=== PATIENT | male | born 2000 | race Caucasian/White ===

== ENCOUNTER 2020-02-18 21:48 | Emergency (ER) | payer SELFPAY ==
[~2020-02-18] VITALS: Ht 180.3 cm; Wt 88.5 kg
[~2020-02-18 21:48] MED LIST: ARIP10TA2 PO; DIVA125T2 PO; SERT25TA PO; SERT50TA9 PO
--- OUTSIDE RECORDS SUMMARY | 2020-02-18 22:32 | XMS REPORT ---
Author Author Aquacue demurrage man [facility] Address [address] [address] Care Team Providers Care Pulmonology Technician Name Role Phone JENN COTA Unavailable Unavailable ISAAC HERNANDEZ Unavailable Unavailable TRANG RUDOLPH Unavailable Unavailable Alexandria Crespo Unavailable Unavailable Celso Hughes Unavailable [facility] Unavailable [facility] Unavailable RICHARD GAGE Unavailable RAFAELA HEALY Unavailable RAMANA TAY Unavailable RAFAELA HEALY Unavailable ERWIN AGUIAR Unavailable NNEKA KAUR Unavailable Migration, Doctor Unavailable Unavailable Migration, Doctor Unavailable Unavailable Migration, Doctor Unavailable Unavailable ROSEY Renteria Unavailable Migration, Doctor Unavailable Unavailable ROSEY Renteria Unavailable ROSEY Renteria Unavailable Elsy, NATALIE Unavailable BRITTA LAMAR Unavailable Migration, Doctor Unavailable Unavailable zAgustina NATALIE Unavailable BRITTA LAMAR Unavailable RAFAELA HEALY Unavailable ANTONINO TORRE Unavailable Unavailable ANTONINO TORRE Unavailable Migration, Doctor Unavailable Unavailable OSMANI CHAN Unavailable zzRAMANDAE, NATALIE Unavailable Unavailable Unavailable Unavailable Unavailable Allergies The data below is from unstructured sources Substance Reaction Event Type N.K.D.A. Info Not Available Non Drug Allergy Allergen Type Severity Reaction Status Last Updated No Known Drug Allergies Active 01/17/12 No Information Medications Medication Ingredient Drug Dose Dates Status Sig Sig Care Class(es) (Normalized) (Original) Provid er atenolol 50 Atenolol beta-Adrene 50 mg 11-07-19 Active take 1 A tenolol 50 no mg oral Translation rgic 19 tablet by MG Orally name tablet (1 s: [ Noe mouth once Once a day 1 source.) Atenolol 50 daily tablet 24h MG] Oct, 30 day(s) Active Problems Problem Normalized Date Last Normalized Normalized Provider Fa cility Classification Problem(s) Recorded Problem Problem Sta tus Duration Other skin Ingrowing nail Episodic Active ALEJANDRO Commun ity disorders (3 Translations: [address] sources.) [ Ingrowing of [facility] nail, [place] ([id number]) Ingrowing nail] Other skin Ingrowing nail Episodic Active ALEJANDRO Commun ity disorders (20 Translations: [address] sources.) [ - Ingrown of [place] ([id number]) right foot with infection L60.0, - Ingrown right greater toenail L60.0, - Ingrowing toenail with infection L60.0, - Ingrowing nail with infection L60.0, - Nail, ingrown L60.0, - Ingrowing left great toenail L60.0, - Nail, ingrown L60.0, - Ingrown right greater toenail L60.0, - Ingrown nail of great toe of right foot L60.0, - Ingrowing nail with infection L60.0, - Ingrowing toenail with infection L60.0, - Ingrown toenail of right foot with infection L60.0, - Ingrowing left great toenail L60.0, - Ingrowing right great toenail L60.0] Procedures Procedure Normalized Procedure Procedure Result Performer Facility Date 07-26-2018 Avulsion nail plate no information no name [facility] partial/complete Center [facility] simple 1 [place] ([id number]) 06-26-2014 Cul bact xcpt urine no information no name [facility] blood/stool aerobic [facility] ([id number]) 05-02-2018 Excision nail matrix no information no name [facility] permanent removal [facility] ([id number]) 07-23-2014 Excision nail matrix no information no name [facility] permanent removal [facility] ([id number]) 09-27-2014 Psychiatric diagnostic no information no name [facility] Health evaluation [facility] ([id number]) 11-07-2014 Psychotherapy no information no name [facility] w/patient 45 minutes [facility] ([id number]) 10-17-2014 Psychotherapy no information no name [facility] w/patient 45 minutes [facility] ([id number]) 11-20-2014 Screening test pure no information no name [facility] tone air only [facility] ([id number]) 11-20-2014 Screening test visual no information [facility] ([id number]) 08-07-2014 Skin test tuberculosis no information no name [facility] intradermal [facility] ([id number]) Tuberculosis screening no information no name [facility] ([id number]) Immunizations The data below is from unstructured sourcesNo immunization records. No Known Immunizations No Known Immunizations No Known Immunizations No Known Immunizations No Known Immunizations No Known Immunizations No Known Immunizations No Known Immunizations No Known Immunizations No Known Immunizations No Known Immunizations No Known Immunizations No Known Immunizations No Known Immunizations No Known Immunizations No Known Immunizations No Known Immunizations No Known Immunizations No Known Immunizations No Known Immunizations No Known Immunizations No Known Immunizations No Known Immunizations No Known Immunizations No Known Immunizations No Known Immunizations No Known Immunizations No Known Immunizations No Known Immunizations No Known Immunizations No Known Immunizations No Known Immunizations No Known Immunizations No Known Immunizations No Known Immunizations No Known Immunizations No Known Immunizations No Known Immunizations No Known Immunizations No Known Immunizations No Known Immunizations No Known Immunizations No Known Immunizations No Known Immunizations Results Test Name Value Interpretation Reference Range Date Time Fa cility (Normalized) (Normalized) (Medline Reference) other on 2017-01-11 Exp date (no code) no information Lot # [id number] (no code) no information Vital Signs Vital Sign Value Interpretation Reference Date Time Care Prov ider Facility (Normalized) (Normalized) Range BMI (Body Mass 23.71 kg/m2 (no code) 15 - 25 kg/m2 07-26-2018 CH KELTY Community Index) 17:20-[address] ([id number]) BMI (Body Mass 24.07 kg/m2 (no code) 15 - 25 kg/m2 05-02-2018 W JOSE HEALY Community Index) 15:20-[address] [place] [address] ([id number]) BMI (Body Mass 23.93 kg/m2 (no code) 15 - 25 kg/m2 04-28-2018 CELI JOHN MARK Community Index) 15:20-[address] [place] [address] ([id number]) Body height 180.34 cm (no code) cm 11-06-2018 ANTONINO Jimenez Community 18:200400 [address] [place] [address] ([id number]) Body height 177.16 cm (no code) cm 06-26-2014 OSMANI MORALEZ [facility] 15:51-[address] [place] [address] ([id number]) Body height 177.29 cm (no code) cm 11-15-2013 Doctor Co mmunity 13:100400 Migration [facility] ([id number]) Body mass 24.84 kg/m2 (no code) 15 - 25 kg/m2 11-06-2018 ANTONINO SUE Community index (BMI) 18:200400 [address] [place] [address] [Ratio] [facility] ([id number]) Body 97.5 [degF] (no code) 97.8 - 99.0 11-06-2018 ANTONINO FELIX Community temperature [degF] 18:200400 [address] [place], [place] [address]e [facility] ([id number]) Body 99.3 [degF] (no code) 97.8 - 99.0 07-26-2018 [facility] Temperature [degF] 17:20-[address] [facility] ([id number] Body 98 [degF] (no code) 97.8 - 99.0 05-02-2018 [facility] Temperature [degF] 15:20-[address] [place] [address] ([id number]) Body 98.1 [degF] (no code) 97.8 - 99.0 04-28-2018 [facility] Temperature [degF] 15:20-0400 [place] [address] [place] [address] ([id number]) Body 98.5 [degF] (no code) 97.8 - 99.0 11-20-2014 NATALIE [facility] Temperature [degF] 12:23-[address] ([id number]) Body 98 [degF] (no code) 97.8 - 99.0 08-13-2014 [facility] [degF] 09:34-[address] ([id number]) Body 98 [degF] (no code) 97.8 - 99.0 07-23-2014 [facility] Temperature [degF] 15:35-[address] [place] [address] ([id number]) Body 97.8 [degF] (no code) 97.8 - 99.0 06-26-2014 OSMANI NVNithya [facility] temperature [degF] 15:51-[address] [place] [address] ([id number]) Body 96.6 [degF] (no code) 97.8 - 99.0 11-15-2013 [facility] temperature [degF] 13:100400 [facility] ([id number]) Body weight 80.79 kg (no code) kg 11-06-2018 [facility] 18:200400 [address] [place] [address] (39293) Body weight 71.22 kg (no code) kg 11-20-2014 NATALIE Com munity 12:230400 [address] ([address]) Body weight 73.94 kg (no code) kg 08-13-2014 NATALIE Com munity 09:34-[address] ([address]) Body weight 72.85 kg (no code) kg 07-23-2014 RAFAELA CELSO [facility] 15:350500 [address] [place] [address] ([id number]) Body weight 72.78 kg (no code) kg 06-26-2014 OSMANI SESAY [facility] 15:510400 [address] [place] [address] ([id number]) Body weight 67.67 kg (no code) kg 11-15-2013 Doctor Com munity 13:10040 Migration [facility] (82342) Height 180.34 cm (no code) cm 07-26-2018 NNEKA Commu nity 17:[address] ([address]) Height 180.34 cm (no code) cm 05-02-2018 [facility] 15:200400 [address] [place] [address] ([id number]) Height 180.34 cm (no code) cm 04-28-2018 ALEJANDRO Comm unity 15:200400 AGUIAR [address] [place] [address] ([id number]) Height 175.26 cm (no code) cm 11-20-2014 NATALIE Commu nity 12:230400 [address] ([address]60) Height 175.26 cm (no code) cm 08-13-2014 NATALIE Commu nity 09:340500 [address] ([address]) Pulse Oximetry 99 % (no code) 95 - 100 % 07-26-2018 [facility] 17:200500 [address] ([address]342) Pulse Oximetry 98 % (no code) 95 - 100 % 05-02-2018 RAFAELA [facility] 15:200400 [address] [place] [address] (39551) Weight 77.11 kg (no code) kg 07-26-2018 [facility] ity 17:200500 [address] ([address]604) Weight 78.29 kg (no code) kg 05-02-2018 RAFAELA Lambert mmunity 15:20-0400 [address] [facility] ([id number]) Weight 77.84 kg (no code) kg 04-28-2018 ERWIN rojas 15:20-0400 AGUIAR [address] [facility] ([id number]) Interventions No Information Plan of Treatment Normalized Care Care Detail Care Activity Date Care Provider F acility Activity no information no information no information RAFAELA HEALY [id number] [place] [address] ([id number]) Goals No Information Social History No Information Functional Status The data below is from unstructured sources Query Response Date Shun rded Comprehension Ability Understands Co ncepts October 18, 2014 1:00pm Mental Status No Information Encounters Encounter Normalized Encounter Encounter Diagnosis Care Provi lana Organization Date Type 12-05-2018 ([facility]) Chronic Health Generalized anxiety ANTONINO FELIX [facility] - Maintenance disorder phone) (no phone) 12-05-2018 - 12-05-2018 03-16-2019 [facility] ANTONINO GUARDADO [facility] CARE phone) CARE (no phone) 03-16-2019 - 03-16-2019 11-24-2017 Patient encounter no information no name no or ganization name 09-19-2017 Patient encounter no information no name no or ganization name 01-11-2017 Patient encounter no information no name no or ganization name 03-16-2019 Patient encounter no information no name no or ganization name procedure 03-16-2019 Patient encounter no information no name no or ganization name procedure 12-05-2018 Patient encounter no information no name no or ganization name procedure 11-06-2018 Patient encounter no information no name no or ganization name procedure 09-14-2018 Patient encounter no information no name no or ganization name procedure 07-14-2019 Telephone encounter no information ANTONINO TORRE [facility] phone) (no phone) 06-28-2019 Telephone encounter no information ANTONINO TORRE [facility] phone) (no phone) 04-18-2019 Telephone encounter no information ANTONINO TORRE [facility] - phone) (no phone) 04-18-2019 - 04-18-2019 Well child visit Well child visit no name no organiza tion name Medical Equipment No Information Payers No Information History general Narrative - Reported Note Type Note Facility History general Narrative - Reported Type Medical autism History Medical depression History Medical anxiety History Surgical No Surgical history informa tion History [facility] ([id number]) Summary Purpose eClinicalWorks SubmissioneClinicalWorks SubmissioneClinicalWorks Submission Family History Name Dates Details asthma-paternal aunt and uncle Status: Active Depression Status: Active Advance Directives Directive Response Recor ded Date/Time Advance Directives No 12:32am Resuscitation Status Full Code 10/07/14 12:32am Directive Response Recor ded Date/Time Advance Directives No 10:50pm Resuscitation Status Full Code 10/17/14 10:50pm Discharge Instructions No hospital discharge instructions. Patient Instructions Physician Instructions Goal/Follow Up Appt: Follow up with Dr. Chan after discharge from inpatient facility Discharge Diet: Regular Diet Activity as Tolerated: Yes Additional Source Comments This clinical document has been generated using Directr software that has been certified by the Office of the National Coordinator for Health Information Technology (ONC 15.99.04.3023.Diam.[id number]) and the National Committee for [employer] (NCQA, as an eMeasure certified technology). FOR RECORDS PERTAINING TO PATIENTS WHO ARE OR HAVE BEEN ENROLLED IN A CHEMICAL D EPENDENCY/SUBSTANCE ABUSE PROGRAM, SOME INFORMATION MAY BE OMITTED. This clinica l summary was aggregated from multiple sources. Caution should be exercised in using it in the provision of clinical care. This summary normalizes information from multiple sources, and as a consequence, information in this document may ma terially change the coding, format and clinical context of patient data. In armando tion, data may be omitted in some cases. CLINICAL DECISIONS SHOULD BE BASED ON T HE PRIMARY CLINICAL RECORDS. [employer] provides no warranty or guara ntee of the accuracy or completeness of information in this document.The followi ng information is based on time limited clinical information UNRECOGNIZED CONTENT PROVIDED BELOW FOR UNRECOGNIZED SECTION MEDICAL (GENERAL) HISTORY Type Description Date Medical History autism Medical History depression Type Description Date Medical History autism Medical History depression Surgical History No know Surgical history Type Description Date Medical History autism Medical History depression Medical History anxiety Surgical History No Surgical history information UNRECOGNIZED CONTENT PROVIDED BELOW FOR UNRECOGNIZED SECTION REASON FOR VISIT ingrown toenail on his right foot -Diallo BROWN right great toe pain for 10 days. stubbed it against a staircase. has appt with tomasz on 05/02/2018, but he thinks he needs an antibiotic beforehand. keilasabraYoseftoshia was given script for his infect ed toe on 04-28-18 he did not take it at that time then was seen on 05-02-18 and alina fox the toe nail partially removed and 10 days ago it became infected he thinks an d began taking the original medication for it. Pt presents with swelling to the right great toe which is having a bloody puss like discharge at this time .MAZE [id number]-MigEstablish Care/IPT - dr shyanne snider - marleny brown, feels like h e has insomnia - cant tell if he has been sleeping or not - marleny brown, been havin g hallucinations and see figures in closets of people - doesnt know if its the m edication or not- marleny brown, has trembling in hands and isnt getting better - sha angel ma
--- OUTSIDE RECORDS SUMMARY | 2020-02-18 22:32 | XMS REPORT ---
Author Author Tomasa CHAN Organization [facility] Address [address] [place] [address] Care Team Providers Care Ekg Manager Name Role Phone OSMANI CHAN Unavailable PROBLEMS Type Condition ICD9-CM Code [id number] Code Onset Dates Condition S tatus SNOMED Code Problem Generalized anxiety disorder F41.1 A ctive 71957270 Problem Cerebellar tremor G25.2 Active 30 875025 ALLERGIES No Information ENCOUNTERS Encounter Location Date Diagnosis [place] [address] [address] [facility] [id number] [address] [place] [phone] Jun, [facility] [address] [facility] [id number] [address] [place] [phone] May, [facility] [address] [facility] [id number] [address] [place] [phone] Mar, [facility] [address] [facility] [id number] [address] [place] [phone] Feb, Ingrowing right great toenai l L60.0 and Cellulitis of toe of right foot L03.031 [facility] [address] [facility] [id number] [address] [place] [phone] Nov, Generalized anxiety disorder F41.1 and Cerebellar tremor G25.2 [facility] [address] [facility] [id number] [address] [place] [phone] Oct, Generalized anxiety disorder F41.1 and Cerebellar tremor G25.2 [facility] [address] [facility] [id number] [address] [place] [phone] Sep, [facility] [address] [facility] [id number] [address] [place] [phone] 17 Billy, 2019 Generalized anxiety disorder F41.1 [facility] [address] [facility] [id number] [address] [place] [phone] Jun, Ingrown nail of great toe of right foot L60.0 [facility] [address] [facility] [id number] [address] [place] [phone] Apr, Ingrowing nail with infectio n L60.0 [facility] [address] [place] [id number] [address] [place] [phone] Mar, Ingrown toenail of right abdoulaye t with infection L60.0 [facility] [address] [facility] [id number] [address] [place] [phone] Oct, Influenza J11.1 and Cough R0 5 [place] [address] [address] [facility] [id number] [address] [place] [phone] Aug, Ingrown right greater toenai l L60.0 [facility] [address] [place] [id number] [address] [place] [phone] Aug, Ingrowing nail with infectio n L60.0 [facility] [address] [place] [id number] [address] [place] [phone] December, Nail, ingrown L60.0 [facility] [address] [place] [id number] [address] [place] [phone] Sep, Influenza A J10.1 and Fever R50.9 [facility] [address] [place] [id number] [address] [place] [phone] Jun, Nail, ingrown L60.0 and Paro nychia, left L03.012 [facility] [address] [place] [id number] [address] [place] [phone] Jun, [facility] [address] [facility] [id number] [address] [place] [phone] Jun, Ingrowing left great toenail L60.0 and Ingrowing toenail with infection L60.0 [facility] [address] [facility] [id number] [address] [place] [phone] 04 May, 2016 Ingrowing toenail with infec tion L60.0 [facility] [address] [facility] [id number] [address] [place] [phone] 14 Apr, 2016 Coughing R05 [facility] [address] [facility] [id number] [address] [place] [phone] Oct, Encounter for PPD test Z11.1 [facility] [address] [facility] [id number] [address] [place] [phone] 24 Sep, 2015 Encounter for PPD test Z11.1 [facility] [address] [facility] [id number] [address] [place] [phone] Aug, Acute viral conjunctivitis o f both eyes B30.9 [facility] [address] [facility] [id number] [address] [place] [phone] Jun, Encounter for immunization Z 23 [facility] [address] [facility] [id number] [address] [place] [phone] 14 Nov, 2014 [facility] [address] [facility] [id number] [address] [place] [phone] Nov, [facility] [address] [facility] [id number] [address] [place] [phone] Oct, [facility] [address] [facility] [id number] [address] [place] [phone] Oct, [facility] [address] [facility] [id number] [address] [place] [phone] Oct, [facility] [address] [facility] [id number] [address] [place] [phone] Oct, [facility] [address] [facility] [id number] [address] [place] [phone] Oct, [facility] [address] [facility] [id number] [address] [place] [phone] Oct, [facility] [address] [id number] [address] [place] [address], [place] [address] Oct, [facility] [address] [id number] [address] [place] [address], [place] [address] Oct, [facility] [address] [id number] [address] [place] [address], [place] [address] Oct, [facility] [address] [id number] [address] [place] [address], [place] [address] Oct, [facility] [address] [id number] [address] [place] [address], [place] [address] Sep, [facility] [address] [id number] [address] [place] [address], [place] [address] Sep, [facility] [address] [id number] [address] [place] [address], [place] [address] Aug, [facility] [address] [id number] [address] [place] [address], [place] [address] Aug, [facility] [address] [id number] [address] [place] [address], [place] [address] Jul, [facility] [address] [id number] [address] [place] [address], [place] [address] Jul, [facility] [address] [id number] [address] [place] [address], [place] [address] Jul, [facility] [address] [id number] [address] [place] [phone] Jul, [facility] [address] [id number] [address] [place] [address], [place] [address] Jun, [facility] [address] [id number] [address] [place] [address], [place] [address] Jun, [facility] [address] [id number] [address] [place] [address], [place] [address] 31 May, 2014 [facility] [address] [id number] [address] [place] [phone] May, [facility] [address] [id number] [address] [place] [phone] May, [facility] [address] [id number] [address] [place] [phone] May, [facility] [address] [id number] [address] [place] [phone] Oct, [facility] [address] [id number] [address] [place] [phone] Oct, [facility] [address] [id number] [address] [place] [phone] Oct, [facility] [address] [id number] [address] [place] [phone] Oct, [facility] [address] [id number] [address] [place] [phone] Sep, [facility] [address] [id number] [address] [place] [phone] Aug, [facility] [address] [id number] [address] [place] [phone] Aug, [facility] [address] [id number] [address] [place] [phone] Jun, [facility] [address] [id number] [address] [place] [phone] Jun, [facility] [address] [id number] [address] [place] [phone] May, [facility] [address] [id number] [address] [place] [phone] May, [facility] [address] [id number] [address] [place] [phone] Nov, IMMUNIZATIONS No Known Immunizations SOCIAL HISTORY Never Assessed REASON FOR VISIT PLAN OF CARE VITAL SIGNS Height 69.75 in 2014-06-26 Weight 160.44 lbs 2014-06-26 Temperature 97.8 degrees Fahrenheit 2014-06-26 Heart Rate 80 bpm 2014-06-26 Respiratory Rate 20 2014-06-26 Blood pressure systolic 146 mmHg 2014-06-26 Blood pressure diastolic 82 mmHg 2014-06-26 MEDICATIONS Unknown Medications RESULTS No Results PROCEDURES Procedure Date Ordered Result Body Site CULTURE, BACTERIA, OTHER Jun 26, 2014 INSTRUCTIONS MEDICATIONS ADMINISTERED No Known Medications MEDICAL (GENERAL) HISTORY Type Description Date Medical History autism Medical History depression Medical History anxiety Surgical History No Surgical history information
--- OUTSIDE RECORDS SUMMARY | 2020-02-18 22:32 | XMS REPORT ---
Author Author Tomasa Chin Organization [facility] Address [address] [place] [address] Care Team Providers Care Last Waxer Name Role Phone NATALIE Chin Unavailable PROBLEMS Type Condition ICD9-CM Code PYM08-OV Code Onset Dates Condition S tatus SNOMED Code Problem Generalized anxiety disorder F41.1 A ctive 38228494 Problem Cerebellar tremor G25.2 Active 30 828761 ALLERGIES No Information ENCOUNTERS Encounter Location Date Diagnosis [place] [address] [id number] [place] [phone] Jun, [place] [address] [address] [place] [id number] [address] [place] [phone] May, [facility] [address] [place] [id number] [address] [place] [phone] Mar, [facility] [address] [facility] [id number] [address] [place] [phone] Feb, Ingrowing right great toenai l L60.0 and Cellulitis of toe of right foot L03.031 [facility] [address] [place] [id number] [address] [place] [phone] Nov, Generalized anxiety disorder F41.1 and Cerebellar tremor G25.2 [facility] [address] [facility] [id number] [address] [place] [phone] Oct, Generalized anxiety disorder F41.1 and Cerebellar tremor G25.2 [facility] [address] [facility] [id number] [address] [place] [phone] Sep, [facility] [address] [place] [id number] [address] [place] [phone] Aug, Generalized anxiety disorder F41.1 [facility] [address] [place] [id number] [address] [place] [phone] Jun, Ingrown nail of great toe of right foot L60.0 [facility] [address] [facility] [id number] [address] [place] [phone] Apr, Ingrowing nail with infectio n L60.0 [facility] [address] [place] [id number] [address] [place] [phone] Mar, Ingrown toenail of right abdoulaye t with infection L60.0 [facility] [place] [id number] [address] [place] [phone] Oct, Influenza J11.1 and Cough R0 5 [place] [address] [phone] Aug, Ingrown right greater toenai l L60.0 [place] [address] [address] [place] [id number] [address] [place] [phone] Aug, Ingrowing nail with infectio n L60.0 [place] [address] [phone] December, Nail, ingrown L60.0 [facility] [place] [address] [address] [place] [id number] [address] [place] [phone] Sep, Influenza A J10.1 and Fever R50.9 [place] [address] [address] [place] [id number] [address] [place] [phone] Jun, Nail, ingrown L60.0 and Paro nychia, left L03.012 [place] [address] [address] [place] [id number] [address] [place] [phone] Jun, [facility] [address] [place] [id number] [address] [place] [phone] Jun, Ingrowing left great toenail L60.0 and Ingrowing toenail with infection L60.0 [facility] [address] [facility] [id number] [address] [place] [phone] 04 May, 2016 Ingrowing toenail with infec tion L60.0 [facility] [address] [facility] [id number] [address] [place] [phone] 14 Apr, 2016 Coughing R05 [facility] [address] [facility] [id number] [address] [place] [phone] Oct, Encounter for PPD test Z11.1 [facility] [address] [facility] [id number] [address] [place] [phone] 24 Sep, 2015 Encounter for PPD test Z11.1 [facility] [address] [facility] [id number] [address] [place] [phone] Aug, Acute viral conjunctivitis o f both eyes B30.9 [facility] [address] [facility] [id number] [address] [place] [phone] Jun, Encounter for immunization Z 23 [facility] [address] [facility] [id number] [address] [place] [phone] 14 Nov, 2014 [facility] [address] [facility] [id number] [address] [place] [phone] Nov, [facility] [address] [facility] [id number] [address] [place] [phone] Oct, [facility] [address] [facility] [id number] [address] [place] [phone] 25 Oct, 2014 [facility] [address] [facility] [id number] [address] [place] [phone] Oct, [facility] [address] [facility] [id number] [address] [place] [phone] Oct, [facility] [address] [facility] [id number] [address] [place] [phone] 13 Oct, 2014 [facility] [address] [facility] [id number] [address] [place] [phone] Oct, [facility] [address] [id number] [address] [place] [address], [place] [address] Oct, [facility] [address] [id number] [address] [place] [address], [place] [address] Oct, [facility] [address] [id number] [address] [place] [address], [place] [address] Oct, [facility] [address] [id number] [address] [place] [address], [place] [address] Oct, [facility] [address] [id number] [address] [place] [address], [place] [address] Sep, [facility] [address] [id number] [address] [place] [address], [place] [address] Sep, [facility] [address] [id number] [address] [place] [address], [place] [address] Aug, [facility] [address] [id number] [address] [place] [address], [place] [address] Aug, [facility] [address] [id number] [address] [place] [address], [place] [address] Jul, [facility] [address] [id number] [address] [place] [address], [place] [address] Jul, [facility] [address] [id number] [address] [place] [address], [place] [address] Jul, [facility] [address] [id number] [address] [place] [address], [place] [address] Jul, [facility] [address] [id number] [address] [place] [address], [place] [address] Jun, [facility] [address] [id number] [address] [place] [address], [place] [address] Jun, [facility] [address] [id number] [address] [place] [address], [place] [address] May, [facility] [address] [id number] [address] [place] [phone] 30 May, 2014 [facility] [address] [id number] [address] [place] [phone] May, [facility] [address] [id number] [address] [place] [phone] May, [facility] [address] [id number] [address] [place] [phone] Oct, [facility] [address] [id number] [address] [place] [phone] Oct, [facility] [address] [id number] [address] [place] [phone] Oct, [facility] [address] [id number] [address] [place] [phone] Oct, [facility] [address] [id number] [address] [place] [phone] Sep, [facility] [address] [id number] [address] [place] [phone] Aug, [facility] [address] [id number] [address] [place] [phone] Aug, [facility] [address] [id number] [address] [place] [phone] Jun, [facility] [address] [id number] [address] [place] [phone] Jun, [facility] [address] [id number] [address] [place] [phone] May, [facility] [address] [id number] [address] [place] [phone] May, [facility] [address] [id number] [address] [place] [phone] Nov, IMMUNIZATIONS No Known Immunizations SOCIAL HISTORY Never Assessed REASON FOR VISIT PLAN OF CARE VITAL SIGNS MEDICATIONS Unknown Medications RESULTS No Results PROCEDURES Procedure Date Ordered Result Body Site TB INTRADERMAL TEST Aug 07, 2014 INSTRUCTIONS MEDICATIONS ADMINISTERED No Known Medications MEDICAL (GENERAL) HISTORY Type Description Date Medical History autism Medical History depression Medical History anxiety Surgical History No Surgical history information
--- OUTSIDE RECORDS SUMMARY | 2020-02-18 22:33 | XMS REPORT ---
Author Author Tomasa LAMAR Organization [facility] Address Unknown Care Team Providers Care Manager Work Name Role Phone BRITTA LAMAR Unavailable PROBLEMS Type Condition ICD9-CM Code [id number] Code Onset Dates Condition S tatus SNOMED Code Problem Generalized anxiety disorder F41.1 A ctive 57636154 Problem Cerebellar tremor G25.2 Active 30 [id number] ALLERGIES No Information ENCOUNTERS Encounter Location Date Diagnosis [facility] [address] [id number] [address] [place] [phone] Nov, Generalized anxiety disorder F41.1 and Cerebellar tremor G25.2 [facility] [address] [address] [id number] [address] [place] [phone] Oct, Generalized anxiety disorder F41.1 and Cerebellar tremor G25.2 [facility] [address] [id number] [address] [place] [address] Sep, [facility] [address] [id number] [address] [place] [phone] Aug, Generalized anxiety disorder F41.1 [facility] [address] [id number] [address] [place] [phone] Jun, Ingrown nail of great toe of right foot L60.0 [facility] [address] [id number] [address] [place] [address] Apr, Ingrowing nail with infectio n L60.0 [facility] [address] [id number] [address] [place] [phone] Mar, Ingrown toenail of right abdoulaye t with infection L60.0 [facility] [address] [id number] [address] [place] [address] Oct, Influenza J11.1 and Cough R0 5 [facility] [address] [facility] [id number] [address] [place] [address] Aug, Ingrown right greater toenai l L60.0 [facility] [address] [facility] [id number] [address] [place] [phone] Aug, Ingrowing nail with infectio n L60.0 [facility] [address] [facility] [id number] [address] [place] [address] December, Nail, ingrown L60.0 [facility] [address] [facility] [id number] [address] [place] [phone] Sep, Influenza A J10.1 and Fever R50.9 [place] [address] [facility] [id number] [address] [place] [address] Jun, Nail, ingrown L60.0 and Paro nychia, left L03.012 [facility] [address] [facility] [id number] [address] [place] [phone] Jun, [facility] [address] [facility] [id number] [address] [place] [phone] Jun, Ingrowing left great toenail L60.0 and Ingrowing toenail with infection L60.0 [facility] [address] [facility] [id number] [address] [place] [phone] May, Ingrowing toenail with infec tion L60.0 [facility] [address] [facility] [id number] [address] [place] [phone] 14 Apr, 2016 Coughing R05 [place] [address] [facility] [id number] [address] [place] [phone] Oct, Encounter for PPD test Z11.1 [facility] [address] [facility] [id number] [address] [place] [phone] 24 Sep, 2015 Encounter for PPD test Z11.1 [facility] [address] [id number] [address] [place] [phone] 06 Aug, 2015 Acute viral conjunctivitis o f both eyes B30.9 [facility] [address] [id number] [address] [place] [phone] 18 Jun, 2015 Encounter for immunization Z 23 [facility] [address] [id number] [address] [place] [phone] 14 Nov, 2014 [facility] [address] [id number] [address] [place] [phone] 13 Nov, 2014 [facility] [address] [id number] [address] [place] [phone] 25 Oct, 2014 [facility] [address] [id number] [address] [place] [phone] 25 Oct, 2014 [facility] [address] [id number] [address] [place] [phone] Oct, [facility] [address] [id number] [address] [place] [phone] Oct, [facility] [address] [id number] [address] [place] [phone] Oct, [facility] [address] [id number] [address] [place] [phone] Oct, [facility] [address] [id number] [address] [place] [phone] Oct, [facility] [address] [id number] [address] [place] [address] Oct, [facility] [address] [id number] [address] [place] [phone] Oct, [facility] [address] [id number] [address] [place] [phone] Oct, [facility] [address] [id number] [address] [place] [phone] Sep, [facility] [address] [id number] [address] [place] [address], [place] [address] Sep, [facility] [address] [id number] [address] [place] [address], [place] [address] Aug, [facility] [address] [id number] [address] [place] [address], [place] [address] Aug, [facility] [address] [id number] [address] [place] [address], [place] [address] Jul, [facility] [address] [id number] [address] [place] [address], [place] [address] Jul, [facility] [address] [id number] [address] [place] [address], [place] [address] Jul, [facility] [address] [id number] [address] [place] [address], [place] [address] Jul, [facility] [address] [id number] [address] [place] [address], [place] [address] Jun, [facility] [address] [id number] [address] [place] [address], [place] [address] Jun, [facility] [address] [id number] [address] [place] [address], [place] [address] May, [facility] [address] [id number] [address] [place] [address], [place] [address] May, [facility] [address] [id number] [address] [place] [address], [place] [address] May, [facility] [address] [id number] [address] [place] [address], [place] [address] May, [facility] [address] [id number] [address] [place] [address], [place] [address] Oct, [facility] [address] [id number] [address] [place] [address], [place] [address] Oct, [facility] [address] [id number] [address] [place] [address], [place] [address] Oct, [facility] [address] [id number] [address] [place] [phone] Oct, [facility] [address] [id number] [address] [place] [address] Sep, [facility] [address] [id number] [address] [place] [phone] Aug, [facility] [address] [id number] [address] [place] [phone] Aug, [facility] [address] [id number] [address] [place] [phone] Jun, [facility] [address] [id number] [address] [place] [address] Jun, [facility] [address] [id number] [address] [place] [phone] May, [facility] [address] [id number] [address] [place] [phone] May, [facility] [address] [id number] [address] [place] [address] Nov, IMMUNIZATIONS No Known Immunizations SOCIAL HISTORY Never Assessed REASON FOR VISIT PLAN OF CARE VITAL SIGNS MEDICATIONS Unknown Medications RESULTS No Results PROCEDURES Procedure Date Ordered Result Body Site PSYTX PT&/FAMILY 45 MINUTES November 07, 2014 INSTRUCTIONS MEDICATIONS ADMINISTERED No Known Medications MEDICAL (GENERAL) HISTORY Type Description Date Medical History autism Medical History depression Medical History anxiety Surgical History No Surgical history information
--- OUTSIDE RECORDS SUMMARY | 2020-02-18 22:33 | XMS REPORT ---
Author Author Tomasa Chin Organization [facility] Address [address] [place] [address] Care Team Providers Care Linseed Oil Temperer Name Role Phone NATALIE Chin Unavailable PROBLEMS Type Condition ICD9-CM Code [id number] Code Onset Dates Condition S tatus SNOMED Code Problem Generalized anxiety disorder F41.1 A ctive [id number] Problem Cerebellar tremor G25.2 Active 30 132385 ALLERGIES No Information ENCOUNTERS Encounter Location Date Diagnosis [place] [address] [id number] Nov, Generalized anxiety disorder F41.1 and Cerebellar tremor G25.2 [facility] [address] [address] Oct, Generalized anxiety disorder F41.1 and Cerebellar tremor G25.2 [facility] [address] [address] Sep, [facility] [address] [address] Aug, Generalized anxiety disorder F41.1 [facility] [address] [id number] [address] [place] [address] Jun, Ingrown nail of great toe of right foot L60.0 [facility] [address] [id number] [address] [place] [address] Apr, Ingrowing nail with infectio n L60.0 [facility] [address] [id number] [address] [place] [phone] Mar, Ingrown toenail of right abdoulaye t with infection L60.0 [facility] [address] [facility] [id number] [address] [place] [address] Oct, Influenza J11.1 and Cough R0 5 [place] [address] [phone] Aug, Ingrown right greater toenai l L60.0 [place] [address] [address] Aug, Ingrowing nail with infectio n L60.0 [place] [address] [id number] [address] [place] [phone] December, Nail, ingrown L60.0 [facility] [address] [address] Sep, Influenza A J10.1 and Fever R50.9 [place] [address] [address] Jun, Nail, ingrown L60.0 and Paro nychia, left L03.012 [place] [address] [address] Jun, [facility] [address] [address] Jun, Ingrowing left great toenail L60.0 and Ingrowing toenail with infection L60.0 [place] [address] [id number] [address] [place] [address] May, Ingrowing toenail with infec tion L60.0 [facility] [address] 14 Apr, 2016 Coughing R05 [place] [address] [address] Oct, Encounter for PPD test Z11.1 [place] [address] [id number] 24 Sep, 2015 Encounter for PPD test Z11.1 [facility] [address] [id number] [address] [place] [phone] Aug, Acute viral conjunctivitis o f both eyes B30.9 [facility] [address] [id number] [address] [place] [phone] 18 Jun, 2015 Encounter for immunization Z 23 [facility] [address] [id number] [address] [place] [phone] 14 Nov, 2014 [facility] [address] [id number] [address] [place] [phone] Nov, [facility] [address] [id number] [address] [place] [address] Oct, [facility] [address] [id number] [address] [place] [phone] Oct, [facility] [address] [id number] [address] [place] [phone] Oct, [facility] [address] [id number] [address] [place] [phone] Oct, [facility] [address] [id number] [address] [place] [phone] Oct, [facility] [address] [id number] [address] [place] [phone] Oct, [facility] [address] [id number] [address] [place] [phone] Oct, [facility] [address] [id number] [address] [place] [phone] Oct, [facility] [address] [id number] [address] [place] [phone] Oct, [facility] [address] [id number] [address] [place] [address] Oct, [facility] [address] [id number] [address] [place] [address] Sep, [facility] [address] [id number] [address] [place] [address], [place] [address] Sep, [facility] [address] [id number] [address] [place] [address], [place] [address] Aug, [facility] [address] [id number] [address] [place] [address], [place] [address] Aug, [facility] [address] [id number] [address] [place] [address], [place] [address] Jul, [facility] [address] [id number] [address] [place] [address], [place] [address] Jul, [facility] [address] [id number] [address] [place] [address], [place] [address] Jul, [facility] [address] [id number] [address] [place] [address], [place] [address] Jul, [facility] [address] [id number] [address] [place] [address], [place] [address] Jun, [facility] [address] [id number] [address] [place] [address], [place] [address] Jun, [facility] [address] [id number] [address] [place] [address], [place] [address] May, [facility] [address] [id number] [address] [place] [address], [place] [address] May, [facility] [address] [id number] [address] [place] [address], [place] [address] May, [facility] [address] [id number] [address] [place] [address], [place] [address] May, [facility] [address] [id number] [address] [place] [address], [place] [address] Oct, [facility] [address] [id number] [address] [place] [address], [place] [address] Oct, [facility] [address] [id number] [address] [place] [phone] 15 Oct, 2011 [facility] [address] [id number] [address] [place] [phone] Oct, [facility] [address] [id number] [address] [place] [phone] Sep, [facility] [address] [id number] [address] [place] [phone] Aug, [facility] [address] [id number] [address] [place] [phone] Aug, [facility] [address] [id number] [address] [place] [phone] Jun, [facility] [address] [id number] [address] [place] [phone] Jun, [facility] [address] [id number] [address] [place] [phone] May, [facility] [address] [id number] [address] [place] [phone] May, [facility] [address] [id number] [address] [place] [phone] Nov, IMMUNIZATIONS No Known Immunizations SOCIAL HISTORY Never Assessed REASON FOR VISIT PLAN OF CARE VITAL SIGNS Height 69 in 2014-11-20 Weight 157 lbs 2014-11-20 Temperature 98.5 degrees Fahrenheit 2014-11-20 Heart Rate 88 bpm 2014-11-20 Respiratory Rate 16 2014-11-20 Blood pressure systolic 114 mmHg 2014-11-20 Blood pressure diastolic 74 mmHg 2014-11-20 MEDICATIONS Unknown Medications RESULTS No Results PROCEDURES Procedure Date Ordered Result Body Site VISUAL ACUITY SCREEN November 20, 2014 AUDIOMETRY-SCREEN November 20, 2014 INSTRUCTIONS MEDICATIONS ADMINISTERED No Known Medications MEDICAL (GENERAL) HISTORY Type Description Date Medical History autism Medical History depression Medical History anxiety Surgical History No Surgical history information
--- OUTSIDE RECORDS SUMMARY | 2020-02-18 22:33 | XMS REPORT ---
Author Author Tomasa Chin Organization [facility] Address [address] [place] [address] Care Team Providers Care Outboard System Operator Name Role Phone NATALIE Chin Unavailable PROBLEMS Type Condition ICD9-CM Code [id number] Code Onset Dates Condition S tatus SNOMED Code Problem Generalized anxiety disorder F41.1 A ctive 49883650 Problem Cerebellar tremor G25.2 Active 30 [id number] ALLERGIES No Information ENCOUNTERS Encounter Location Date Diagnosis [facility] [address] [id number] [address] [place] [phone] Mar, [facility] [address] [id number] [address] [place] [address] Feb, Ingrowing right great toenai l L60.0 and Cellulitis of toe of right foot L03.031 [place] [address] [id number] [address] [place] [phone] Nov, Generalized anxiety disorder F41.1 and Cerebellar tremor G25.2 [facility] [address] [id number] [address] [place] [phone] Oct, Generalized anxiety disorder F41.1 and Cerebellar tremor G25.2 [facility] [address] [facility] [id number] [address] [place] [phone] Sep, [facility] [address] [facility] [id number] [address] [place] [phone] Aug, Generalized anxiety disorder F41.1 [facility] [address] [facility] [id number] [address] [place] [phone] Jun, Ingrown nail of great toe of right foot L60.0 [facility] [address] [id number] [address] [place] [phone] Apr, Ingrowing nail with infectio n L60.0 [facility] [address] [facility] [id number] [address] [place] [phone] Mar, Ingrown toenail of right abdoulaye t with infection L60.0 [facility] [address] [facility] [id number] [address] [place] [phone] Oct, Influenza J11.1 and Cough R0 5 [place] [address] [facility] [id number] [address] [place] [phone] Aug, Ingrown right greater toenai l L60.0 [place] [id number] [address] [place] [phone] Aug, Ingrowing nail with infectio n L60.0 [place] [address] [place] [address] [id number] [address] [place] [phone] December, Nail, ingrown L60.0 [facility] [address] [id number] [address] [place] [phone] Sep, Influenza A J10.1 and Fever R50.9 [place] [id number] [address] [place] [phone] Jun, Nail, ingrown L60.0 and Paro nychia, left L03.012 [facility] [id number] [address] [place] [phone] Jun, [facility] [id number] [address] [place] [phone] Jun, Ingrowing left great toenail L60.0 and Ingrowing toenail with infection L60.0 [facility] [address] [facility] [id number] [address] [place] [phone] May, Ingrowing toenail with infec tion L60.0 [facility] [id number] [address] [place] [id number] 14 Apr, 2016 Coughing R05 [facility] [address] [facility] [id number] [address] [place] [id number] 21 Oct, 2015 Encounter for PPD test Z11.1 [facility] [address] [facility] [id number] [address] [place] [phone] 24 Sep, 2015 Encounter for PPD test Z11.1 [facility] [address] [facility] [id number] [address] [place] [phone] 06 Aug, 2015 Acute viral conjunctivitis o f both eyes B30.9 [facility] [address] [facility] [id number] [address] [place] [phone] Jun, Encounter for immunization Z 23 [facility] [address] [facility] [id number] [address] [place] [phone] 14 Nov, 2014 [facility] [address] [id number] [address] [place] [phone] Nov, [facility] [address] [id number] [address] [place] [phone] Oct, [facility] [address] [id number] [address] [place] [phone] Oct, [facility] [address] [facility] [id number] [address] [place] [phone] Oct, [facility] [address] [id number] [address] [place] [phone] 23 Oct, 2014 [facility] [address] [id number] [address] [place] [phone] Oct, [facility] [address] [id number] [address] [place] [phone] Oct, [facility] [address] [facility] [id number] [address] [place] [phone] Oct, [facility] [address] [facility] [id number] [address] [place] [phone] Oct, [facility] [address] [id number] [address] [place] [address], [place] [address] Oct, [facility] [address] [id number] [address] [place] [address], [place] [address] Oct, [facility] [address] [id number] [address] [place] [address], [place] [address] Sep, [facility] [address] [id number] [address] [place] [address], [place] [address] Sep, [facility] [address] [id number] [address] [place] [address], [place] [phone] Aug, [facility] [address] [id number] [address] [place] [address], [place] [address] Aug, [facility] [address] [id number] [address] [place] [address], [place] [address] Jul, [facility] [address] [id number] [address] [place] [address], [place] [address] Jul, [facility] [address] [id number] [address] [place] [address], [place] [address] Jul, [facility] [address] [id number] [address] [place] [address], [place] [address] Jul, [facility] [address] [id number] [address] [place] [address], [place] [address] Jun, [facility] [address] [id number] [address] [place] [address], [place] [address] Jun, [facility] [address] [id number] [address] [place] [address], [place] [address] May, [facility] [address] [id number] [address] [place] [address], [place] [address] May, [facility] [address] [id number] [address] [place] [address], [place] [address] May, [facility] [address] [id number] [address] [place] [phone] May, [facility] [address] [id number] [address] [place] [phone] Oct, [facility] [address] [id number] [address] [place] [phone] Oct, [facility] [address] [id number] [address] [place] [phone] Oct, [facility] [address] [id number] [address] [place] [phone] Oct, [facility] [address] [id number] [address] [place] [phone] Sep, [facility] [address] [id number] [address] [place] [phone] Aug, [facility] [address] [id number] [address] [place] [phone] Aug, [facility] [address] [id number] [address] [place] [phone] Jun, [facility] [address] [id number] [address] [place] [phone] Jun, [facility] [address] [id number] [address] [place] [phone] May, [facility] [address] [id number] [address] [place] [phone] May, [facility] [address] [id number] [address] [place] [phone] Nov, IMMUNIZATIONS No Known Immunizations SOCIAL HISTORY Never Assessed REASON FOR VISIT PLAN OF CARE VITAL SIGNS Height 69 in 2014-08-13 Weight 163 lbs 2014-08-13 Temperature 98 degrees Fahrenheit 2014-08-13 Heart Rate 88 bpm 2014-08-13 Respiratory Rate 14 2014-08-13 Blood pressure systolic 118 mmHg 2014-08-13 Blood pressure diastolic 68 mmHg 2014-08-13 MEDICATIONS Unknown Medications RESULTS No Results PROCEDURES No Known procedures INSTRUCTIONS MEDICATIONS ADMINISTERED No Known Medications MEDICAL (GENERAL) HISTORY Type Description Date Medical History autism Medical History depression Medical History anxiety Surgical History No Surgical history information
--- OUTSIDE RECORDS SUMMARY | 2020-02-18 22:33 | XMS REPORT ---
Author Author Tomasa HEALY Organization [facility] Address [address] [place] [address] Care Team Providers Care Senior Business Intelligence Analyst Name Role Phone NIRAJRAFAELA Unavailable PROBLEMS Type Condition ICD9-CM Code OJE81-DB Code Onset Dates Condition S tatus SNOMED Code Problem Generalized anxiety disorder F41.1 A ctive [id number] Problem Cerebellar tremor G25.2 Active 30 962144 ALLERGIES No Information ENCOUNTERS Encounter Location Date Diagnosis [facility] [address] [facility] [id number] [address] [place] [phone] Mar, [facility] [address] [facility] [id number] [address] [place] [phone] Feb, Ingrowing right great toenai l L60.0 and Cellulitis of toe of right foot L03.031 [facility] [address] [facility] [id number] [address] [place] [phone] Nov, Generalized anxiety disorder F41.1 and Cerebellar tremor G25.2 [facility] [address] [facility] [id number] [address] [place] [phone] Oct, Generalized anxiety disorder F41.1 and Cerebellar tremor G25.2 [facility] [address] [facility] [id number] [address] [place] [phone] Sep, [facility] [address] [facility] [id number] [address] [place] [phone] Aug, Generalized anxiety disorder F41.1 [facility] [address] [facility] [id number] [address] [place] [phone] Jun, Ingrown nail of great toe of right foot L60.0 [facility] [address] [facility] [id number] [address] [place] [phone] Apr, Ingrowing nail with infectio n L60.0 [facility] [address] [id number] [address] [place] [phone] Mar, Ingrown toenail of right abdoulaye t with infection L60.0 [facility] [address] [id number] [address] [place] [phone] Oct, Influenza J11.1 and Cough R0 5 [place] [address] [place] [address] [id number] [address] [place] [phone] Aug, Ingrown right greater toenai l L60.0 [place] [address] [phone] Aug, Ingrowing nail with infectio n L60.0 [place] [address] [place] [address] [id number] [address] [place] [phone] December, Nail, ingrown L60.0 [facility] [address] [place] [address] [id number] [address] [place] [phone] 07 Sep, 2016 Influenza A J10.1 and Fever R50.9 [place] [address] [address] [id number] [address] [place] [phone] Jun, Nail, ingrown L60.0 and Paro nychia, left L03.012 [place] [address] [address] [id number] [address] [place] [phone] Jun, [facility] [address] [place] [address] [id number] [address] [place] [phone] Jun, Ingrowing left great toenail L60.0 and Ingrowing toenail with infection L60.0 [place] [address] [address] [id number] [address] [place] [phone] May, Ingrowing toenail with infec tion L60.0 [facility] [address] [place] [address] [id number] [address] [place] [phone] 14 Apr, 2016 Coughing R05 [facility] [address] [facility] [id number] [address] [place] [phone] Oct, Encounter for PPD test Z11.1 [facility] [address] [facility] [id number] [address] [place] [phone] 24 Sep, 2015 Encounter for PPD test Z11.1 [facility] [address] [facility] [id number] [address] [place] [phone] 06 Aug, 2015 Acute viral conjunctivitis o f both eyes B30.9 [facility] [address] [facility] [id number] [address] [place] [phone] Jun, Encounter for immunization Z 23 [facility] [address] [facility] [id number] [address] [place] [phone] 14 Nov, 2014 [facility] [address] [facility] [id number] [address] [place] [phone] Nov, [facility] [address] [id number] [address] [place] [phone] Oct, [facility] [address] [id number] [address] [place] [phone] Oct, [facility] [address] [facility] [id number] [address] [place] [phone] Oct, [facility] [address] [facility] [id number] [address] [place] [phone] Oct, [facility] [address] [id number] [address] [place] [phone] Oct, [facility] [address] [id number] [address] [place] [phone] Oct, [facility] [address] [facility] [id number] [address] [place] [phone] Oct, [facility] [address] [facility] [id number] [address] [place] [phone] Oct, [facility] [address] [id number] [address] [place] [address], [place] [address] Oct, [facility] [address] [id number] [address] [place] [address], [place] [address] Oct, [facility] [address] [id number] [address] [place] [address], [place] [address] Sep, [facility] [address] [id number] [address] [place] [address], [place] [address] Sep, [facility] [address] [id number] [address] [place] [address], [place] [address] Aug, [facility] [address] [id number] [address] [place] [address], [place] [address] Aug, [facility] [address] [id number] [address] [place] [address], [place] [address] Jul, [facility] [address] [id number] [address] [place] [address], [place] [address] Jul, [facility] [address] [id number] [address] [place] [address], [place] [address] Jul, [facility] [address] [id number] [address] [place] [address], [place] [address] Jul, [facility] [address] [id number] [address] [place] [address], [place] [address] Jun, [facility] [address] [id number] [address] [place] [address], [place] [address] Jun, [facility] [address] [id number] [address] [place] [address], [place] [address] May, [facility] [address] [id number] [address] [place] [address], [place] [address] May, [facility] [address] [id number] [address] [place] [address], [place] [address] May, [facility] [address] [id number] [address] [place], [place] [address] [address] May, [facility] [address] [id number] [address] [place] [phone] Oct, [facility] [address] [id number] [address] [place] [phone] Oct, [facility] [address] [id number] [address] [place] [phone] Oct, [facility] [address] [id number] [address] [place] [phone] Oct, [facility] [address] [id number] [address] [place] [phone] Sep, [facility] [address] [id number] [address] [place] [phone] Aug, [facility] [address] [id number] [address] [place] [phone] Aug, [facility] [address] [id number] [address] [place] [phone] Jun, [facility] [address] [id number] [address] [place] [phone] Jun, [facility] [address] [id number] [address] [place] [phone] May, [facility] [address] [id number] [address] [place] [phone] May, [facility] [address] [id number] [address] [place] [phone] Nov, IMMUNIZATIONS No Known Immunizations SOCIAL HISTORY Never Assessed REASON FOR VISIT PLAN OF CARE VITAL SIGNS Weight 160.6 lbs 2014-07-23 Temperature 98 degrees Fahrenheit 2014-07-23 Heart Rate 86 bpm 2014-07-23 Respiratory Rate 16 2014-07-23 Blood pressure systolic 110 mmHg 2014-07-23 Blood pressure diastolic 78 mmHg 2014-07-23 MEDICATIONS Unknown Medications RESULTS No Results PROCEDURES Procedure Date Ordered Result Body Site REMOVAL OF NAIL BED Jul 23, 2014 INSTRUCTIONS MEDICATIONS ADMINISTERED No Known Medications MEDICAL (GENERAL) HISTORY Type Description Date Medical History autism Medical History depression Medical History anxiety Surgical History No Surgical history information
--- OUTSIDE RECORDS SUMMARY | 2020-02-18 22:33 | XMS REPORT ---
Author Author Tomasa Albrecht Doctor Organization [facility] Address Unknown Phone Unavailable Care Team Providers Care Death Surveys Coder Name Role Phone Migration, Doctor Unavailable Unavailable PROBLEMS Type Condition ICD9-CM Code ISD21-FA Code Onset Dates Condition S tatus SNOMED Code Problem Generalized anxiety disorder F41.1 A ctive 94441583 Problem Cerebellar tremor G25.2 Active 30 288392 ALLERGIES No Information ENCOUNTERS Encounter Location Date Diagnosis [place] [address] [address] Nov, Generalized anxiety disorder F41.1 and Cerebellar tremor G25.2 [place] [address] [address] Oct, Generalized anxiety disorder F41.1 and Cerebellar tremor G25.2 [facility] [address] [place] [id number] [address] [place] [address] Sep, [facility] [address] [place] [id number] [address] [place] [address] Aug, Generalized anxiety disorder F41.1 [facility] [address] [place] [id number] [address] [place] [address] Jun, Ingrown nail of great toe of right foot L60.0 [facility] [id number] [place] [address] Apr, Ingrowing nail with infectio n L60.0 [facility] [address] [place] [id number] [address] [place] [address] Mar, Ingrown toenail of right abdoulaye t with infection L60.0 [facility] [address] [place] [id number] [address] [place] [address] Oct, Influenza J11.1 and Cough R0 5 [facility] [address] [facility] [id number] [address] [place] [address] Aug, Ingrown right greater toenai l L60.0 [facility] [address] [facility] [id number] [address] [place] [address] Aug, Ingrowing nail with infectio n L60.0 [facility] [address] [place] [id number] [address] [place] [address] December, Nail, ingrown L60.0 [facility] [address] [place] [id number] [address] [place] [address] 07 Sep, 2016 Influenza A J10.1 and Fever R50.9 [place] [address] [place] [id number] [address] [place] [address] Jun, Nail, ingrown L60.0 and Paro nychia, left L03.012 [place] [address] [place] [id number] [address] [place] [address] Jun, [facility] [address] [address] Jun, Ingrowing left great toenail L60.0 and Ingrowing toenail with infection L60.0 [facility] [address] [place] [id number] [address] [place] [address] May, Ingrowing toenail with infec tion L60.0 [facility] [address] [place] [id number] [address] [place] [address] 14 Apr, 2016 Coughing R05 [place] [address] [address] Oct, Encounter for PPD test Z11.1 [facility] [address] [place] [id number] [address] [place] [address] 24 Sep, 2015 Encounter for PPD test Z11.1 [facility] [address] [address] Aug, Acute viral conjunctivitis o f both eyes B30.9 [facility] [address] [id number] [address] [place] [address] 18 Jun, 2015 Encounter for immunization Z 23 [facility] [address] [id number] [address] [place] [address] 14 Nov, 2014 [facility] [address] [id number] [address] [place] [address] Nov, [facility] [address] [id number] [address] [place] [address] Oct, [facility] [address] [id number] [address] [place] [address] Oct, [facility] [address] [id number] [address] [place] [address] Oct, [facility] [address] [id number] [address] [place] [address] Oct, [facility] [address] [id number] [address] [place] [address] Oct, [facility] [address] [id number] [address] [place] [address] Oct, [facility] [address] [id number] [address] [place] [address] Oct, [facility] [address] [id number] [address] [place] [address] Oct, [facility] [address] [id number] [address] [place] [address] Oct, [facility] [address] [id number] [address] [place] [address] Oct, [facility] [address] [id number] [address] [place] [address] Sep, [facility] [address] [id number] [address] [place] [address] Sep, [facility] [address] [id number] [address] [place] [address], [place] [address] Aug, [facility] [address] [id number] [address] [place] [address], [place] [address] Aug, [facility] [address] [id number] [address] [place] [address], [place] [address] Jul, [facility] [address] [id number] [address] [place] [address], [place] [address] Jul, [facility] [address] [id number] [address] [place] [address], [place] [address] Jul, [facility] [address] [id number] [address] [place] [address], [place] [address] Jul, [facility] [address] [id number] [address] [place] [address], [place] [address] Jun, [facility] [address] [id number] [address] [place] [address], [place] [address] Jun, [facility] [address] [id number] [address] [place] [address], [place] [address] May, [facility] [address] [id number] [address] [place] [address], [place] [address] May, [facility] [address] [id number] [address] [place] [address], [place] [address] May, [facility] [address] [id number] [address] [place] [address], [place] [address] May, [facility] [address] [id number] [address] [place] [address], [place] [address] Oct, [facility] [address] [id number] [address] [place] [address], [place] [address] Oct, [facility] [address] [id number] [address] [place] [address], [place] [address] Oct, [facility] [address] [id number] [address] [place] [address] Oct, [facility] [address] [id number] [address] [place] [address] Sep, [facility] [address] [id number] [address] [place] [address] Aug, [facility] [address] [id number] [address] [place] [address] Aug, [facility] [address] [id number] [address] [place] [address] Jun, [facility] [address] [id number] [address] [place] [address] Jun, [facility] [address] [id number] [address] [place] [address] May, [facility] [address] [id number] [address] [place] [address] May, [facility] [address] [id number] [address] [place] [address] Nov, IMMUNIZATIONS No Known Immunizations SOCIAL HISTORY Never Assessed REASON FOR VISIT EMR-[facility] PLAN OF CARE VITAL SIGNS MEDICATIONS Unknown Medications RESULTS No Results PROCEDURES No Known procedures INSTRUCTIONS MEDICATIONS ADMINISTERED No Known Medications MEDICAL (GENERAL) HISTORY Type Description Date Medical History autism Medical History depression Medical History anxiety Surgical History No Surgical history information
--- OUTSIDE RECORDS SUMMARY | 2020-02-18 22:33 | XMS REPORT ---
Author Author Ambrocio Annashoaib Doctor Organization [facility] Address Unknown Phone Unavailable Care Team Providers Care Neonatal Nurse Practitioner Name Role Phone Migration, Doctor Unavailable Unavailable PROBLEMS Type Condition ICD9-CM Code JRT81-OL Code Onset Dates Condition S tatus SNOMED Code Problem Generalized anxiety disorder F41.1 A ctive 94705213 Problem Cerebellar tremor G25.2 Active 30 [id number] ALLERGIES No Information ENCOUNTERS Encounter Location Date Diagnosis [place] [address] [address] Jun, [place] [address] [address] May, [place] [address] [address] Mar, [facility] [address] [place] [id number] [address] [place] [address] Feb, Ingrowing right great toenai l L60.0 and Cellulitis of toe of right foot L03.031 [place] [address] [address] Nov, Generalized anxiety disorder F41.1 and C erebellar tremor G25.2 [place] [address] [address] Oct, Generalized anxiety disorder F41.1 and C erebellar tremor G25.2 [place] [address] [address] Sep, [place] [address] [address] Aug, Generalized anxiety disorder F41.1 [facility] [address] [place] [id number] [address] [place] [address] Jun, Ingrown nail of great toe of right foot L60.0 [facility] [address] [address] Apr, Ingrowing nail with infection L60.0 [facility] [address] [place] [id number] [address] [place] [address] Mar, Ingrown toenail of right abdoulaye t with infection L60.0 [facility] N [address] [address] Oct, Influenza J11.1 and Cough R0 5 [place] [address] [address] Aug, Ingrown right greater toenail L60.0 [place] [address] [address] Aug, Ingrowing nail with infection L60.0 [place] [address] [address] December, Nail, ingrown L60.0 [facility] [place] [address] [address] Sep, Influenza A J10.1 and Fever R50.9 [place] [address] [address] Jun, Nail, ingrown L60.0 and Paronychia, left L03.012 [place] [address] [address] Jun, [facility] [address] [place] [id number] [address] [place] [address] Jun, Ingrowing left great toenail L60.0 and Ingrowing toenail with infection L60.0 [place] [address] [address] May, Ingrowing toenail with infection L60.0 [facility] [address] [place] [address] [address] [address] 14 Apr, 2016 Coughing R05 [facility] [address] [place] [id number] [place] [address] 21 Oct, 2015 Encounter for PPD test Z11.1 [facility] [address] [id number] [place] [address] 24 Sep, 2015 Encounter for PPD test Z11.1 [facility] [address] [facility] [id number] [place] [address] Aug, Acute viral conjunctivitis o f both eyes B30.9 [facility] [address] [address] Jun, Encounter for immunization Z23 [facility] [address] [address] 14 Nov, 2014 [facility] [address] [address] Nov, [facility] [address] [place] [id number] [place] [address] Oct, [facility] [address] [address] Oct, [facility] [address] [address] Oct, [facility] [address] [address] Oct, [facility] [address] [address] Oct, [facility] [address] [address] Oct, [facility] [address] [address] Oct, [facility] [address] [place] [id number] [place] [address] Oct, [facility] [address] [address] Oct, [facility] [address] [id number] [place] [address] Oct, [facility] [address] [id number] [place] [address] Sep, [facility] [address] [id number] [place] [address] Sep, [facility] [address] [id number] [place] [address] Aug, [facility] [address] [id number] [place] [address] Aug, [facility] [address] [id number] [place] [address] Jul, [facility] [address] [id number] [place] [address] Jul, [facility] [address] [id number] [place] [address] Jul, [facility] [address] [id number] [place] [address] Jul, [facility] [address] [id number] [place] [address] Jun, [facility] [address] [id number] [place] [address] Jun, [facility] [address] [id number] [place] [address] May, [facility] [address] [id number] [place] [address] May, [facility] [address] [id number] [place] [address] May, [facility] [address] [id number] [place] [address] May, [facility] [address] [id number] [place] [address] Oct, [facility] [address] [id number] [place] [address] Oct, [facility] [address] [id number] [place] [address] Oct, [facility] [address] [id number] [place] [address] Oct, [facility] [address] [id number] [place] [address] Sep, [facility] [address] [place] [id number] [place] [address] Aug, [facility] [address] [place] [id number] [place] [address] Aug, [facility] [address] [place] [id number] [place] [address] Jun, [facility] [address] [place] [id number] [place] [address] Jun, [facility] [address] [place] [id number] [place] [address] May, [facility] [address] [place] [id number] [place] [address] May, [facility] [address] [place] [id number] [place] [address] Nov, IMMUNIZATIONS No Known Immunizations SOCIAL HISTORY Never Assessed REASON FOR VISIT PLAN OF CARE VITAL SIGNS Height 69.8 in 2013-11-15 Weight 149.19 lbs 2013-11-15 Temperature 96.6 degrees Fahrenheit 2013-11-15 Heart Rate 69 bpm 2013-11-15 Respiratory Rate 2013-11-15 Blood pressure systolic 100 mmHg 2013-11-15 Blood pressure diastolic 72 mmHg 2013-11-15 MEDICATIONS Unknown Medications RESULTS No Results PROCEDURES No Known procedures INSTRUCTIONS MEDICATIONS ADMINISTERED No Known Medications MEDICAL (GENERAL) HISTORY Type Description Date Medical History autism Medical History depression Medical History anxiety Surgical History No Surgical history information
--- OUTSIDE RECORDS SUMMARY | 2020-02-18 22:33 | XMS REPORT ---
Author Author Tomasa LAMAR Organization [facility] [place] Address Unknown Care Team Providers Care Activities Leader Name Role Phone BRITTA LAMAR Unavailable PROBLEMS Type Condition ICD9-CM Code [id number] Code Onset Dates Condition S tatus SNOMED Code Problem Generalized anxiety disorder F41.1 A ctive 61897529 Problem Cerebellar tremor G25.2 Active 30 233220 ALLERGIES No Information ENCOUNTERS Encounter Location Date Diagnosis [facility] [place] [address] [id number] [address] [place] [address] Mar, [facility] [address] [id number] [address] [place] [address] Feb, Ingrowing right great toenai l L60.0 and Cellulitis of toe of right foot L03.031 [facility] [place] [address] [id number] [address] [place] [address] Nov, Generalized anxiety disorder F41.1 and Cerebellar tremor G25.2 [facility] [place] [address] [id number] [address] [place] [address] Oct, Generalized anxiety disorder F41.1 and Cerebellar tremor G25.2 [facility] [place] [address] [id number] [address] [place] [phone] Sep, [facility] [place] [address] [id number] [address] [place] [address] Aug, Generalized anxiety disorder F41.1 [facility] [address] [id number] [address] [place] [address] Jun, Ingrown nail of great toe of right foot L60.0 [facility] [place] [id number] [address] [place] [phone] Apr, Ingrowing nail with infectio n L60.0 [facility] [address] [facility] [id number] [address] [place] [phone] Mar, Ingrown toenail of right abdoulaye t with infection L60.0 [facility] [address] [facility] [id number] [address] [place] [phone] Oct, Influenza J11.1 and Cough R0 5 [place] [address] [address] [facility] [id number] [address] [place] [address] Aug, Ingrown right greater toenai l L60.0 [place] [id number] [place] [phone] Aug, Ingrowing nail with infectio n L60.0 [place] [address] [id number] [address] [place] [phone] December, Nail, ingrown L60.0 [facility] [address] [id number] [address] [place] [address] Sep, Influenza A J10.1 and Fever R50.9 [place] [address] [id number] [address] [place] [address] Jun, Nail, ingrown L60.0 and Paro nychia, left L03.012 [place] [address] [place] [id number] [address] [place] [phone] Jun, [facility] [id number] [address] [place] [phone] Jun, Ingrowing left great toenail L60.0 and Ingrowing toenail with infection L60.0 [place] [address] [address] [facility] [id number] [address] [place] [phone] May, Ingrowing toenail with infec tion L60.0 [facility] [id number] [address] [place] [phone] 14 Apr, 2016 Coughing R05 [facility] [place] [address] [id number] [address] [place] [phone] Oct, Encounter for PPD test Z11.1 [facility] [place] [address] [id number] [address] [place] [phone] 24 Sep, 2015 Encounter for PPD test Z11.1 [facility] [address] [facility] [id number] [address] [place] [phone] Aug, Acute viral conjunctivitis o f both eyes B30.9 [facility] [place] [address] [id number] [address] [place] [phone] Jun, Encounter for immunization Z 23 [facility] [place] [address] [id number] [address] [place] [phone] Nov, [facility] [place] [address] [id number] [address] [place] [phone] Nov, [facility] [place] [address] [id number] [address] [place] [phone] Oct, [facility] [place] [address] [id number] [address] [place] [phone] Oct, [facility] [place] [address] [id number] [address] [place] [phone] Oct, [facility] [place] [address] [id number] [address] [place] [phone] Oct, [facility] [place] [address] [id number] [address] [place] [phone] Oct, [facility] [place] [address] [id number] [address] [place] [phone] Oct, [facility] [place] [address] [id number] [address] [place] [phone] Oct, [facility] [place] [address] [id number] [address] [place] [phone] Oct, [facility] [place] [address] [id number] [address] [place] [address], [place] [address] Oct, [facility] [address] [id number] [address] [place] [address], [place] [address] Oct, [facility] [address] [id number] [address] [place] [address], [place] [address] Sep, [facility] [address] [id number] [address] [place] [address], [place] [address] Sep, [facility] [address] [id number] [address] [place] [address], [place] [address] Aug, [facility] [address] [id number] [address] [place] [address], [place] [address] Aug, [facility] [address] [id number] [address] [place] [address], [place] [address] Jul, [facility] [address] [id number] [address] [place] [address], [place] [address] Jul, [facility] [address] [id number] [address] [place] [address], [place] [address] Jul, [facility] [address] [id number] [address] [place] [address], [place] [address] Jul, [facility] [address] [id number] [address] [place] [address], [place] [address] Jun, [facility] [address] [id number] [address] [place] [address], [place] [address] Jun, [facility] [address] [id number] [address] [place] [address], [place] [address] May, [facility] [address] [id number] [address] [place] [address], [place] [address] May, [facility] [address] [id number] [address] [place] [address], [place] [address] May, [facility] [address] [id number] [address] [place] [address], [place] [address] May, [facility] [place] [address] [id number] [address] [place] [phone] Oct, [facility] [place] [address] [id number] [address] [place] [phone] Oct, [facility] [place] [address] [id number] [address] [place] [phone] Oct, [facility] [place] [address] [id number] [address] [place] [phone] Oct, [facility] [place] [address] [id number] [address] [place] [phone] Sep, [facility] [place] [address] [id number] [address] [place] [phone] Aug, [facility] [place] [address] [id number] [address] [place] [address] Aug, [facility] [place] [address] [id number] [address] [place] [phone] Jun, [facility] [place] [address] [id number] [address] [place] [address] Jun, [facility] [place] [address] [id number] [address] [place] [phone] May, [facility] [place] [address] [id number] [address] [place] [address] May, [facility] [place] [address] [id number] [address] [place] [address] Nov, IMMUNIZATIONS No Known Immunizations SOCIAL HISTORY Never Assessed REASON FOR VISIT PLAN OF CARE VITAL SIGNS MEDICATIONS Unknown Medications RESULTS No Results PROCEDURES Procedure Date Ordered Result Body Site PSYCH DIAGNOSTIC EVALUATION Sep 27, 2014 INSTRUCTIONS MEDICATIONS ADMINISTERED No Known Medications MEDICAL (GENERAL) HISTORY Type Description Date Medical History autism Medical History depression Medical History anxiety Surgical History No Surgical history information
--- OUTSIDE RECORDS SUMMARY | 2020-02-18 22:33 | XMS REPORT ---
Author Author Tomasa Renteria Organization [facility] Address [address] [place] [address] Care Team Providers Care Electronic Service Technician Name Role Phone Myra ROSEY Unavailable PROBLEMS Type Condition ICD9-CM Code [id number] Code Onset Dates Condition S tatus SNOMED Code Problem Generalized anxiety disorder F41.1 A ctive [id number] Problem Cerebellar tremor G25.2 Active 30 846024 ALLERGIES No Information ENCOUNTERS Encounter Location Date Diagnosis [facility] [address] [phone] Nov, Generalized anxiety disorder F41.1 and Cerebellar tremor G25.2 [facility] [address] [address] Oct, Generalized anxiety disorder F41.1 and Cerebellar tremor G25.2 [facility] [address] [address] Sep, [facility] [address] [id number] [address] [place] [phone] Aug, Generalized anxiety disorder F41.1 [facility] [address] [id number] [address] [place] [phone] Jun, Ingrown nail of great toe of right foot L60.0 [facility] [address] [id number] [address] [place] [phone] Apr, Ingrowing nail with infectio n L60.0 [facility] [address] [id number] [address] [place] [phone] Mar, Ingrown toenail of right abdoulaye t with infection L60.0 [facility] [id number] [address] [place] [phone] Oct, Influenza J11.1 and Cough R0 5 [address] [address] Aug, Ingrown right greater toenai l L60.0 [facility] [address] [address] Aug, Ingrowing nail with infectio n L60.0 [place] [address] [address] December, Nail, ingrown L60.0 [facility] [address] [address] Sep, Influenza A J10.1 and Fever R50.9 [place] [address] [address] Jun, Nail, ingrown L60.0 and Paro nychia, left L03.012 [place] [address] [address] Jun, [facility] [address] [address] Jun, Ingrowing left great toenail L60.0 and Ingrowing toenail with infection L60.0 [place] [address] [address] May, Ingrowing toenail with infec tion L60.0 [facility] [address] [address] Apr, Coughing R05 [place] [address] [address] Oct, Encounter for PPD test Z11.1 [place] [address] [id number] 24 Sep, 2015 Encounter for PPD test Z11.1 [facility] [address] [id number] [address] [place] [phone] Aug, Acute viral conjunctivitis o f both eyes B30.9 [facility] [address] [id number] [address] [place] [phone] 18 Jun, 2015 Encounter for immunization Z 23 [facility] [address] [id number] [address] [place] [id number] 14 Nov, 2014 [facility] [address] [id number] [address] [place] [phone] Nov, [facility] [address] [id number] [address] [place] [phone] Oct, [facility] [address] [id number] [address] [place] [phone] Oct, [facility] [address] [id number] [address] [place] [phone] Oct, [facility] [address] [id number] [address] [place] [phone] Oct, [facility] [address] [id number] [address] [place] [phone] Oct, [facility] [address] [id number] [address] [place] [phone] Oct, [facility] [address] [id number] [address] [place] [phone] Oct, [facility] [address] [id number] [address] [place] [phone] Oct, [facility] [address] [id number] [address] [place] [phone] Oct, [facility] [address] [id number] [address] [place] [phone] Oct, [facility] [address] [id number] [address] [place] [phone] Sep, [facility] [address] [id number] [address] [place] [address], [place] [address] Sep, [facility] [address] [id number] [address] [place] [address], [place] [address] Aug, [facility] [address] [id number] [address] [place] [address], [place] [address] Aug, [facility] [address] [id number] [address] [place] [address], [place] [address] Jul, [facility] [address] [id number] [address] [place] [address], [place] [address] Jul, [facility] [address] [id number] [address] [place] [address], [place] [address] Jul, [facility] [address] [id number] [address] [place] [address], [place] [address] Jul, [facility] [address] [id number] [address] [place] [address], [place] [address] Jun, [facility] [address] [id number] [address] [place] [address], [place] [address] Jun, [facility] [address] [id number] [address] [place] [address], [place] [address] May, [facility] [address] [id number] [address] [place] [address], [place] [address] May, [facility] [address] [id number] [address] [place] [phone] May, [facility] [address] [id number] [address] [place] [address], [place] [address] May, [facility] [address] [id number] [address] [place] [address], [place] [address] Oct, [facility] [address] [id number] [address] [place] [address], [place] [address] Oct, [facility] [address] [id number] [address] [place] [id number] Oct, [facility] [address] [id number] [address] [place] [phone] Oct, [facility] [address] [id number] [address] [place] [phone] Sep, [facility] [address] [id number] [address] [place] [phone] Aug, [facility] [address] [id number] [address] [place] [phone] Aug, [facility] [address] [id number] [address] [place] [phone] Jun, [facility] [address] [id number] [address] [place] [phone] Jun, [facility] [address] [id number] [address] [place] [phone] May, [facility] [address] [id number] [address] [place] [phone] May, [facility] [address] [id number] [address] [place] [phone] Nov, IMMUNIZATIONS No Known Immunizations SOCIAL HISTORY Never Assessed REASON FOR VISIT PLAN OF CARE VITAL SIGNS MEDICATIONS Unknown Medications RESULTS No Results PROCEDURES No Known procedures INSTRUCTIONS MEDICATIONS ADMINISTERED No Known Medications MEDICAL (GENERAL) HISTORY Type Description Date Medical History autism Medical History depression Medical History anxiety Surgical History No Surgical history information
--- OUTSIDE RECORDS SUMMARY | 2020-02-18 22:33 | XMS REPORT ---
Author Author Tomasa Renteria Organization [facility] Address [address] [place] [address] Care Team Providers Care Urology Surgeon Name Role Phone Myra ROSEY Unavailable PROBLEMS Type Condition ICD9-CM Code [id number] Code Onset Dates Condition S tatus SNOMED Code Problem Generalized anxiety disorder F41.1 A ctive 35440452 Problem Cerebellar tremor G25.2 Active 30 613307 ALLERGIES No Information ENCOUNTERS Encounter Location Date Diagnosis [facility] [address] [address] Nov, Generalized anxiety disorder F41.1 and Cerebellar tremor G25.2 [facility] [address] [address] Oct, Generalized anxiety disorder F41.1 and Cerebellar tremor G25.2 [facility] [address] [address] Sep, [facility] [address] [place] [id number] [place] [address] Aug, Generalized anxiety disorder F41.1 [facility] [address] [id number] [address] [place] [phone] Jun, Ingrown nail of great toe of right foot L60.0 [facility] [address] [id number] [address] [place] [address] Apr, Ingrowing nail with infectio n L60.0 [facility] [address] [id number] [address] [place] [address] Mar, Ingrown toenail of right abdoulaye t with infection L60.0 [facility] [address] [id number] [address] [place] [address] Oct, Influenza J11.1 and Cough R0 5 [place] [address] [address] Aug, Ingrown right greater toenai l L60.0 [facility] [address] [address] Aug, Ingrowing nail with infectio n L60.0 [place] [address] [address] December, Nail, ingrown L60.0 [facility] [address] [address] Sep, Influenza A J10.1 and Fever R50.9 [place] [address] [address] Jun, Nail, ingrown L60.0 and Paro nychia, left L03.012 [place] [address] [address] Jun, [facility] [address] [address] Jun, Ingrowing left great toenail L60.0 and Ingrowing toenail with infection L60.0 [place] [address] [address] May, Ingrowing toenail with infec tion L60.0 [facility] [address] [address] Apr, Coughing R05 [place] [address] [address] Oct, Encounter for PPD test Z11.1 [place] [address] [address] 24 Sep, 2015 Encounter for PPD test Z11.1 [facility] [address] [id number] [address] [place] [address] Aug, Acute viral conjunctivitis o f both eyes B30.9 [facility] [address] [id number] [address] [place] [address] 18 Jun, 2015 Encounter for immunization Z 23 [facility] [address] [id number] [address] [place] [address] 14 Nov, 2014 [facility] [address] [id number] [address] [place] [address] Nov, [facility] [address] [id number] [address] [place] [address] Oct, [facility] [address] [id number] [address] [place] [address] Oct, [facility] [address] [id number] [address] [place] [address] Oct, [facility] [address] [id number] [address] [place] [phone] Oct, [facility] [address] [id number] [address] [place] [address] Oct, [facility] [address] [id number] [address] [place] [address] Oct, [facility] [address] [id number] [address] [place] [address] Oct, [facility] [address] [id number] [address] [place] [phone] Oct, [facility] [address] [id number] [address] [place] [phone] Oct, [facility] [address] [id number] [address] [place] [address] Oct, [facility] [address] [id number] [address] [place] [address] Sep, [facility] [address] [id number] [address] [place] [address], [place] [address] Sep, [facility] [address] [id number] [address] [place] [address], [place] [address] Aug, [facility] [address] [id number] [address] [place] [address], [place] [address] Aug, [facility] [address] [id number] [address] [place] [address], [place] [address] Jul, [facility] [address] [id number] [address] [place] [address], [place] [address] Jul, [facility] [address] [id number] [address] [place] [address], [place] [address] Jul, [facility] [address] [id number] [address] [place] [address], [place] [address] Jul, [facility] [address] [id number] [address] [place] [address], [place] [address] Jun, [facility] [address] [id number] [address] [place] [address], [place] [address] Jun, [facility] [address] [id number] [address] [place] [address], [place] [address] May, [facility] [address] [id number] [address] [place] [address], [place] [address] May, [facility] [address] [id number] [address] [place] [address] May, [facility] [address] [id number] [address] [place] [address], [place] [address] May, [facility] [address] [id number] [address] [place] [address], [place] [address] Oct, [facility] [address] [id number] [address] [place] [address], [place] [address] Oct, [facility] [address] [id number] [address] [place] [address] Oct, [facility] [address] [id number] [address] [place] [address] Oct, [facility] [address] [id number] [address] [place] [phone] Sep, [facility] [address] [id number] [address] [place] [phone] Aug, [facility] [address] [id number] [address] [place] [address] Aug, [facility] [address] [id number] [address] [place] [address] Jun, [facility] [address] [id number] [address] [place] [address] Jun, [facility] [address] [id number] [address] [place] [address] May, [facility] [address] [id number] [address] [place] [phone] May, [facility] [address] [id number] [address] [place] [address] Nov, IMMUNIZATIONS No Known Immunizations SOCIAL HISTORY Never Assessed REASON FOR VISIT PLAN OF CARE VITAL SIGNS MEDICATIONS Unknown Medications RESULTS No Results PROCEDURES No Known procedures INSTRUCTIONS MEDICATIONS ADMINISTERED No Known Medications MEDICAL (GENERAL) HISTORY Type Description Date Medical History autism Medical History depression Medical History anxiety Surgical History No Surgical history information
--- OUTSIDE RECORDS SUMMARY | 2020-02-18 22:33 | XMS REPORT ---
Author Author Tomasa Albrecht Doctor Organization [facility] Address Unknown Phone Unavailable Care Team Providers Care Brokerage Branch Manager Name Role Phone Migration, Doctor Unavailable Unavailable PROBLEMS Type Condition ICD9-CM Code [id number] Code Onset Dates Condition S tatus SNOMED Code Problem Generalized anxiety disorder F41.1 A ctive 50418925 Problem Cerebellar tremor G25.2 Active 30 758452 ALLERGIES No Information ENCOUNTERS Encounter Location Date Diagnosis [place] [address] [address] Nov, Generalized anxiety disorder F41.1 and Cerebellar tremor G25.2 [place] [address] [address] Oct, Generalized anxiety disorder F41.1 and Cerebellar tremor G25.2 [facility] [address] [id number] [address] [place] [address] Sep, [facility] [address] [id number] [address] [place] [address] Aug, Generalized anxiety disorder F41.1 [facility] [address] [place] [address] [id number] [address] [place] [phone] Jun, Ingrown nail of great toe of right foot L60.0 [facility] [id number] [place] [address] Apr, Ingrowing nail with infectio n L60.0 [facility] [address] [place] [id number] [address] [place] [phone] Mar, Ingrown toenail of right abdoulaye t with infection L60.0 [facility] [address] [place] [id number] [address] [place] [address] Oct, Influenza J11.1 and Cough R0 5 [facility] [address] [facility] [id number] [address] [place] [address] Aug, Ingrown right greater toenai l L60.0 [facility] [address] [facility] [id number] [address] [place] [phone] Aug, Ingrowing nail with infectio n L60.0 [facility] [address] [place] [id number] [address] [place] [address] December, Nail, ingrown L60.0 [facility] [address] [id number] [address] [place] [phone] 07 Sep, 2016 Influenza A J10.1 and Fever R50.9 [place] [address] [place] [id number] [address] [place] [address] Jun, Nail, ingrown L60.0 and Paro nychia, left L03.012 [place] [address] [place] [id number] [address] [place] [phone] Jun, [facility] [address] [address] Jun, Ingrowing left great toenail L60.0 and Ingrowing toenail with infection L60.0 [facility] [address] [id number] [address] [place] [address] May, Ingrowing toenail with infec tion L60.0 [facility] [address] [id number] [address] [place] [phone] 14 Apr, 2016 Coughing R05 [place] [address] [address] Oct, Encounter for PPD test Z11.1 [facility] [address] [place] [id number] [address] [place] [address] 24 Sep, 2015 Encounter for PPD test Z11.1 [facility] [address] [address] Aug, Acute viral conjunctivitis o f both eyes B30.9 [facility] [address] [id number] [address] [place] [id number] 18 Jun, 2015 Encounter for immunization Z 23 [facility] [address] [id number] [address] [place] [phone] 14 Nov, 2014 [facility] [address] [id number] [address] [place] [phone] Nov, [facility] [address] [id number] [address] [place] [phone] Oct, [facility] [address] [id number] [address] [place] [phone] Oct, [facility] [address] [id number] [address] [place] [phone] Oct, [facility] [address] [id number] [address] [place] [phone] Oct, [facility] [address] [id number] [address] [place] [phone] Oct, [facility] [address] [id number] [address] [place] [phone] Oct, [facility] [address] [id number] [address] [place] [phone] Oct, [facility] [address] [id number] [address] [place] [phone] Oct, [facility] [address] [id number] [address] [place] [phone] Oct, [facility] [address] [id number] [address] [place] [phone] Oct, [facility] [address] [id number] [address] [place] [phone] Sep, [facility] [address] [id number] [address] [place] [phone] Sep, [facility] [address] [id number] [address] [place] [address], [place] [address] Aug, [facility] [address] [id number] [address] [place] [address], [place] [address] Aug, [facility] [address] [id number] [address] [place] [address], [place] [address] Jul, [facility] [address] [id number] [address] [place] [address], [place] [address] Jul, [facility] [address] [id number] [address] [place] [address], [place] [address] Jul, [facility] [address] [id number] [address] [place] [address], [place] [address] Jul, [facility] [address] [id number] [address] [place] [address], [place] [address] Jun, [facility] [address] [id number] [address] [place] [address], [place] [address] Jun, [facility] [address] [id number] [address] [place] [address], [place] [address] May, [facility] [address] [id number] [address] [place] [address], [place] [address] May, [facility] [address] [id number] [address] [place] [address], [place] [address] May, [facility] [address] [id number] [address] [place] [address], [place] [address] May, [facility] [address] [id number] [address] [place] [address], [place] [address] Oct, [facility] [address] [id number] [address] [place] [address], [place] [address] Oct, [facility] [address] [id number] [address] [place] [address], [place] [address] Oct, [facility] [address] [id number] [address] [place] [phone] Oct, [facility] [address] [id number] [address] [place] [phone] Sep, [facility] [address] [id number] [address] [place] [phone] Aug, [facility] [address] [id number] [address] [place] [phone] Aug, [facility] [address] [id number] [address] [place] [phone] Jun, [facility] [address] [facility] [id number] [address] [place] [phone] Jun, [facility] [address] [id number] [address] [place] [phone] May, [facility] [address] [facility] [id number] [address] [place] [phone] May, [facility] [address] [id number] [address] [place] [phone] Nov, IMMUNIZATIONS No Known Immunizations SOCIAL HISTORY Never Assessed REASON FOR VISIT PLAN OF CARE VITAL SIGNS MEDICATIONS Unknown Medications RESULTS No Results PROCEDURES No Known procedures INSTRUCTIONS MEDICATIONS ADMINISTERED No Known Medications MEDICAL (GENERAL) HISTORY Type Description Date Medical History autism Medical History depression Medical History anxiety Surgical History No Surgical history information
--- OUTSIDE RECORDS SUMMARY | 2020-02-18 22:33 | XMS REPORT ---
Author Author Tomasa Renteria Organization [facility] Address [address] [place] [address] Care Team Providers Care Patient Support Assistant Name Role Phone Myra ROSEY Unavailable PROBLEMS Type Condition ICD9-CM Code [id number] Code Onset Dates Condition S tatus SNOMED Code Problem Generalized anxiety disorder F41.1 A ctive 82210268 Problem Cerebellar tremor G25.2 Active 30 [id number] ALLERGIES No Information ENCOUNTERS Encounter Location Date Diagnosis [facility] [address] [address] Nov, Generalized anxiety disorder F41.1 and Cerebellar tremor G25.2 [facility] [place] [address] [address] Oct, Generalized anxiety disorder F41.1 and Cerebellar tremor G25.2 [facility] [place] [address] [address] Sep, [facility] [address] [place] [id number] [place] [address] Aug, Generalized anxiety disorder F41.1 [facility] [address] [place] [id number] [address] [place] [address] Jun, Ingrown nail of great toe of right foot L60.0 [facility] [address] [place] [id number] [address] [place] [address] Apr, Ingrowing nail with infectio n L60.0 [facility] [address] [place] [id number] [address] [place] [address] Mar, Ingrown toenail of right abdoulaye t with infection L60.0 [facility] [address] [place] [id number] [address] [place] [address] Oct, Influenza J11.1 and Cough R0 5 [place] [address] [address] Aug, Ingrown right greater toenai l L60.0 [facility] [address] [address] Aug, Ingrowing nail with infectio n L60.0 [place] [address] [address] December, Nail, ingrown L60.0 [facility] [address] [address] Sep, Influenza A J10.1 and Fever R50.9 [place] [address] [address] Jun, Nail, ingrown L60.0 and Paro nychia, left L03.012 [place] [address] [address] Jun, [facility] [address] [address] Jun, Ingrowing left great toenail L60.0 and Ingrowing toenail with infection L60.0 [place] [address] [address] May, Ingrowing toenail with infec tion L60.0 [facility] [address] [address] Apr, Coughing R05 [place] [address] [address] Oct, Encounter for PPD test Z11.1 [place] [address] [address] 24 Sep, 2015 Encounter for PPD test Z11.1 [facility] [address] [id number] [address] [place] [address] Aug, Acute viral conjunctivitis o f both eyes B30.9 [facility] [address] [id number] [address] [place] [id number] 18 Jun, 2015 Encounter for immunization Z 23 [facility] [address] [id number] [address] [place] [id number] 14 Nov, 2014 [facility] [place] [address] [id number] [address] [place] [phone] Nov, [facility] [place] [address] [id number] [address] [place] [address] Oct, [facility] [address] [id number] [address] [place] [address] Oct, [facility] [address] [id number] [address] [place] [address] Oct, [facility] [address] [id number] [address] [place] [address] Oct, [facility] [address] [id number] [address] [place] [address] Oct, [facility] [address] [id number] [address] [place] [address] Oct, [facility] [place] [address] [id number] [address] [place] [address] Oct, [facility] [place] [address] [id number] [address] [place] [address] Oct, [facility] [place] [address] [id number] [address] [place] [address] Oct, [facility] [place] [address] [id number] [address] [place] [address] Oct, [facility] [address] [id number] [address] [place] [address] Sep, [facility] [address] [id number] [address] [place] [address], [place] [address] Sep, [facility] [address] [id number] [address] [place] [address], [place] [address] Aug, [facility] [address] [id number] [address] [place] [address], [place] [address] Aug, [facility] [address] [id number] [address] [place] [address], [place] [address] Jul, [facility] [address] [id number] [address] [place] [address], [place] [address] Jul, [facility] [address] [id number] [address] [place] [address], [place] [address] Jul, [facility] [address] [id number] [address] [place] [address], [place] [address] Jul, [facility] [address] [id number] [address] [place] [address], [place] [address] Jun, [facility] [address] [id number] [address] [place] [address], [place] [address] Jun, [facility] [address] [id number] [address] [place] [address], [place] [address] May, [facility] [address] [id number] [address] [place] [address], [place] [address] May, [facility] [address] [id number] [address] [place] [address] May, [facility] [address] [id number] [address] [place] [address], [place] [address] May, [facility] [address] [id number] [address] [place] [address], [place] [address] Oct, [facility] [address] [id number] [address] [place] [address], [place] [address] Oct, [facility] [address] [id number] [address] [place] [address] Oct, [facility] [address] [id number] [address] [place] [address] Oct, [facility] [address] [id number] [address] [place] [address] Sep, [facility] [address] [id number] [address] [place] [address] Aug, [facility] [address] [id number] [address] [place] [address] Aug, [facility] [address] [id number] [address] [place] [address] Jun, [facility] [address] [id number] [address] [place] [address] Jun, [facility] [address] [id number] [address] [place] [address] May, [facility] [address] [id number] [address] [place] [address] May, [facility] [address] [id number] [address] [place] [address] Nov, IMMUNIZATIONS No Known Immunizations SOCIAL HISTORY Never Assessed REASON FOR VISIT PLAN OF CARE VITAL SIGNS MEDICATIONS Unknown Medications RESULTS No Results PROCEDURES Procedure Date Ordered Result Body Site PSYTX PT&/FAMILY 45 MINUTES Oct 17, 2014 INSTRUCTIONS MEDICATIONS ADMINISTERED No Known Medications MEDICAL (GENERAL) HISTORY Type Description Date Medical History autism Medical History depression Medical History anxiety Surgical History No Surgical history information
--- OUTSIDE RECORDS SUMMARY | 2020-02-18 22:33 | XMS REPORT ---
Author Author Tomasa TORRE Organization [facility] Address [address] [place] [address] Care Team Providers Care Socket Puller Name Role Phone ANTONINO TORRE Unavailable PROBLEMS Type Condition ICD9-CM Code [id number] Code Onset Dates Condition S tatus SNOMED Code Problem Generalized anxiety disorder F41.1 A ctive [id number] Problem Cerebellar tremor G25.2 Active 30 095390 ALLERGIES No Known Allergies ENCOUNTERS Encounter Location Date Diagnosis [place] [address] [address] Jun, [place] [address] [address] May, [place] [address] [address] Mar, [facility] [address] [facility] [id number] [address] [address] Feb, Ingrowing right great toenai l L60.0 and Cellulitis of toe of right foot L03.031 [place] [address] [address] Nov, Generalized anxiety disorder F41.1 and C erebellar tremor G25.2 [place] [address] [address] Oct, Generalized anxiety disorder F41.1 and C erebellar tremor G25.2 [place] [address] [address] Sep, [facility] [address] [address] Aug, Generalized anxiety disorder F41.1 [facility] [address] [place] [id number] [address] [place] [address] Jun, Ingrown nail of great toe of right foot L60.0 [place] [address] [address] Apr, Ingrowing nail with infection L60.0 [facility] [address] [place] [id number] [place] [address] Mar, Ingrown toenail of right abdoulaye t with infection L60.0 [facility] [address] [address] Oct, Influenza J11.1 and Cough R0 5 [place] [address] [address] Aug, Ingrown right greater toenail L60.0 [place] [address] [address] Aug, Ingrowing nail with infection L60.0 [place] [address] [address] December, Nail, ingrown L60.0 [facility] [place] [address] [place] [id number] [address] [place] [address] Sep, Influenza A J10.1 and Fever R50.9 [place] [address] [address] Jun, Nail, ingrown L60.0 and Paronychia, left L03.012 [place] [address] [address] Jun, [facility] [address] [place] [id number] [address] [place] [address] Jun, Ingrowing left great toenail L60.0 and Ingrowing toenail with infection L60.0 [place] [address] [address] May, Ingrowing toenail with infection L60.0 [facility] [address] [facility] [id number] [place] [address] 14 Apr, [address] [facility] [address] [id number] [place] [address] Oct, Encounter for PPD test Z11.1 [facility] [address] [address] 24 Sep, 2015 Encounter for PPD test Z11.1 [facility] [address] [facility] [id number] [place] [address] Aug, Acute viral conjunctivitis o f both eyes B30.9 [facility] [address] [address] Jun, Encounter for immunization Z23 [facility] [address] [address] 14 Nov, 2014 [facility] [address] [address] Nov, [facility] [address] [address] Oct, [facility] [address] [address] Oct, [facility] [address] [address] Oct, [facility] [address] [address] Oct, [facility] [address] [address] Oct, [facility] [address] [address] [address], [address] [facility] [address] [address] Oct, [facility] [address] [address] Oct, [facility] [address] [id number] [place] [address] Oct, [facility] [address] [id number] [place] [address] Oct, [facility] [address] [id number] [place] [address] Sep, [facility] [address] [id number] [place] [address] Sep, [facility] [address] [facility] [place] [address] Aug, [facility] [address] [id number] [place] [address] Aug, [facility] [address] [facility] [place] [address] Jul, [facility] [address] [id number] [place] [address] Jul, [facility] [address] [facility] [place] [address] Jul, [facility] [address] [facility] [place] [address] Jul, [facility] [address] [id number] [place] [address] Jun, [facility] [address] [id number] [place] [address] Jun, [facility] [address] [id number] [place] [address] May, [facility] [address] [id number] [place] [address] May, [facility] [address] [id number] [place] [address] May, [facility] [address] [id number] [place] [address] May, [facility] [address] [place] [id number] [place] [address] Oct, [facility] [address] [address] Oct, [facility] [address] [address] Oct, [facility] [address] [address] Oct, [facility] [address] [address] Sep, [facility] [address] [address] Aug, [facility] [address] [address] Aug, [facility] [address] [address] Jun, [facility] [address] [address] Jun, [facility] [address] [address] May, [place] [address] [address] May, [facility] [address] [address] Nov, IMMUNIZATIONS No Known Immunizations SOCIAL HISTORY Never Assessed REASON FOR VISIT Establish Care/IPT - dr shyanne snider - marleny brown, feels like he has insomnia - ca nt tell if he has been sleeping or not - marleny brown, been having hallucinations an d see figures in closets of people - doesnt know if its the medication or not- emily enriquez ma, has trembling in hands and isnt getting better - marleny brown PLAN OF CARE Activity Details Follow Up 4 Weeks Reason: VITAL SIGNS Height 71 in 2018-11-06 Weight 178.1 lbs 2018-11-06 Temperature 97.5 degrees Fahrenheit 2018-11-06 Heart Rate 107 bpm 2018-11-06 Respiratory Rate 20 2018-11-06 BMI 24.84 kg/m2 2018-11-06 Blood pressure systolic 136 mmHg 2018-11-06 Blood pressure diastolic 70 mmHg 2018-11-06 MEDICATIONS Medication Instructions Dosage Frequency Start Date End Date Duration S oneil Sertraline HCl 100 MG Orally Once a day 1 tablet 24h Aug, 30 day(s) Active HydrOXYzine Pamoate 25 MG Orally every 8 hours, PRN 1 capsule as ne eded Aug, 30 day(s) Active Atenolol 50 MG Orally Once a day 1 tablet 24h Oct, 3 0 day(s) Active RESULTS No Results PROCEDURES No Known procedures INSTRUCTIONS MEDICATIONS ADMINISTERED No Known Medications MEDICAL (GENERAL) HISTORY Type Description Date Medical History autism Medical History depression Medical History anxiety Surgical History No Surgical history information
--- OUTSIDE RECORDS SUMMARY | 2020-02-18 22:33 | XMS REPORT ---
Author Author Tomasa Albrecht Doctor Organization [facility] Address Unknown Phone Unavailable Care Team Providers Care Operating Systems Programmer Name Role Phone Migration, Doctor Unavailable Unavailable PROBLEMS Type Condition ICD9-CM Code BAS98-HD Code Onset Dates Condition S tatus SNOMED Code Problem Generalized anxiety disorder F41.1 A ctive 04680497 Problem Cerebellar tremor G25.2 Active 30 471781 ALLERGIES No Information ENCOUNTERS Encounter Location Date Diagnosis [facility] [address] [id number] [address] [place] [address] Feb, Ingrowing right great toenai l L60.0 and Cellulitis of toe of right foot L03.031 [facility] [address] [id number] [address] [place] [address] Nov, Generalized anxiety disorder F41.1 and Cerebellar tremor G25.2 [facility] [address] [id number] [address] [place] [address] Oct, Generalized anxiety disorder F41.1 and Cerebellar tremor G25.2 [facility] [address] [id number] [address] [place] [address] Sep, [facility] [address] [id number] [address] [place] [address] Aug, Generalized anxiety disorder F41.1 [facility] [address] [id number] [address] [place] [address] Jun, Ingrown nail of great toe of right foot L60.0 [facility] [address] [id number] [address] [place] [address] Apr, Ingrowing nail with infectio n L60.0 [facility] [address] [id number] [address] [place] [address] Mar, Ingrown toenail of right abdoulaye t with infection L60.0 [facility] [address] [facility] [id number] [address] [place] [address] Oct, Influenza J11.1 and Cough R0 5 [place] [address] [facility] [id number] [address] [place] [address] Aug, Ingrown right greater toenai l L60.0 [place] [address] [facility] [id number] [address] [place] [address] Aug, Ingrowing nail with infectio n L60.0 [place] [address] [facility] [id number] [address] [place] [address] December, Nail, ingrown L60.0 [facility] [address] [id number] [address] [place] [phone] 07 Sep, 2016 Influenza A J10.1 and Fever R50.9 [place] [address] [id number] [address] [place] [address] Jun, Nail, ingrown L60.0 and Paro nychia, left L03.012 [place] [address] [place] [id number] [address] [place] [address] Jun, [facility] [address] [id number] [address] [place] [address] Jun, Ingrowing left great toenail L60.0 and Ingrowing toenail with infection L60.0 [place] [address] [facility] [id number] [address] [place] [address] May, Ingrowing toenail with infec tion L60.0 [facility] [address] [facility] [id number] [address] [place] [phone] 14 Apr, 2016 Coughing R05 [place] [address] [place] [id number] [address] [place] [address] Oct, Encounter for PPD test Z11.1 [place] [address] [id number] [address] [place] [id number] 24 Sep, 2015 Encounter for PPD test Z11.1 [facility] [address] [facility] [id number] [address] [place] [address] 06 Aug, 2015 Acute viral conjunctivitis o f both eyes B30.9 [facility] [address] [facility] [id number] [address] [place] [address] 18 Jun, 2015 Encounter for immunization Z 23 [facility] [address] [id number] [address] [place] [address] 14 Nov, 2014 [facility] [address] [id number] [address] [place] [phone] Nov, [facility] [address] [facility] [id number] [address] [place] [address] Oct, [facility] [address] [id number] [address] [place] [address] Oct, [facility] [address] [id number] [address] [place] [address] Oct, [facility] [address] [id number] [address] [place] [address] Oct, [facility] [address] [facility] [id number] [address] [place] [address] Oct, [facility] [address] [id number] [address] [place] [address] Oct, [facility] [address] [id number] [address] [place] [address] Oct, [facility] [address] [id number] [address] [place] [address] Oct, [facility] [address] [facility] [id number] [address] [place] [address] Oct, [facility] [address] [id number] [address] [place] [address] Oct, [facility] [address] [id number] [address] [place] [address], [place] [address] Sep, [facility] [address] [id number] [address] [place] [address], [place] [address] Sep, [facility] [address] [id number] [address] [place] [address], [place] [address] Aug, [facility] [address] [id number] [address] [place] [address], [place] [address] Aug, [facility] [address] [id number] [address] [place] [address], [place] [address] Jul, [facility] [address] [id number] [address] [place] [address], [place] [address] Jul, [facility] [address] [id number] [address] [place] [address], [place] [address] Jul, [facility] [address] [id number] [address] [place] [address], [place] [address] Jul, [facility] [address] [id number] [address] [place] [address], [place] [address] Jun, [facility] [address] [id number] [address] [place] [address], [place] [address] Jun, [facility] [address] [id number] [address] [place] [address], [place] [address] May, [facility] [address] [id number] [address] [place] [address], [place] [address] May, [facility] [address] [id number] [address] [place] [address], [place] [address] May, [facility] [address] [id number] [address] [place] [address], [place] [address] May, [facility] [address] [id number] [address] [place] [address], [place] [address] Oct, [facility] [address] [id number] [address] [place] [address] Oct, [facility] [address] [id number] [address] [place] [address] Oct, [facility] [address] [id number] [address] [place] [address] Oct, [facility] [address] [id number] [address] [place] [address] Sep, [facility] [address] [id number] [address] [place] [address] Aug, [facility] [address] [id number] [address] [place] [address] Aug, [facility] [address] [id number] [address] [place] [address] Jun, [facility] [address] [id number] [address] [place] [address] Jun, [facility] [address] [id number] [address] [place] [address] May, [facility] [address] [id number] [address] [place] [address] May, [facility] [address] [id number] [address] [place] [address] Nov, IMMUNIZATIONS No Known Immunizations SOCIAL HISTORY Never Assessed REASON FOR VISIT PLAN OF CARE VITAL SIGNS MEDICATIONS No Known Medications RESULTS No Results PROCEDURES No Known procedures INSTRUCTIONS MEDICATIONS ADMINISTERED No Known Medications MEDICAL (GENERAL) HISTORY Type Description Date Medical History autism Medical History depression Medical History anxiety Surgical History No Surgical history information
--- OUTSIDE RECORDS SUMMARY | 2020-02-18 22:34 | XMS REPORT ---
Author Author Tomasa COTA [facility] [employer] Address Unknown Phone Unavailable Care Team Providers Care Community Director Name Role Phone JENN COTA CP Unavailable Allergies, Adverse Reactions, Alerts Substance Reaction Event Type N.K.D.A. Info Not Available Non Drug Allergy Problems Problem Type Condition Code Onset Dates Condition Statu s Problem Bipolar disorder, unspecified 296.80 Active Problem Routine or child health check V20.2 Active Problem Ingrowing nail 703.0 Active Assessment Ingrowing toenail with infection L60.0 Active Problem Unspecified episodic mood disorder 296.90 Active Problem Impetigo 684 Active Problem Screening examination for pulmonary tuberculosis V74.1 Active Problem Generalized anxiety disorder 300.02 Active Problem Acute sinusitis, unspecified 461.9 Active Problem Autistic disorder, current or active state 299.00 Active Problem Major depressive disorder, recurrent episode, moderate 296.32 Active Medications Medication Code System Code Instructions Start Date End Date Status Dosage Keflex [facility] [address]-41 500 MG Orally Twice a day Jun 01, 2016 Jun 08, 2016 1 capsule Vyvanse [facility] [address]-38 30 MG Orally Once a day 1 capsule in the morning HydrOXYzine HCl [facility] [address]-42 25 MG Orally every 8 hrs 1 tablet as needed Procedures Procedure Coding System Code Date Office Visit, Est Pt., Level 3 CPT-[address] 2015 Vital Signs Date/Time: Jun 01, 2016 Cardiac Monitoring Heart Rate 72 bpm Weight 155.2 lbs Height 71 in Wt Percentile 58.72 % BMI 21.64 Index Blood Pressure Diastolic 82 mmHg Blood Pressure Systolic 106 mmHg BMIPercentile 43.86 % Results No Known Results Summary Purpose eClinicalWorks Submission
--- OUTSIDE RECORDS SUMMARY | 2020-02-18 22:34 | XMS REPORT ---
Author Author Tomasa WALLS Organization [facility] Address [address] [place] [address] Care Team Providers Care Show Card Writer Name Role Phone KAVITA SHERLY Unavailable PROBLEMS Type Condition ICD9-CM Code AOF11-LH Code Onset Dates Condition S tatus SNOMED Code Problem Screening examination for pulmonary tuberculosis V74.1 Active 838493588 Problem Impetigo 684 Active 98578569 Problem Ingrowing nail 703.0 Active 72890 7001 Problem Routine or child health check V20.2 Active 619647980 Problem Major depressive disorder, recurrent episode, moderate 296 .32 Active 45402957 Problem Bipolar disorder, unspecified 296.80 Active 30457518 Problem Generalized anxiety disorder 300.02 A ctive 24878928 Problem Acute sinusitis, unspecified 461.9 A ctive 99368449 Problem Unspecified episodic mood disorder 296.90 Active 942410492 Problem Autistic disorder, current or active state 299.00 Active 461018908 ALLERGIES No Known Allergies ENCOUNTERS Encounter Location Date Diagnosis [facility] [address] [id number] [address] [place] [address] Oct, Influenza J11.1 [address] C[address] R0 [address] [facility] [address] [id number] [address] [place] [address] Aug, Ingrown right greater toenai l L60.0 [facility] [address] [id number] [address] [place] [address] Aug, Ingrowing nail with infectio n L60.0 [facility] [address] [id number] [address] [place] [address] December, Nail, ingrown L60.0 [facility] [address] [id number] [address] [place] [address] Sep, Influenza A J10.1 and Fever R50.9 [place] [id number] [place] [address] Jun, Nail, ingrown L60.0 and Paro nychia, left L03.012 [place] [address] [id number] [address] [place] [address] Jun, [facility] [address] [address] Jun, Ingrowing left great toenail L60.0 and Ingrowing toenail with infection L60.0 [place] [address] [address] May, Ingrowing toenail with infec tion L60.0 [facility] [place] [address] [address] Apr, Coughing R05 [place] [address] [address] Oct, Encounter for PPD test Z11.1 [place] [address] [address] Sep, Encounter for PPD test Z11.1 [facility] [place] [address] [id number] [place] [address] Aug, Acute viral conjunctivitis o f both eyes B30.9 [place] [address] [id number] [place] [address] Jun, Encounter for immunization Z 23 [place] [address] [address] 14 Nov, 2014 [place] [address] [address] Nov, [place] [address] [address] Oct, [facility] [address] [id number] [address] [place] [address], [place] [address] Oct, [facility] [address] [id number] [address] [place] [address], [place] [address] Oct, [facility] [address] [id number] [address] [place] [address], [place] [address] Oct, [facility] [address] [id number] [address] [place] [address], [place] [address] Oct, [facility] [address] [id number] [address] [place] [address], [place] [address] Oct, [facility] [address] [id number] [address] [place] [address], [place] [address] Oct, [facility] [address] [id number] [address] [place] [address], [place] [address] Oct, [facility] [address] [id number] [address] [place] [address], [place] [address] Oct, [facility] [address] [id number] [address] [place] [address], [place] [address] Oct, [facility] [address] [id number] [address] [place] [address], [place] [address] Sep, [facility] [address] [id number] [address] [place] [address], [place] [address] Sep, [facility] [address] [id number] [address] [place] [address], [place] [address] Aug, [facility] [address] [id number] [address] [place] [address], [place] [address] Aug, [facility] [address] [id number] [address] [place] [address], [place] [address] Jul, [facility] [address] [id number] [address] [place] [address], [place] [address] Jul, [facility] [address] [id number] [address] [place] [address], [place] [address] Jul, [facility] [address] [id number] [address] [place] [address], [place] [address] Jul, [facility] [address] [id number] [address] [place] [address], [place] [address] Jun, [facility] [address] [id number] [address] [place] [address], [place] [address] Jun, [facility] [address] [id number] [address] [place] [address], [place] [address] May, [facility] [address] [id number] [address] [place] [address], [place] [address] May, [facility] [address] [id number] [address] [place] [address], [place] [address] May, [facility] [address] [id number] [address] [place] [address], [place] [address] May, [facility] [address] [id number] [address] [place] [address], [place] [address] Oct, [facility] [address] [id number] [address] [place] [address], [place] [address] Oct, [facility] [address] [id number] [address] [place] [address], [place] [address] Oct, [facility] [address] [id number] [address] [place] [address], [place] [address] Oct, [facility] [address] [id number] [address] [place] [address], [place] [address] Sep, [facility] [address] [id number] [address] [place] [address], [place] [address] Aug, [facility] [address] [id number] [address] [place] [address], [place] [address] Aug, [facility] [address] [id number] [address] [place] [address], [place] [address] Jun, [facility] [address] [facility] [id number] [address] [place] [address] Jun, [facility] [address] [facility] [id number] [address] [place] [address] May, [facility] [address] [facility] [id number] [address] [place] [address] May, [facility] [address] [facility] [id number] [address] [place] [address] Nov, IMMUNIZATIONS No Known Immunizations SOCIAL HISTORY Never Assessed REASON FOR VISIT Toenail removal: left great toe dante mcclain PLAN OF CARE Activity Details Follow Up prn Reason: VITAL SIGNS Height 71 in 2017-09-19 Weight 162.5 lbs 2017-09-19 Temperature 97.7 degrees Fahrenheit 2017-09-19 Heart Rate 80 bpm 2017-09-19 Respiratory Rate 18 2017-09-19 BMI 22.66 kg/m2 2017-09-19 Blood pressure systolic 118 mmHg 2017-09-19 Blood pressure diastolic 64 mmHg 2017-09-19 MEDICATIONS Medication Instructions Dosage Frequency Start Date End Date Duration S tatus Vyvanse 30 MG Orally Once a day 1 capsule in the morning 24h Not-Taking Zaditor 0.025 % Ophthalmic Twice a day 1 drop into affected eye 12h Aug, 10 days Not-Taking Tamiflu 75 MG Orally Twice a day 1 capsule 12h Sep, 5 day(s) Not-Taking Adderall 5 MG Orally Once a day 1 tablet in the morning 24h Not-Taking HydrOXYzine HCl 25 MG Orally every 8 hrs 1 tablet as needed 8h Not-Taking RESULTS No Results PROCEDURES Procedure Date Ordered Result Body Site NAIL REMOVAL SINGLE (COMPLETE OR PARTIAL) 2017-09-19 N/A REMOVAL OF NAIL PLATE Sep 19, 2017 INSTRUCTIONS MEDICATIONS ADMINISTERED No Known Medications MEDICAL (GENERAL) HISTORY Type Description Date Medical History autism Medical History depression
--- OUTSIDE RECORDS SUMMARY | 2020-02-18 22:34 | XMS REPORT ---
Author Author Tomasa HEALY Organization [facility] Address [address] [place] [address] Care Team Providers Care Rotational Moulding Operator Name Role Phone RAFAELA HEALY Unavailable PROBLEMS Type Condition ICD9-CM Code OPG80-NE Code Onset Dates Condition S tatus SNOMED Code Problem Screening examination for pulmonary tuberculosis V74.1 Active 393806890 Problem Impetigo 684 Active 59224463 Problem Ingrowing nail 703.0 Active 41364 7000 Problem Routine or child health check V20.2 Active 911551109 Problem Major depressive disorder, recurrent episode, moderate 296 .32 Active 65637337 Problem Bipolar disorder, unspecified 296.80 Active 31701938 Problem Generalized anxiety disorder 300.02 A ctive 83831637 Problem Acute sinusitis, unspecified 461.9 A ctive 71134411 Problem Unspecified episodic mood disorder 296.90 Active 112165096 Problem Autistic disorder, current or active state 299.00 Active 220575261 ALLERGIES No Known Allergies ENCOUNTERS Encounter Location Date Diagnosis [facility] [address] [place] [id number] [address] [place] [address] Oct, Influenza J11.1 and Cough R0 5 [facility] [address] [id number] [place] [address] Aug, Ingrown right greater toenai l L60.0 [facility] [address] [place] [id number] [address] [place] [address] Aug, Ingrowing nail with infectio n L60.0 [facility] [address] [place] [address] [id number] [address] [place] [address] December, Nail, ingrown L60.0 [facility] [address] [place] [address] [id number] [address] [place] [address] Sep, Influenza A J10.1 and Fever R50.9 [facility] [address] [place] [address] Jun, Nail, ingrown L60.0 and Paro nychia, left L03.012 [facility] [address] [place] [address] [id number] [address] [place] [address] Jun, [facility] [address] [address] Jun, Ingrowing left great toenail L60.0 and Ingrowing toenail with infection L60.0 [place] [address] [address] May, Ingrowing toenail with infec tion L60.0 [facility] [address] [address] Apr, Coughing R05 [place] [address] [address] Oct, Encounter for PPD test Z11.1 [place] [address] [address] Sep, Encounter for PPD test Z11.1 [facility] [address] [address] Aug, Acute viral conjunctivitis o f both eyes B30.9 [place] [address] [place] [id number] [place] [address] Jun, Encounter for immunization Z 23 [place] [address] [address] 14 Nov, 2014 [place] [address] [address] Nov, [place] [address] [address] Oct, [facility] [address] [id number] [address] [place] [address], [place] [address] Oct, [facility] [address] [id number] [address] [place] [address], [place] [address] Oct, [facility] [address] [id number] [address] [place] [address], [place] [address] Oct, [facility] [address] [id number] [address] [place] [address], [place] [address] Oct, [facility] [address] [id number] [address] [place] [address], [place] [address] Oct, [facility] [address] [id number] [address] [place] [address], [place] [address] Oct, [facility] [address] [id number] [address] [place] [address], [place] [address] Oct, [facility] [address] [id number] [address] [place] [address], [place] [address] Oct, [facility] [address] [id number] [address] [place] [address], [place] [address] Oct, [facility] [address] [id number] [address] [place] [address], [place] [address] Sep, [facility] [address] [id number] [address] [place] [address], [place] [address] Sep, [facility] [address] [id number] [address] [place] [address], [place] [address] Aug, [facility] [address] [id number] [address] [place] [address], [place] [address] Aug, [facility] [address] [id number] [address] [place] [address], [place] [address] Jul, [facility] [address] [id number] [address] [place] [address], [place] [address] Jul, [facility] [address] [id number] [address] [place] [address], [place] [address] Jul, [facility] [address] [id number] [address] [place] [address], [place] [address] Jul, [facility] [address] [id number] [address] [place] [address], [place] [address] Jun, [facility] [address] [id number] [address] [place] [address], [place] [address] Jun, [facility] [address] [id number] [address] [place] [address], [place] [address] May, [facility] [address] [id number] [address] [place] [address], [place] [address] May, [facility] [address] [id number] [address] [place] [address], [place] [address] May, [facility] [address] [id number] [address] [place] [address], [place] [address] May, [facility] [address] [id number] [address] [place] [address], [place] [address] Oct, [facility] [address] [id number] [address] [place] [address], [place] [address] Oct, [facility] [address] [id number] [address] [place] [address], [place] [address] Oct, [facility] [address] [id number] [address] [place] [address], [place] [address] Oct, [facility] [address] [id number] [address] [place] [address], [place] [address] Sep, [facility] [address] [id number] [address] [place] [address], [place] [address] Aug, [facility] [address] [id number] [address] [place] [address], [place] [address] Aug, [facility] [address] [id number] [address] [place] [address], [place] [address] Jun, [facility] [address] [id number] [address] [place] [address] Jun, [facility] [address] [facility] [id number] [address] [place] [address] May, [facility] [address] [facility] [id number] [address] [place] [address] May, [facility] [address] [facility] [id number] [address] [place] [address] Nov, IMMUNIZATIONS No Known Immunizations SOCIAL HISTORY Never Assessed REASON FOR VISIT geno Sandoval RN, Right great toe PLAN OF CARE VITAL SIGNS Height 71 in 2017-08-31 Weight 160 lbs 2017-08-31 Temperature 98.5 degrees Fahrenheit 2017-08-31 Heart Rate 88 bpm 2017-08-31 Respiratory Rate 20 2017-08-31 BMI 22.31 kg/m2 2017-08-31 Blood pressure systolic 128 mmHg 2017-08-31 Blood pressure diastolic 78 mmHg 2017-08-31 MEDICATIONS Medication Instructions Dosage Frequency Start Date End Date Duration S tatus Vyvanse 30 MG Orally Once a day 1 capsule in the morning 24h Not-Taking Keflex 500 mg Orally 4 times a day 1 capsule 6h Aug, Aug, 10 day(s) Active Zaditor 0.025 % Ophthalmic Twice a day 1 drop into affected eye 12h Aug, 10 days Not-Taking Adderall 5 MG Orally Once a day 1 tablet in the morning 24h Not-Taking HydrOXYzine HCl 25 MG Orally every 8 hrs 1 tablet as needed 8h Not-Taking Tamiflu 75 MG Orally Twice a day 1 capsule 12h Sep, 5 day(s) Not-Taking RESULTS No Results PROCEDURES No Known procedures INSTRUCTIONS MEDICATIONS ADMINISTERED No Known Medications MEDICAL (GENERAL) HISTORY Type Description Date Medical History autism Medical History depression
--- OUTSIDE RECORDS SUMMARY | 2020-02-18 22:34 | XMS REPORT ---
Author Author Tomasa HEALY Organization [employer] Address Unknown Phone Unavailable Care Team Providers Care Forensic Toxicologist Name Role Phone RAFAELA HEALY CP Unavailable Allergies No Known Allergies Problems Problem Type Condition Code Onset Dates Condition Statu s Problem Bipolar disorder, unspecified 296.80 Active Problem Routine infant or child health check V20.2 Active Problem Ingrowing nail 703.0 Active Problem Unspecified episodic mood disorder 296.90 Active Problem Impetigo 684 Active Problem Screening examination for pulmonary tuberculosis V74.1 Active Problem Generalized anxiety disorder 300.02 Active Problem Acute sinusitis, unspecified 461.9 Active Problem Autistic disorder, current or active state 299.00 Active Problem Major depressive disorder, recurrent episode, moderate 296.32 Active Medications Medication Code System Code Instructions Start Date End Date Status Dosage Keflex [facility] [address]-39 500 MG Orally Four times a day No v 2015Jul 29, 2016 1 capsule Results No Known Results Summary Purpose eClinicalWorks Submission
--- OUTSIDE RECORDS SUMMARY | 2020-02-18 22:34 | XMS REPORT ---
Author Author Tomasa GAGE [facility] [employer] Address Unknown Phone Unavailable Care Team Providers Care Field Service Technician Name Role Phone RICHARD GAGE CP Unavailable Allergies, Adverse Reactions, Alerts Substance Reaction Event Type N.K.D.A. Info Not Available Non Drug Allergy Problems Problem Type Condition Code Onset Dates Condition Statu s Problem Bipolar disorder, unspecified 296.80 Active Problem Routine infant or child health check V20.2 Active Problem Ingrowing nail 703.0 Active Assessment Ingrowing toenail with infection L60.0 Active Assessment Ingrowing left great toenail L60.0 Active Problem Unspecified episodic mood disorder 296.90 Active Problem Impetigo 684 Active Problem Screening examination for pulmonary tuberculosis V74.1 Active Problem Generalized anxiety disorder 300.02 Active Problem Acute sinusitis, unspecified 461.9 Active Problem Autistic disorder, current or active state 299.00 Active Problem Major depressive disorder, recurrent episode, moderate 296.32 Active Medications Medication Code System Code Instructions Start Date End Date Status Dosage Vyvanse [facility] [address]-25 30 MG Orally Once a day 1 capsule in the morning Bactrim DS [facility] [address]-15 800-160 MG Orally Twice a day Jul 02, 2016 Jul 12, 2016 1 tablet HydrOXYzine HCl [facility] [address]-49 25 MG Orally every 8 hrs 1 tablet as needed Procedures Procedure Coding System Code Date Office Visit, Est Pt., Level 3 CPT-4 88587 N ov 2015 Vital Signs Date/Time: Jul 02, 2016 Cardiac Monitoring Heart Rate 62 bpm Weight 154.8 lbs Height 71 in Wt Percentile 57.56 % BMI 21.59 Index Blood Pressure Diastolic 82 mmHg Blood Pressure Systolic 106 mmHg BMIPercentile 42.43 % Results No Known Results Summary Purpose eClinicalWorks Submission
--- OUTSIDE RECORDS SUMMARY | 2020-02-18 22:34 | XMS REPORT ---
Author Author Tomasa HEALY Organization [facility] Address [address] [place] [address] Care Team Providers Care Inspector Machined Parts Name Role Phone RAFAELA HEALY Unavailable PROBLEMS Type Condition ICD9-CM Code JVT24-GA Code Onset Dates Condition S tatus SNOMED Code Problem Ingrowing nail 703.0 Active 49807 7002 Problem Acute sinusitis, unspecified 461.9 A ctive 34257600 Problem Routine or child health check V20.2 Active 242846323 Assessment Paronychia, left L03.012 Jun, Active 29189541 Assessment Nail, ingrown L60.0 Jun, Active 40 0882941 Problem Bipolar disorder, unspecified 296.80 Active 10786378 Problem Screening examination for pulmonary tuberculosis V74.1 Active 995522643 Problem Unspecified episodic mood disorder 296.90 Active 599247082 Problem Major depressive disorder, recurrent episode, moderate 296 .32 Active 50024081 Problem Generalized anxiety disorder 300.02 A ctive 42225082 Problem Impetigo 684 Active 49535806 Problem Autistic disorder, current or active state 299.00 Active 392488585 ALLERGIES Substance Reaction Event Type Date Status N.K.D.A. Unknown Non Drug Allergy Jun, Unknown SOCIAL HISTORY No smoking Hx information available PLAN OF CARE VITAL SIGNS Height 71 in 2016-07-27 Weight 153.2 lbs 2016-07-27 Heart Rate 96 bpm 2016-07-27 Respiratory Rate 18 2016-07-27 BMI 21.36 kg/m2 2016-07-27 Blood pressure systolic 110 mmHg 2016-07-27 Blood pressure diastolic 68 mmHg 2016-07-27 MEDICATIONS Medication Instructions Dosage Frequency Start Date End Date Duration S tatus Vyvanse 30 MG Orally Once a day 1 capsule in the morning 24h Active Keflex 500 MG Orally Four times a day 1 capsule 6h Jun, Jul, 10 day(s) Active HydrOXYzine HCl 25 MG Orally every 8 hrs 1 tablet as needed 8h Active RESULTS No Results PROCEDURES Procedure Date Ordered Related Diagnosis Body Site NAIL REMOVAL PERMANENT (PARTIAL OR COMPLETE) 2016-07-27 N/A REMOVAL OF NAIL BED Jul 27, 2016 Office Visit, Est Pt., Level 2 Jul 27, 2016 IMMUNIZATIONS No Known Immunizations
--- OUTSIDE RECORDS SUMMARY | 2020-02-18 22:34 | XMS REPORT ---
Author Author Tomasa Albrecht Doctor Organization [facility] Address Unknown Phone Unavailable Care Team Providers Care Proteomics Scientist Name Role Phone Migration, Doctor Unavailable Unavailable PROBLEMS Type Condition ICD9-CM Code VTC74-BQ Code Onset Dates Condition S tatus SNOMED Code Problem Generalized anxiety disorder F41.1 A ctive 63198022 Problem Cerebellar tremor G25.2 Active 30 577915 ALLERGIES No Information ENCOUNTERS Encounter Location Date Diagnosis [place] [address] [address] Nov, Generalized anxiety disorder F41.1 and Cerebellar tremor G25.2 [place] [address] [address] Oct, Generalized anxiety disorder F41.1 and Cerebellar tremor G25.2 [facility] [id number] [address] [place] [address] Sep, [facility] [id number] [place] [address] Aug, Generalized anxiety disorder F41.1 [facility] [address] [id number] [place] [address] Jun, Ingrown nail of great toe of right foot L60.0 [facility] [address] [place] [address] Apr, Ingrowing nail with infectio n L60.0 [facility] [id number] [place] [address] Mar, Ingrown toenail of right abdoulaye t with infection L60.0 [facility] [id number] [place] [address] Oct, Influenza J11.1 and Cough R0 5 [facility] [address] [facility] [id number] [address] [place] [address] Aug, Ingrown right greater toenai l L60.0 [facility] [address] [facility] [id number] [address] [place] [address] Aug, Ingrowing nail with infectio n L60.0 [facility] [address] [place] [id number] [place] [address] December, Nail, ingrown L60.0 [facility] [id number] [place] [address] 07 Sep, 2016 Influenza A J10.1 and Fever R50.9 [place] [address] [place] [id number] [place] [address] Jun, Nail, ingrown L60.0 and Paro nychia, left L03.012 [place] [address] [place] [id number] [place] [address] Jun, [facility] [address] [address] Jun, Ingrowing left great toenail L60.0 and Ingrowing toenail with infection L60.0 [facility] [id number] [place] [address] May, Ingrowing toenail with infec tion L60.0 [facility] [id number] [place] [address] 14 Apr, 2016 Coughing R05 [place] [address] [address] Oct, Encounter for PPD test Z11.1 [facility] [id number] [place] [address] 24 Sep, 2015 Encounter for PPD test Z11.1 [facility] [address] [address] Aug, Acute viral conjunctivitis o f both eyes B30.9 [facility] [address] [id number] [address] [place] [address] 18 Jun, 2015 Encounter for immunization Z 23 [facility] [address] [id number] [address] [place] [address] 14 Nov, 2014 [facility] [address] [id number] [address] [place] [address] Nov, [facility] [address] [id number] [address] [place] [address] Oct, [facility] [address] [id number] [address] [place] [address] Oct, [facility] [address] [id number] [address] [place] [address] Oct, [facility] [address] [id number] [address] [place] [address] Oct, [facility] [address] [id number] [address] [place] [address] Oct, [facility] [address] [id number] [address] [place] [address] Oct, [facility] [address] [id number] [address] [place] [address] Oct, [facility] [address] [id number] [address] [place] [address] Oct, [facility] [address] [id number] [address] [place] [address] Oct, [facility] [address] [id number] [address] [place] [address] Oct, [facility] [address] [id number] [address] [place] [address] Sep, [facility] [address] [id number] [address] [place] [address] Sep, [facility] [address] [id number] [address] [place] [address], [place] [address] Aug, [facility] [address] [id number] [address] [place] [address], [place] [address] Aug, [facility] [address] [id number] [address] [place] [address], [place] [address] Jul, [facility] [address] [id number] [address] [place] [address], [place] [address] Jul, [facility] [address] [id number] [address] [place] [address], [place] [address] Jul, [facility] [address] [id number] [address] [place] [address], [place] [address] Jul, [facility] [address] [id number] [address] [place] [address], [place] [address] Jun, [facility] [address] [id number] [address] [place] [address], [place] [address] Jun, [facility] [address] [id number] [address] [place] [address], [place] [address] May, [facility] [address] [id number] [address] [place] [address], [place] [address] May, [facility] [address] [id number] [address] [place] [address], [place] [address] May, [facility] [address] [id number] [address] [place] [address], [place] [address] May, [facility] [address] [id number] [address] [place] [address], [place] [address] Oct, [facility] [address] [id number] [address] [place] [address], [place] [address] Oct, [facility] [address] [id number] [address] [place] [address], [place] [address] Oct, [facility] [address] [id number] [address] [place] [address] Oct, [facility] [address] [id number] [address] [place] [address] Sep, [facility] [address] [id number] [address] [place] [address] Aug, [facility] [address] [id number] [address] [place] [address] Aug, [facility] [address] [id number] [address] [place] [address] Jun, [facility] [address] [id number] [address] [place] [address] Jun, [facility] [address] [id number] [address] [place] [address] May, [facility] [address] [id number] [address] [place] [address] May, [facility] [address] [id number] [address] [place] [address] Nov, IMMUNIZATIONS No Known Immunizations SOCIAL HISTORY Never Assessed REASON FOR VISIT EMR-[facility] [place] PLAN OF CARE VITAL SIGNS MEDICATIONS Unknown Medications RESULTS No Results PROCEDURES No Known procedures INSTRUCTIONS MEDICATIONS ADMINISTERED No Known Medications MEDICAL (GENERAL) HISTORY Type Description Date Medical History autism Medical History depression Medical History anxiety Surgical History No Surgical history information
--- OUTSIDE RECORDS SUMMARY | 2020-02-18 22:34 | XMS REPORT ---
Author Author Tomasa HERNANDEZ [facility] [employer]ClinicalWorks Address Unknown Phone Unavailable Care Team Providers Care Accountant Property Name Role Phone ISAAC HERNANDEZ Unavailable Allergies No Known Allergies Problems Problem Type Condition Code Onset Dates Condition Statu s Problem Bipolar disorder, unspecified 296.80 Active Problem Routine or child health check V20.2 Active Problem Ingrowing nail 703.0 Active Assessment Encounter for immunization Z23 A ctive Problem Unspecified episodic mood disorder 296.90 Active Problem Impetigo 684 Active Problem Screening examination for pulmonary tuberculosis V74.1 Active Problem Generalized anxiety disorder 300.02 Active Problem Acute sinusitis, unspecified 461.9 Active Problem Autistic disorder, current or active state 299.00 Active Problem Major depressive disorder, recurrent episode, moderate 296.32 Active Medications No Known Medications Procedures Procedure Coding System Code Date SINGLE IMMUNIZATION ADMIN CPT-4 23932 Jun FLUZONE QUAD (3 & UP)-SINGLE DOSE VIAL-SANOFI PASTEUR-2014 CPT-4 90044 Jul 16, 2015 Results No Known Results Immunizations Vaccine Administration Date FLUZONE QUAD (3 & UP)-SINGLE DOSE VIAL-SANOFI PASTEUR- 2014Jul 16, 2015 Summary Purpose eClinicalWorks Submission
--- OUTSIDE RECORDS SUMMARY | 2020-02-18 22:34 | XMS REPORT ---
Author Author Tomasa HEALY Organization [facility] Address [address] [place] [address] Care Team Providers Care Rib Trim Separator Name Role Phone RAFAELA HEALY Unavailable PROBLEMS Type Condition ICD9-CM Code JIF09-PQ Code Onset Dates Condition S tatus SNOMED Code Problem Ingrowing nail 703.0 Active 24792 7000 Problem Acute sinusitis, unspecified 461.9 A ctive 67366442 Problem Routine infant or child health check V20.2 Active 020700518 Assessment Coughing R05 14 Apr, 2016 Active 890958 02 Problem Bipolar disorder, unspecified 296.80 Active 79677024 Problem Screening examination for pulmonary tuberculosis V74.1 Active 365499860 Problem Unspecified episodic mood disorder 296.90 Active 330786169 Problem Major depressive disorder, recurrent episode, moderate 296 .32 Active 75264848 Problem Generalized anxiety disorder 300.02 A ctive 39813176 Problem Impetigo 684 Active 60643874 Problem Autistic disorder, current or active state 299.00 Active 232575091 ALLERGIES Substance Reaction Event Type Date Status N.K.D.A. Unknown Non Drug Allergy Apr, Unknown SOCIAL HISTORY No smoking Hx information available PLAN OF CARE VITAL SIGNS Height 71 in 2016-05-12 Weight 160.4 lbs 2016-05-12 Heart Rate 80 bpm 2016-05-12 Respiratory Rate 22 2016-05-12 BMI 22.37 kg/m2 2016-05-12 Blood pressure systolic 102 mmHg 2016-05-12 Blood pressure diastolic 70 mmHg 2016-05-12 MEDICATIONS Medication Instructions Dosage Frequency Start Date End Date Duration S tatus Vyvanse 30 MG Orally Once a day 1 capsule in the morning 24h Active HydrOXYzine HCl 25 MG Orally every 8 hrs 1 tablet as needed 8h Active RESULTS No Results PROCEDURES Procedure Date Ordered Related Diagnosis Body Site Office Visit, Est Pt., Level 3 May 12, 2016 IMMUNIZATIONS No Known Immunizations
--- OUTSIDE RECORDS SUMMARY | 2020-02-18 22:34 | XMS REPORT ---
Author Author Tomasa HEALY Organization [facility] Address [address] [place] [address] Care Team Providers Care Teacher Emotionally Impaired Name Role Phone RAFAELA HEALY Unavailable PROBLEMS Type Condition ICD9-CM Code LIH76-YQ Code Onset Dates Condition S tatus SNOMED Code Problem Screening examination for pulmonary tuberculosis V74.1 Active 613640498 Problem Impetigo 684 Active 39865157 Problem Ingrowing nail 703.0 Active 87047 7004 Problem Routine infant or child health check V20.2 Active 102200759 Problem Major depressive disorder, recurrent episode, moderate 296 .32 Active 11755273 Problem Bipolar disorder, unspecified 296.80 Active 66978916 Problem Generalized anxiety disorder 300.02 A ctive 28260056 Problem Acute sinusitis, unspecified 461.9 A ctive 56913426 Problem Unspecified episodic mood disorder 296.90 Active 788761889 Problem Autistic disorder, current or active state 299.00 Active 051352465 ALLERGIES No Known Allergies ENCOUNTERS Encounter Location Date Diagnosis [facility] [address] [id number] [address] [place] [address] Apr, Ingrowing nail with infectio n L60.0 [facility] [address] [id number] [address] [place] [address] Mar, Ingrown toenail of right abdoulaye t with infection L60.0 [facility] [address] [id number] [address] [place] [address] Oct, Influenza J11.1 and Cough R0 5 [facility] [address] [id number] [address] [place] [address] Aug, Ingrown right greater toenai l L60.0 [facility] [address] [id number] [address] [place] [address] Aug, Ingrowing nail with infectio n L60.0 [facility] [address] [id number] [address] [place] [address] December, Nail, ingrown L60.0 [facility] [address] [id number] [address] [place] [address] 07 Sep, 2016 Influenza A J10.1 and Fever R50.9 [place] [address] [address] Jun, Nail, ingrown L60.0 and Paro nychia, left L03.012 [place] [address] [address] Jun, [facility] [address] [address] Jun, Ingrowing left great toenail L60.0 and Ingrowing toenail with infection L60.0 [facility] [address] [id number] [address] [place] [address] May, Ingrowing toenail with infec tion L60.0 [facility] [address] [address] Apr, Coughing R05 [place] [address] [address] Oct, Encounter for PPD test Z11.1 [place] [id number] [place] [address] Sep, Encounter for PPD test Z11.1 [facility] [address] [address] Aug, Acute viral conjunctivitis o f both eyes B30.9 [place] [address] [id number] [place] [address] Jun, Encounter for immunization Z 23 [facility] [address] [id number] [address] [place] [address], [place] [address] 14 Nov, 2014 [facility] [address] [id number] [address] [place] [address], [place] [address] 13 Nov, 2014 [facility] [address] [id number] [address] [place] [address], [place] [address] 25 Oct, 2014 [facility] [address] [id number] [address] [place] [address], [place] [address] Oct, [facility] [address] [id number] [address] [place] [address], [place] [address] Oct, [facility] [address] [id number] [address] [place] [address], [place] [address] Oct, [facility] [address] [id number] [address] [place] [address], [place] [address] Oct, [facility] [address] [id number] [address] [place] [address], [place] [address] Oct, [facility] [address] [id number] [address] [place] [address], [place] [address] Oct, [facility] [address] [id number] [address] [place] [address], [place] [address] Oct, [facility] [address] [id number] [address] [place] [address], [place] [address] Oct, [facility] [address] [id number] [address] [place] [address], [place] [address] Oct, [facility] [address] [id number] [address] [place] [address], [place] [address] Sep, [facility] [address] [id number] [address] [place] [address], [place] [address] Sep, [facility] [address] [id number] [address] [place] [address], [place] [address] Aug, [facility] [address] [id number] [address] [place] [address], [place] [address] Aug, [facility] [address] [id number] [address] [place] [address], [place] [address] Jul, [facility] [address] [id number] [address] [place] [address], [place] [address] Jul, [facility] [address] [id number] [address] [place] [address], [place] [address] Jul, [facility] [address] [id number] [address] [place] [address], [place] [address] Jul, [facility] [address] [id number] [address] [place] [address], [place] [address] Jun, [facility] [address] [id number] [address] [place] [address], [place] [address] Jun, [facility] [address] [id number] [address] [place] [address], [place] [address] May, [facility] [address] [id number] [address] [place] [address], [place] [address] May, [facility] [address] [id number] [address] [place] [address], [place] [address] May, [facility] [address] [id number] [address] [place] [address], [place] [address] May, [facility] [address] [id number] [address] [place] [address], [place] [address] Oct, [facility] [address] [id number] [address] [place] [address], [place] [address] Oct, [facility] [address] [id number] [address] [place] [address], [place] [address] Oct, [facility] [address] [id number] [address] [place] [address], [place] [address] Oct, [facility] [address] [id number] [address] [place] [address], [place] [address] Sep, [facility] [address] [id number] [address] [place] [address] Aug, [facility] [address] [id number] [address] [place] [address] Aug, [facility] [address] [id number] [address] [place] [address] Jun, [facility] [address] [id number] [address] [place] [address] Jun, [facility] [address] [id number] [address] [place] [address] May, [facility] [address] [id number] [address] [place] [address] May, [facility] [address] [id number] [address] [place] [address] Nov, IMMUNIZATIONS No Known Immunizations SOCIAL HISTORY Never Assessed REASON FOR VISIT ingrown toenail on his right foot -Diallo GALEANA PLAN OF CARE Activity Details Future/Pending Procedure NAIL REMOVAL PERMANENT (PART IAL OR COMPLETE) VITAL SIGNS Height 71 in 2018-05-02 Weight 172.6 lbs 2018-05-02 Temperature 98.0 degrees Fahrenheit 2018-05-02 Heart Rate 108 bpm 2018-05-02 Respiratory Rate 20 2018-05-02 Oximetry 98 % 2018-05-02 BMI 24.07 kg/m2 2018-05-02 Blood pressure systolic 132 mmHg 2018-05-02 Blood pressure diastolic 68 mmHg 2018-05-02 MEDICATIONS Medication Instructions Dosage Frequency Start Date End Date Duration S tatus Keflex 500 MG Orally every 8 hrs 1 capsule 8h Mar, 10 S ep, 2017 10 day(s) Active RESULTS No Results PROCEDURES Procedure Date Ordered Result Body Site REMOVAL OF NAIL BED May 02, 2018 INSTRUCTIONS MEDICATIONS ADMINISTERED No Known Medications MEDICAL (GENERAL) HISTORY Type Description Date Medical History autism Medical History depression
--- OUTSIDE RECORDS SUMMARY | 2020-02-18 22:34 | XMS REPORT ---
Author Author Tomasa TAY [facility] Address [address] [place] [address] Care Team Providers Care Certified Adapted Physical Educator Name Role Phone RAMANA TAY Unavailable PROBLEMS Type Condition ICD9-CM Code EPL21-PN Code Onset Dates Condition S tatus SNOMED Code Problem Screening examination for pulmonary tuberculosis V74.1 Active 133464959 Problem Impetigo 684 Active 08387571 Problem Ingrowing nail 703.0 Active 63248 7003 Problem Routine infant or child health check V20.2 Active 888590171 Problem Major depressive disorder, recurrent episode, moderate 296 .32 Active 22794794 Problem Bipolar disorder, unspecified 296.80 Active 45333727 Problem Generalized anxiety disorder 300.02 A ctive 77320081 Problem Acute sinusitis, unspecified 461.9 A ctive 87476643 Problem Unspecified episodic mood disorder 296.90 Active 643659324 Problem Autistic disorder, current or active state 299.00 Active 527999762 ALLERGIES No Known Allergies ENCOUNTERS Encounter Location Date Diagnosis [facility] [address] [place] [address] Oct, Influenza J11.1 and Cough R0 5 [facility] [address] [id number] [place] [address] Aug, Ingrown right greater toenai l L60.0 [facility] [address] [id number] [place] [address] Aug, Ingrowing nail with infectio n L60.0 [facility] [id number] [place] [address] December, Nail, ingrown L60.0 [facility] [address] [id number] [address] [place] [address] Sep, Influenza A J10.1 and Fever R50.9 [place] [id number] [place] [address] Jun, Nail, ingrown L60.0 and Paro nychia, left L03.012 [place] [address] [address] [place] [address] Jun, [facility] [address] [address] Jun, Ingrowing left great toenail L60.0 and Ingrowing toenail with infection L60.0 [place] [address] [address] May, Ingrowing toenail with infec tion L60.0 [facility] [place] [address] [address] Apr, Coughing R05 [place] [address] [address] Oct, Encounter for PPD test Z11.1 [place] [address] [address] Sep, Encounter for PPD test Z11.1 [facility] [place] [id number] [place] [address] Aug, Acute viral conjunctivitis o f both eyes B30.9 [place] [id number] [place] [address] Jun, Encounter for immunization Z 23 [place] [address] [address] 14 Nov, 2014 [place] [address] [address] Nov, [place] [address] [address] Oct, [facility] [address] [id number] [address] [place] [address], [place] [address] Oct, [facility] [address] [id number] [address] [place] [address], [place] [address] Oct, [facility] [address] [id number] [address] [place] [address], [place] [address] Oct, [facility] [address] [id number] [address] [place] [address], [place] [address] Oct, [facility] [address] [id number] [address] [place] [address], [place] [address] Oct, [facility] [address] [id number] [address] [place] [address], [place] [address] Oct, [facility] [address] [id number] [address] [place] [address], [place] [address] Oct, [facility] [address] [id number] [address] [place] [address], [place] [address] Oct, [facility] [address] [id number] [address] [place] [address], [place] [address] Oct, [facility] [address] [id number] [address] [place] [address], [place] [address] Sep, [facility] [address] [id number] [address] [place] [address], [place] [address] Sep, [facility] [address] [id number] [address] [place] [address], [place] [address] Aug, [facility] [address] [id number] [address] [place] [address], [place] [address] Aug, [facility] [address] [id number] [address] [place] [address], [place] [address] Jul, [facility] [address] [id number] [address] [place] [address], [place] [address] Jul, [facility] [address] [id number] [address] [place] [address], [place] [address] Jul, [facility] [address] [id number] [address] [place] [address], [place] [address] Jul, [facility] [address] [id number] [address] [place] [address], [place] [address] Jun, [facility] [address] [id number] [address] [place] [address], [place] [address] Jun, [facility] [address] [id number] [address] [place] [address], [place] [address] May, [facility] [address] [id number] [address] [place] [address], [place] [address] May, [facility] [address] [id number] [address] [place] [address], [place] [address] May, [facility] [address] [id number] [address] [place] [address], [place] [address] May, [facility] [address] [id number] [address] [place] [address], [place] [address] Oct, [facility] [address] [id number] [address] [place] [address], [place] [address] Oct, [facility] [address] [id number] [address] [place] [address], [place] [address] Oct, [facility] [address] [id number] [address] [place] [address], [place] [address] Oct, [facility] [address] [id number] [address] [place] [address], [place] [address] Sep, [facility] [address] [id number] [address] [place] [address], [place] [address] Aug, [facility] [address] [id number] [address] [place] [address], [place] [address] Aug, [facility] [address] [id number] [address] [place] [address], [place] [address] Jun, [facility] [address] [facility] [id number] [address] [place] [address] Jun, [facility] [address] [facility] [id number] [address] [place] [address] May, [facility] [address] [facility] [id number] [address] [place] [address] May, [facility] [address] [facility] [id number] [address] [place] [address] Nov, IMMUNIZATIONS No Known Immunizations SOCIAL HISTORY Never Assessed REASON FOR VISIT Weakness, headache, chills, cough, congestion started today JStrasserRN PLAN OF CARE Activity Details Follow Up prn Reason: VITAL SIGNS Height 71 in 2017-11-24 Weight 159.0 lbs 2017-11-24 Temperature 99.5 degrees Fahrenheit 2017-11-24 Heart Rate 100 bpm 2017-11-24 Respiratory Rate 20 2017-11-24 BMI 22.17 kg/m2 2017-11-24 Blood pressure systolic 136 mmHg 2017-11-24 Blood pressure diastolic 72 mmHg 2017-11-24 MEDICATIONS Medication Instructions Dosage Frequency Start Date End Date Duration S tatus Tamiflu 75 MG Orally Twice a day 1 capsule 12h Oct, 5 day(s) Active Benzonatate 100 mg Orally Three times a day 1 capsule as needed 8h Oct, Active Zaditor 0.025 % Ophthalmic Twice a day 1 drop into affected eye 12h Aug, 10 days Not-Taking Tamiflu 75 MG Orally Twice a day 1 capsule 12h Sep, 5 day(s) Not-Taking Vyvanse 30 MG Orally Once a day 1 capsule in the morning 24h Not-Taking HydrOXYzine HCl 25 MG Orally every 8 hrs 1 tablet as needed 8h Not-Taking Adderall 5 MG Orally Once a day 1 tablet in the morning 24h Not-Taking RESULTS No Results PROCEDURES No Known procedures INSTRUCTIONS MEDICATIONS ADMINISTERED No Known Medications MEDICAL (GENERAL) HISTORY Type Description Date Medical History autism Medical History depression
--- OUTSIDE RECORDS SUMMARY | 2020-02-18 22:34 | XMS REPORT ---
Author Author Tomasa AGUIAR [facility] Address [address] [place] [address] Care Team Providers Care Endless Track Vehicle Supervisor Name Role Phone ERWIN AGUIAR Unavailable PROBLEMS Type Condition ICD9-CM Code [id number] Code Onset Dates Condition S tatus SNOMED Code Problem Screening examination for pulmonary tuberculosis V74.1 Active 927903138 Problem Impetigo 684 Active 55552477 Problem Ingrowing nail 703.0 Active 57372 7005 Problem Routine or child health check V20.2 Active 879587108 Problem Major depressive disorder, recurrent episode, moderate 296 .32 Active 35624123 Problem Bipolar disorder, unspecified 296.80 Active 95731898 Problem Generalized anxiety disorder 300.02 A ctive 76368361 Problem Acute sinusitis, unspecified 461.9 A ctive 10722266 Problem Unspecified episodic mood disorder 296.90 Active 183981784 Problem Autistic disorder, current or active state 299.00 Active 381970508 ALLERGIES No Known Allergies ENCOUNTERS Encounter Location Date Diagnosis [facility] [address] [id number] [address] [place] [address] Apr, Ingrowing nail with infectio n L60.0 [facility] [address] [id number] [address] [place] [address] Mar, Ingrown toenail of right abdoulaye t with infection L60.0 [facility] [id number] [address] [place] [address] Oct, Influenza J11.1 and Cough R0 5 [facility] [address] [id number] [address] [place] [address] Aug, Ingrown right greater toenai l L60.0 [facility] [id number] [place] [address] Aug, Ingrowing nail with infectio n L60.0 [facility] [address] [address] December, Nail, ingrown L60.0 [facility] [address] [address] 07 Sep, 2016 Influenza A J10.1 and Fever R50.9 [facility] [address] [address] Jun, Nail, ingrown L60.0 and Paro nychia, left L03.012 [place] [address] [address] Jun, [facility] [address] [address] Jun, Ingrowing left great toenail L60.0 and Ingrowing toenail with infection L60.0 [facility] [address] [address] May, Ingrowing toenail with infec tion L60.0 [facility] [place] [address] [address] 14 Apr, 2016 Coughing R05 [place] [address] [address] Oct, Encounter for PPD test Z11.1 [place] [address] [address] Sep, Encounter for PPD test Z11.1 [facility] N [address] [address] Aug, Acute viral conjunctivitis o f both eyes B30.9 [place] [address] [address] Jun, Encounter for immunization Z 23 [facility] [address] [id number] [address] [place] [address], [place] [address] 14 Nov, 2014 [facility] [address] [id number] [address] [place] [address], [place] [address] Nov, [facility] [address] [id number] [address] [place] [address], [place] [address] Oct, [facility] [address] [id number] [address] [place] [address], [place] [address] Oct, [facility] [address] [id number] [address] [place] [address], [place] [address] Oct, [facility] [address] [id number] [address] [place] [address], [place] [address] Oct, [facility] [address] [id number] [address] [place] [address], [place] [address] Oct, [facility] [address] [id number] [address] [place] [address] Oct, [facility] [address] [id number] [address] [place] [address], [place] [address] Oct, [facility] [address] [id number] [address] [place] [address] Oct, [facility] [address] [id number] [address] [place] [address], [place] [address] Oct, [facility] [address] [id number] [address] [place] [address] Oct, [facility] [address] [id number] [address] [place] [address], [place] [address] Sep, [facility] [address] [id number] [address] [place] [address], [place] [address] Sep, [facility] [address] [id number] [address] [place] [address], [place] [address] Aug, [facility] [address] [id number] [address] [place] [address], [place] [address] 30 Aug, 2014 [facility] [address] [id number] [address] [place] [address], [place] [address] Jul, [facility] [address] [id number] [address] [place] [address], [place] [address] Jul, [facility] [address] [id number] [address] [place] [address], [place] [address] Jul, [facility] [address] [id number] [address] [place] [address], [place] [address] Jul, [facility] [address] [id number] [address] [place] [address], [place] [address] Jun, [facility] [address] [id number] [address] [place] [address], [place] [address] Jun, [facility] [address] [id number] [address] [place] [address], [place] [address] May, [facility] [address] [id number] [address] [place] [address], [place] [address] May, [facility] [address] [id number] [address] [place] [address], [place] [address] May, [facility] [address] [id number] [address] [place] [address], [place] [address] May, [facility] [address] [id number] [address] [place] [address], [place] [address] Oct, [facility] [address] [id number] [address] [place] [address], [place] [address] Oct, [facility] [address] [id number] [address] [place] [address], [place] [address] Oct, [facility] [address] [id number] [address] [place] [address], [place] [address] Oct, [facility] [address] [id number] [address] [place] [address], [place] [address] Sep, [facility] [address] [id number] [address] [place] [address] Aug, [facility] [address] [id number] [address] [place] [address] Aug, [facility] [address] [id number] [address] [place] [address] Jun, [facility] [address] [id number] [address] [place] [address] Jun, [facility] [address] [id number] [address] [place] [address] May, [facility] [address] [id number] [address] [place] [address] May, [facility] [address] [id number] [address] [place] [address] Nov, IMMUNIZATIONS No Known Immunizations SOCIAL HISTORY Never Assessed REASON FOR VISIT right great toe pain for 10 days. stubbed it against a staircase. has appt with tomasz on 05/02/2018, but he thinks he needs an antibiotic beforehand. [email or web address] PLAN OF CARE Activity Details Follow Up prn Reason: VITAL SIGNS Height 71 in 2018-04-28 Weight 171.6 lbs 2018-04-28 Temperature 98.1 degrees Fahrenheit 2018-04-28 Heart Rate 84 bpm 2018-04-28 Respiratory Rate 20 2018-04-28 BMI 23.93 kg/m2 2018-04-28 Blood pressure systolic 122 mmHg 2018-04-28 Blood pressure diastolic 70 mmHg 2018-04-28 MEDICATIONS Medication Instructions Dosage Frequency Start Date End Date Duration S tatus Keflex 500 MG Orally every 8 hrs 1 capsule 8h Mar, 10 S ep, 2017 10 day(s) Active RESULTS No Results PROCEDURES No Known procedures INSTRUCTIONS MEDICATIONS ADMINISTERED No Known Medications MEDICAL (GENERAL) HISTORY Type Description Date Medical History autism Medical History depression
--- OUTSIDE RECORDS SUMMARY | 2020-02-18 22:34 | XMS REPORT ---
Author Author Tomasa GAGE Organization [facility] Address [address] [place] [address] Care Team Providers Care Hoop Driving Machine Operator Helper Name Role Phone RICHARD GAGE Unavailable PROBLEMS Type Condition ICD9-CM Code DMI25-HM Code Onset Dates Condition S tatus SNOMED Code Problem Screening examination for pulmonary tuberculosis V74.1 Active 847658886 Problem Impetigo 684 Active 12822941 Problem Ingrowing nail 703.0 Active 36892 7005 Problem Routine or child health check V20.2 Active 798945531 Problem Major depressive disorder, recurrent episode, moderate 296 .32 Active 99292914 Problem Bipolar disorder, unspecified 296.80 Active 66689120 Problem Generalized anxiety disorder 300.02 A ctive 64309357 Problem Acute sinusitis, unspecified 461.9 A ctive 41160575 Problem Unspecified episodic mood disorder 296.90 Active 108294253 Problem Autistic disorder, current or active state 299.00 Active 027254237 ALLERGIES No Known Allergies SOCIAL HISTORY Never Assessed PLAN OF CARE Activity Details Follow Up prn Reason: VITAL SIGNS Height 71 in 2016-10-05 Weight 158.4 lbs 2016-10-05 Temperature 99.0 degrees Fahrenheit 2016-10-05 Heart Rate 88 bpm 2016-10-05 Respiratory Rate 20 2016-10-05 BMI 22.09 kg/m2 2016-10-05 Blood pressure systolic 126 mmHg 2016-10-05 Blood pressure diastolic 76 mmHg 2016-10-05 MEDICATIONS Medication Instructions Dosage Frequency Start Date End Date Duration S tatus Tamiflu 75 MG Orally Twice a day 1 capsule 12h Sep, 5 day(s) Active RESULTS Name Result Date Reference Range INFLUENZA A & B (IN HOUSE) 2016-10-05 INFLUENZA A positive INFLUENZA B negative Control + Lot # [id number] Exp date 02 25 18 PROCEDURES Procedure Date Ordered Result Body Site INFLUENZA ASSAY W/OPTIC Oct 05, 2016 IMMUNIZATIONS No Known Immunizations MEDICAL (GENERAL) HISTORY Type Description Date Medical History autism Medical History depression
--- OUTSIDE RECORDS SUMMARY | 2020-02-18 22:34 | XMS REPORT ---
Author Author Tomasa KAUR [facility] Address [address] [place] [address] Care Team Providers Care Destination Imagination Coordinator Name Role Phone NNEKA KAUR Unavailable PROBLEMS Type Condition ICD9-CM Code WAQ19-KA Code Onset Dates Condition S tatus SNOMED Code Problem Screening examination for pulmonary tuberculosis V74.1 Active 633800599 Problem Impetigo 684 Active 22493437 Problem Ingrowing nail 703.0 Active 35555 7005 Problem Routine infant or child health check V20.2 Active 460642587 Problem Major depressive disorder, recurrent episode, moderate 296 .32 Active 09162941 Problem Bipolar disorder, unspecified 296.80 Active 18859441 Problem Generalized anxiety disorder 300.02 A ctive 74684907 Problem Acute sinusitis, unspecified 461.9 A ctive 92446220 Problem Unspecified episodic mood disorder 296.90 Active 093538691 Problem Autistic disorder, current or active state 299.00 Active 739842541 ALLERGIES No Known Allergies ENCOUNTERS Encounter Location Date Diagnosis [facility] [address] [id number] [address] [place] [address] Jun, Ingrown nail of great toe of right foot L60.0 [facility] [address] [id number] [address] [place] [address] Apr, Ingrowing nail with infectio n L60.0 [facility] [address] [id number] [address] [place] [address] Mar, Ingrown toenail of right abdoulaye t with infection L60.0 [facility] [address] [id number] [address] [place] [address] Oct, Influenza J11.1 and Cough R0 5 [facility] [address] [id number] [address] [place] [address] Aug, Ingrown right greater toenai l L60.0 [facility] [address] [address] Aug, Ingrowing nail with infectio n L60.0 [facility] [address] [address] December, Nail, ingrown L60.0 [facility] [address] [address] Sep, Influenza A J10.1 and Fever R50.9 [place] [address] [address] Jun, Nail, ingrown L60.0 and Paro nychia, left L03.012 [place] [address] [address] Jun, [facility] [address] [address] Jun, Ingrowing left great toenail L60.0 and Ingrowing toenail with infection L60.0 [place] [address] [address] May, Ingrowing toenail with infec tion L60.0 [facility] [address] [address] Apr, Coughing R05 [place] [address] [address] Oct, Encounter for PPD test Z11.1 [place] [address] [address] 24 Sep, 2015 Encounter for PPD test Z11.1 [facility] [address] [address] 06 Billy, 2016 Acute viral conjunctivitis o f both eyes B30.9 [facility] [address] [id number] [address] [place] [address] 18 Jun, 2015 Encounter for immunization Z 23 [facility] [address] [id number] [address] [place] [address] 14 Nov, 2014 [facility] [address] [id number] [address] [place] [address] 13 Nov, 2014 [facility] [place] [address] [id number] [address] [place] [address] Oct, [facility] [address] [id number] [address] [place] [address] Oct, [facility] [address] [id number] [address] [place] [address] Oct, [facility] [place] [address] [id number] [address] [place] [address] Oct, [facility] [place] [address] [id number] [address] [place] [address] Oct, [facility] [address] [id number] [address] [place] [address] Oct, [facility] [place] [address] [id number] [address] [place] [address] Oct, [facility] [place] [address] [id number] [address] [place] [address] Oct, [facility] [place] [address] [id number] [address] [place] [address] Oct, [facility] [address] [id number] [address] [place] [address] Oct, [facility] [place] [address] [id number] [address] [place] [address] Sep, [facility] [place] [address] [id number] [address] [place] [address] Sep, [facility] [address] [id number] [address] [place] [address], [place] [address] Aug, [facility] [address] [id number] [address] [place] [address], [place] [address] Aug, [facility] [address] [id number] [address] [place] [address], [place] [address] Jul, [facility] [address] [id number] [address] [place] [address], [place] [address] Jul, [facility] [address] [id number] [address] [place] [address], [place] [address] Jul, [facility] [address] [id number] [address] [place] [address], [place] [address] Jul, [facility] [address] [id number] [address] [place] [address], [place] [address] Jun, [facility] [address] [id number] [address] [place] [address], [place] [address] Jun, [facility] [address] [id number] [address] [place] [address], [place] [address] May, [facility] [address] [id number] [address] [place] [address], [place] [address] May, [facility] [address] [id number] [address] [place] [address], [place] [address] May, [facility] [address] [id number] [address] [place] [address], [place] [address] May, [facility] [address] [id number] [address] [place] [address], [place] [address] Oct, [facility] [address] [id number] [address] [place] [address], [place] [address] Oct, [facility] [address] [id number] [address] [place] [address], [place] [address] 15 Oct, 2011 [facility] [address] [id number] [address] [place] [address], [place] [address] Oct, [facility] [address] [id number] [address] [place] [address] Sep, [facility] [address] [id number] [address] [place] [address] Aug, [facility] [address] [facility] [id number] [address] [place] [address] Aug, [facility] [address] [id number] [address] [place] [address] Jun, [facility] [address] [facility] [id number] [address] [place] [address] Jun, [facility] [address] [facility] [id number] [address] [place] [address] May, [facility] [address] [facility] [id number] [address] [place] [address] May, [facility] [address] [facility] [id number] [address] [place] [address] Nov, IMMUNIZATIONS No Known Immunizations SOCIAL HISTORY Never Assessed REASON FOR VISIT Pt was given script for his infected toe on 04-28-18 he did not take it at that t lana then was seen on 05-02-18 and had the toe nail partially removed and 10 days a go it became infected he thinks and began taking the original medication for it. Pt presents with swelling to the right great toe which is having a bloody puss like discharge at this time .BRIGHT PLAN OF CARE Activity Details Follow Up prn Reason: VITAL SIGNS Height 71 in 2018-07-26 Weight 170 lbs 2018-07-26 Temperature 99.3 degrees Fahrenheit 2018-07-26 Heart Rate 94 bpm 2018-07-26 Respiratory Rate 16 2018-07-26 Oximetry 99 % 2018-07-26 BMI 23.71 kg/m2 2018-07-26 Blood pressure systolic 120 mmHg 2018-07-26 Blood pressure diastolic 68 mmHg 2018-07-26 MEDICATIONS No Known Medications RESULTS No Results PROCEDURES Procedure Date Ordered Result Body Site REMOVAL OF NAIL PLATE Jul 26, 2018 INSTRUCTIONS MEDICATIONS ADMINISTERED No Known Medications MEDICAL (GENERAL) HISTORY Type Description Date Medical History autism Medical History depression Surgical History No know Surgical history
--- OUTSIDE RECORDS SUMMARY | 2020-02-18 22:34 | XMS REPORT ---
Author Author Tomasa Albrecht Doctor Organization [facility] Address Unknown Phone Unavailable Care Team Providers Care Detective Supervisor Name Role Phone Migration, Doctor Unavailable Unavailable PROBLEMS Type Condition ICD9-CM Code [id number] Code Onset Dates Condition S tatus SNOMED Code Problem Generalized anxiety disorder F41.1 A ctive 04266257 Problem Cerebellar tremor G25.2 Active 30 535577 ALLERGIES No Information ENCOUNTERS Encounter Location Date Diagnosis [facility] [address] [address] Nov, [facility] [address] [address] Oct, Generalized anxiety disorder F41.1 and Cerebellar tremor G25.2 [facility] [id number] [address] [place] [address] Sep, [facility] [address] [address] Aug, Generalized anxiety disorder F41.1 [facility] [id number] [address] [place] [address] Jun, Ingrown nail of great toe of right foot L60.0 [facility] [address] [id number] [address] [place] [address] Apr, Ingrowing nail with infectio n L60.0 [facility] [address] [id number] [address] [place] [address] Mar, Ingrown toenail of right abdoulaye t with infection L60.0 [facility] [address] [id number] [address] [place] [address] Oct, Influenza J11.1 and Cough R0 5 [facility] [id number] [address] [place] [address] Aug, Ingrown right greater toenai l L60.0 [facility] [address] [address] Aug, Ingrowing nail with infectio n L60.0 [facility] [address] [address] December, Nail, ingrown L60.0 [facility] [address] [address] Sep, Influenza A J10.1 and Fever R50.9 [place] [address] [address] Jun, Nail, ingrown L60.0 and Paro nychia, left L03.012 [place] [address] [address] Jun, [facility] [address] [address] Jun, Ingrowing left great toenail L60.0 and Ingrowing toenail with infection L60.0 [facility] [id number] [place] [address] May, Ingrowing toenail with infec tion L60.0 [facility] [id number] [place] [address] Apr, Coughing R05 [place] [address] [address] Oct, Encounter for PPD test Z11.1 [place] [address] [address] 24 Sep, 2015 Encounter for PPD test Z11.1 [facility] [address] [address] Aug, Acute viral conjunctivitis o f both eyes B30.9 [facility] [address] [id number] [address] [place] [address] Jun, Encounter for immunization Z 23 [facility] [address] [id number] [address] [place] [address] 14 Nov, 2014 [facility] [address] [id number] [address] [place] [address] Nov, [facility] [address] [id number] [address] [place] [address] Oct, [facility] [address] [id number] [address] [place] [address] Oct, [facility] [address] [id number] [address] [place] [address] Oct, [facility] [address] [id number] [address] [place] [address] Oct, [facility] [address] [id number] [address] [place] [address] Oct, [facility] [address] [id number] [address] [place] [address] Oct, [facility] [address] [id number] [address] [place] [address] Oct, [facility] [address] [id number] [address] [place] [address] Oct, [facility] [address] [id number] [address] [place] [address] Oct, [facility] [address] [id number] [address] [place] [address] Oct, [facility] [address] [id number] [address] [place] [address] Sep, [facility] [address] [id number] [address] [place] [address] Sep, [facility] [address] [id number] [address] [place] [address], [place] [address] Aug, [facility] [address] [id number] [address] [place] [address], [place] [address] Aug, [facility] [address] [id number] [address] [place] [address], [place] [address] Jul, [facility] [address] [id number] [address] [place] [address], [place] [address] Jul, [facility] [address] [id number] [address] [place] [address], [place] [address] Jul, [facility] [address] [id number] [address] [place] [address], [place] [address] Jul, [facility] [address] [id number] [address] [place] [address], [place] [address] Jun, [facility] [address] [id number] [address] [place] [address], [place] [address] Jun, [facility] [address] [id number] [address] [place] [address], [place] [address] May, [facility] [address] [id number] [address] [place] [address], [place] [address] May, [facility] [address] [id number] [address] [place] [address], [place] [address] May, [facility] [address] [id number] [address] [place] [address], [place] [address] May, [facility] [address] [id number] [address] [place] [address], [place] [address] Oct, [facility] [address] [id number] [address] [place] [address], [place] [address] Oct, [facility] [address] [id number] [address] [place] [address], [place] [address] 15 Oct, 2011 [facility] [address] [id number] [place] [address] Oct, [facility] [address] [id number] [address] [place] [address] Sep, [facility] [address] [id number] [address] [place] [address] Aug, [facility] [address] [id number] [address] [place] [address] Aug, [facility] [address] [id number] [address] [place] [address] Jun, [facility] [address] [id number] [address] [place] [address] Jun, [facility] [address] [id number] [address] [place] [address] May, [facility] [address] [id number] [address] [place] [address] May, [facility] [address] [id number] [address] [place] [address] Nov, IMMUNIZATIONS No Known Immunizations SOCIAL HISTORY Never Assessed REASON FOR VISIT [facility] [place] PLAN OF CARE VITAL SIGNS MEDICATIONS Medication Instructions Dosage Frequency Start Date End Date Duration S tatus Bactroban 2 % 1 mario alberto by Topical route 2 times per day f or 14 day(s) Jul, Active MethylPREDNISolone 4 mg by Oral route for 6 days as directed per dose pack Oct, Active Cephalexin 500 mg take 1 tablet by Ora l route every 8 hours for 10 days Unitl Gone Jul, Active Keflex 500 mg take 1 capsule by Oral route 2 times per day for 10 days May, Active RESULTS No Results PROCEDURES No Known procedures INSTRUCTIONS MEDICATIONS ADMINISTERED No Known Medications MEDICAL (GENERAL) HISTORY Type Description Date Medical History autism Medical History depression Medical History anxiety Surgical History No Surgical history information
--- OUTSIDE RECORDS SUMMARY | 2020-02-18 22:34 | XMS REPORT ---
Author Author Tomasa RUDOLPH Organization [employer] Address Unknown Phone Unavailable Care Team Providers Care Final Tester Name Role Phone TRANG RUDOLPH CP Unavailable Allergies, Adverse Reactions, Alerts Substance Reaction Event Type N.K.D.A. Info Not Available Non Drug Allergy Problems Problem Type Condition Code Onset Dates Condition Statu s Problem Bipolar disorder, unspecified 296.80 Active Problem Routine or child health check V20.2 Active Problem Ingrowing nail 703.0 Active Assessment Acute viral conjunctivitis of both eyes B30.9 Active Problem Unspecified episodic mood disorder 296.90 Active Problem Impetigo 684 Active Problem Screening examination for pulmonary tuberculosis V74.1 Active Problem Generalized anxiety disorder 300.02 Active Problem Acute sinusitis, unspecified 461.9 Active Problem Autistic disorder, current or active state 299.00 Active Problem Major depressive disorder, recurrent episode, moderate 296.32 Active Medications Medication Code System Code Instructions Start Date End Date Status Dosage Vyvanse [facility] [place] [address]-79 30 MG Orally Once a day 1 capsule in the morning Adderall [facility] [place] [address]-74 5 MG Orally Once a day 1 tablet in the morning Benadryl [facility] [place] [address]-13 25 MG Orally every 6 hrs Sep 03, 2015 Sep 13, 2015 1 tablet as needed HydrOXYzine HCl [facility] [place] [address]-75 25 MG Orally every 8 hrs 1 tablet as needed Zaditor [facility] [place] [address]-86 0.025 % Ophthalmic Twice a day Sep 03 6 1 drop into affected eye Procedures Procedure Coding System Code Date Office Visit, Est Pt., Level 3 CPT-4 61400 J 2015 Vital Signs Date/Time: Sep 03, 2015 Temperature 978 F BMIPercentile 61.04 % Weight 161. lbs Height 71 in BMI 22.45 Index Blood Pressure Diastolic 64 mmHg Blood Pressure Systolic 110 mmHg Cardiac Monitoring Heart Rate 68 bpm Wt Percentile 71.58 % Ht Percentile 73.42 % Results No Known Results Summary Purpose [employer] Submission
--- OUTSIDE RECORDS SUMMARY | 2020-02-18 22:35 | XMS REPORT ---
Author Author [facility] Organization [facility] Address [address] [place] [address] Phone Care Team Providers Care Third Miller Name Role Phone Alexandria Crespo PP Unavailable Celso Hughes MD PP Unavailable Problems Name Dates Details Asthma (Renamed from Airway hyperreactiv ity) (493.90, J45.909) Status: Active Allergic rhinitis (477.9, J30.9) Status: Active Toe pain, right (729.5) Status: Active Medications Name Dates Details CEPHALEXIN, 500MG (Oral Capsule) 1 (one) Capsule three times daily for 0 days Quantity: 30 Ordered : Alexandria Crespo * Started Active ADVAIR HFA, 230-21MCG/ACT (Inhalation Aerosol) 2 (two) Aerosol BID for 0 days * Quantity: 1 Refills: 12 Ordered : Alexandria Crespo * Started Ended Inactive Comments: please dispense spacer with the MDI GEOFF, 60MG (Oral Tablet) - Historical Medication 1 daily Inactive DIVALPROEX SODIUM, 250MG (Oral Tablet Extended Release 24 Hour) - Historical Med ication 1 two times daily Inactive LEXAPRO, 10MG (Oral Tablet) - Historical Medication 1 daily Inactive METHYLPHENIDATE HCL, 27MG (Oral Tablet Extended Release) - Historical Medication 2 daily Inactive Allergies and Adverse Reactions Name Dates Details Dust Status: Active No Known Drug Allergies Onset: Status: Active Past Medical History Name Dates Details None (Past Surgical History) Onset: Status: Active Family History Name Dates Details asthma-paternal aunt and uncle Status: Active Depression Status: Active Vital Signs Date Test Result Details 11:50 Temperature 98.2 F Comments: Method: T emporal Pulse 100 /min Comments: Pattern: Regular BP Systolic 108 mm[Hg] Comments: Patient P osition: Sitting; Cuff Location: Left Arm; Cuff Size: Standard BP Diastolic 66 mm[Hg] Comments: Patient P osition: Sitting; Cuff Location: Left Arm; Cuff Size: Standard Weight 145.0000 lb Height 69.50 in 11:39 Temperature 98.4 F Comments: Method: T emporal Pulse 120 /min Comments: Pattern: Regular BP Systolic 120 mm[Hg] Comments: Patient P osition: Sitting; Cuff Location: Left Arm; Cuff Size: Standard BP Diastolic 64 mm[Hg] Comments: Patient P osition: Sitting; Cuff Location: Left Arm; Cuff Size: Standard Weight 105.7500 lb Height 62.50 in Results No Known Results Advance Directives No Advance Directives available. Insurance * Esequiel Carey ; a guarantor * [facility] Medical Assistance Prog
--- OUTSIDE RECORDS SUMMARY | 2020-02-18 22:35 | XMS REPORT | Continuity of Care Document ---
Author Organization Unknown Address Unknown Phone Unavailable Allergies Active Description Code Type Severity Reaction Onset Reported/Identified Relationship to Patient Clinical Status Yes No Known Drug Allergies [id number] Drug Allergy Unknown N/A 01/17/2012 Medications There is no data. Problems Date Dx Coded Attending Type Code Diagnosis Diagnosed By 10/22/2010 ISAAC HERNANDEZ DO 314.01 ADHD COMBINED 10/22/2010 OSMANI CHAN MD 314. 01 ADHD COMBINED 10/22/2010 RAFAELA HEALY APRN 314.01 ADHD COMBINED 10/22/2010 NATALIE MELTON APRN A 314.01 ADHD COMBINED 10/22/2010 NATALIE MELTON APRN A 314.01 ADHD COMBINED 10/22/2010 ANTONINO TORRE MD 314.0 1 ADHD COMBINED 10/22/2010 LINH CENTENO NATALIE A 314.01 ADHD COMBINED 11/11/2010 ISAAC HERNANDEZ DO K 311 DEPRESSIVE DISORDER NOS 11/11/2010 OSMANI CHAN MD 311 DEPRESSIVE DISORDER NOS 11/11/2010 RAFAELA HEALY APRN 31 1 DEPRESSIVE DISORDER NOS 11/11/2010 LINH CENTENO NATALIE A 311 DEPRESSIVE DISORDER NOS 11/11/2010 JCARLOS MELTON APRNYL A 311 DEPRESSIVE DISORDER NOS 11/11/2010 ANTONINO TORRE MD 311 DEPRESSIVE DISORDER NOS 11/11/2010 JCARLOS MELTON APRNYL A 311 DEPRESSIVE DISORDER NOS 12/16/2010 ISAAC HERNANDEZ DO 300.00 AN ANXIETY UNSPEC 12/16/2010 OSMANI CHAN MD 300. 00 AN ANXIETY UNSPEC 12/16/2010 RAFAELA HEALY APRN 300.00 AN ANXIETY UNSPEC 12/16/2010 NATALIE MELTON APRN A 300.00 AN ANXIETY UNSPEC 12/16/2010 JCARLOS MELTON APRNYL A 300.00 AN ANXIETY UNSPEC 12/16/2010 ANTONINO TORRE MD 300.0 0 AN ANXIETY UNSPEC 12/16/2010 JCARLOS MELTON APRNYL A 300.00 AN ANXIETY UNSPEC 12/25/2010 ISAAC HERNANDEZ DO K V58.69 MEDICATION HIGH RISK 12/25/2010 OSMANI CHAN MD V58. 69 MEDICATION HIGH RISK 12/25/2010 RAFAELA HEALY APRN V58.69 MEDICATION HIGH RISK 12/25/2010 RAJOTTE DATA CONVERSION ANALYST, NATALIE A V58.69 MEDICATION HIGH RISK 12/25/2010 RAJOTTE DATA CONVERSION ANALYST, NATALIE A V58.69 MEDICATION HIGH RISK 12/25/2010 ANTONINO TORRE MD V58.6 9 MEDICATION HIGH RISK 12/25/2010 RAJOTTE DATA CONVERSION ANALYST, NATALIE A V58.69 MEDICATION HIGH RISK 03/17/2011 ISAAC HERNANDEZ DO K 296.80 MO BIPOLAR NOS 03/17/2011 OSMANI CHAN MD 296. 80 MO BIPOLAR NOS 03/17/2011 RAFAELA HEALY APRN 296.80 MO BIPOLAR NOS 03/17/2011 RAJOTTE DATA CONVERSION ANALYST, NATALIE A 296.80 MO BIPOLAR NOS 03/17/2011 RAJOTTE DATA CONVERSION ANALYST, NATALIE A 296.80 MO BIPOLAR NOS 03/17/2011 ANTONINO TORRE MD 296.8 0 MO BIPOLAR NOS 03/17/2011 RAJOTTE DATA CONVERSION ANALYST, NATALIE A 296.80 MO BIPOLAR NOS 03/29/2011 ISAAC HERNANDEZ DO K 372.30 CONJUNCTIVITIS UNSPECIFIED 03/29/2011 OSMANI CHAN MD 372. 30 CONJUNCTIVITIS UNSPECIFIED 03/29/2011 RAFAELA HEALY APRN 372.30 CONJUNCTIVITIS UNSPECIFIED 03/29/2011 RAJCRISTELE DATA CONVERSION ANALYST, NATALIE A 372.30 CONJUNCTIVITIS UNSPECIFIED 03/29/2011 NIKKIE TARYN, NATALIE A 372.30 CONJUNCTIVITIS UNSPECIFIED 03/29/2011 ANTONINO TORRE MD 372.3 0 CONJUNCTIVITIS UNSPECIFIED 03/29/2011 RAJOTTE DATA CONVERSION ANALYST, NATALIE A 372.30 CONJUNCTIVITIS UNSPECIFIED 05/05/2011 ISAAC HERNANDEZ DO V70.3 SPORTS/SCHOOL EXAM 05/05/2011 OSMANI CHAN MD V70. 3 SPORTS/SCHOOL EXAM 05/05/2011 RAFAELA HEALY APRN V7 0.3 SPORTS/SCHOOL EXAM 05/05/2011 NIKKIE JCARLOS CENTENOYL A V70.3 SPORTS/SCHOOL EXAM 05/05/2011 NIKKIE TARYN NATALIE A V70.3 SPORTS/SCHOOL EXAM 05/05/2011 ANTONINO TORRE MD V70.3 SPORTS/SCHOOL EXAM 05/05/2011 LINH CENTENO, NATALIE A V70.3 SPORTS/SCHOOL EXAM 07/19/2011 SARAH HERNANDEZ DOA K 296.90 MOOD DISORDER NOS 07/19/2011 MARY GODINEZ ISAAC K 299.80 DV ASPERGERS 07/19/2011 OSMANI CHAN MD 296. 90 MOOD DISORDER NOS 07/19/2011 OSMANI CHAN MD 299. 80 DV ASPERGERS 07/19/2011 RAFAELA HEALY APRN 296.90 MOOD DISORDER NOS 07/19/2011 RAFAELA HEALY APRN 299.80 DV ASPERGERS 07/19/2011 LINH CENTENO, NATALIE A 296.90 MOOD DISORDER NOS 07/19/2011 LINH CENTENO, NATALIE A 299.80 DV ASPERGERS 07/19/2011 LINH CENTENO, NATALIE A 296.90 MOOD DISORDER NOS 07/19/2011 LINH CENTENO, NATALIE A 299.80 DV ASPERGERS 07/19/2011 ANTONINO TORRE MD 296.9 0 MOOD DISORDER NOS 07/19/2011 ANTONINO TORRE MD 299.8 0 DV ASPERGERS 07/19/2011 LINH CENTENO, NATALIE A 296.90 MOOD DISORDER NOS 07/19/2011 LINH CENTENO, NATALIE A 299.80 DV ASPERGERS 09/16/2011 SARAH HERNANDEZ DOA K 300.02 AN GEN ANXIETY 09/16/2011 RUSSEL CHAN MDISTA 300. 02 AN GEN ANXIETY 09/16/2011 RAFAELA HEALY APRN 300.02 AN GEN ANXIETY 09/16/2011 LINH CENTENO, NATALIE A 300.02 AN GEN ANXIETY 09/16/2011 LINH CENTENO, NATALIE A 300.02 AN GEN ANXIETY 09/16/2011 ANTONINO TORRE MD 300.0 2 AN GEN ANXIETY 09/16/2011 LINH CENTENO, NATALIE A 300.02 AN GEN ANXIETY 01/17/2012 Ot 728.85 11/15/2013 ISAAC HERNANDEZ DO K 461.9 SINUSITIS ACUTE 11/15/2013 OSMANI CHAN MD 461. 9 SINUSITIS ACUTE 11/15/2013 RAFAELA HEALY APRN 46 1.9 SINUSITIS ACUTE 11/15/2013 LINH CENTENO, NATALIE A 461.9 SINUSITIS ACUTE 11/15/2013 LINH CENTENO, NATALIE A 461.9 SINUSITIS ACUTE 11/15/2013 ANTONINO TORRE MD 461.9 SINUSITIS ACUTE 11/15/2013 LINH DATA CONVERSION ANALYST, NATALIE A 461.9 SINUSITIS ACUTE 06/26/2014 DUSTIN ZIMMER, OSMANI 703. 0 INGROWING NAIL 06/26/2014 NIRAJ CENTENO, RAFAELA Awad 70 3.0 INGROWING NAIL 06/26/2014 LINH CENTENO, NATALIE A 703.0 INGROWING NAIL 06/26/2014 LINH CENTENO, NATALIE A 703.0 INGROWING NAIL 06/26/2014 ANTONINO TORRE MD 703.0 INGROWING NAIL 06/26/2014 LINH CENTENO, NATALIE A 703.0 INGROWING NAIL 08/07/2014 LINH CENTENO, NATALIE A V74.1 TB SCREENING 08/07/2014 LINH CENTENO, NATALIE A V74.1 TB SCREENING 08/07/2014 ANTONINO TORRE MD V74.1 TB SCREENING 08/07/2014 LINH CENTENO, NATALIE A V74.1 TB SCREENING 08/13/2014 LINH CENTENO, NATALIE A 684 IMPETIGO 08/13/2014 ANTONINO TORRE MD 684 IMPETIGO 08/13/2014 LINH CENTENO, NATALIE A 684 IMPETIGO 09/27/2014 ANTONINO TORRE MD 296.8 0 MO BIPOLAR NOS 09/27/2014 LINH CENTENO, NATALIE A 296.80 MO BIPOLAR NOS 10/07/2014 YOLI DO, SUZIE K Ot 842.00 10/07/2014 YOLI DO, SUZIE K Ot 847.0 10/07/2014 YOLI GODINEZ, SUZIE K Ot 920 10/07/2014 YOLI DO, SUIZE K Ot E000.8 10/07/2014 YOLI GODINEZ, SUZIE K Ot E968.9 10/17/2014 ANTONINO TORRE MD 296.3 2 MO DEPRESSIVE RECURRENT MODERATE 10/17/2014 ANTONINO TORRE MD 299.0 0 AUTISTIC DISORDER CURRENT OR ACTIVE STATE 10/17/2014 NATALIE MELTON APRN 296.32 MO DEPRESSIVE RECURRENT MODERATE 10/17/2014 NATALIE MELTON APRN A 299.00 AUTISTIC DISORDER CURRENT OR ACTIVE STATE 10/18/2014 Ot 299.80 10/18/2014 Ot 311 10/18/2014 Ot 969.4 10/18/2014 Ot E849.0 10/18/2014 Ot E950.3 11/07/2014 ANTONINO TORRE MD 296.9 0 MOOD DISORDER NOS 11/07/2014 JCARLOS MELTON APRNYL Munir 296.90 MOOD DISORDER NOS 11/20/2014 NATALIE MELTON APRN V20.2 WELL CHILD (>28 DAYS OLD) Procedures Code Description Performed By Per formed On FAMILY NC RAFAELA HEALY 06/27/2014 61174 CULT URE WOUND (AEROBIC) 06/28/2014 69415 LAINE FAM OF NAIL BED 07/23/2014 94836 TB T EST INTRADERMAL 08/07/2014 29004 PURE TONE HEARING TEST AIR 11/20/2014 52136 VISU AL ACUITY SCREEN 11/20/2014 Results There is no data. Encounters ACCT No. Visit Date/Time Discharge Status Pt. Type Provider Facility Loc./Unit Complaint [id number] 11/20/2014 11:23:00 11/20/2014 23:59: 59 CLS Outpatient JCARLOS MELTON APRNYOANA Amaral [id number] 11/11/2014 12:41:00 11/11/2014 23:59: 59 CLS Outpatient ANTONINO TORRE MD [id number] 08/13/2014 09:34:00 08/13/2014 23:59: 59 CLS Outpatient LINH JERONIMONATALIE Jain [id number] 08/07/2014 10:55:00 08/07/2014 23:59: 59 CLS Outpatient GURVINDERCRISTELAnnalisa NATALIE CENTENO [id number] 07/23/2014 15:35:00 07/23/2014 23:59: 59 CLS Outpatient RAFAELA HEALY APRN [id number] 06/26/2014 14:51:00 06/26/2014 23:59: 59 CLS Outpatient OSMANI CHAN MD [id number] 11/15/2013 11:10:00 11/15/2013 23:59: 59 [place] [id number] 03/16/2019 12:40:00 03/16/2019 23:59:5 9 CLS Outpatient YELITZA ZIMMER, [facility] [id number] 10/07/2014 00:32:00 015 01:50:00 DIS Emergency SUZIE KENT DO [facility] [id number] 10/17/2014 22:50:00 Document Registration [id number] 01/17/2012 15:29:00 Document Registration
--- OUTSIDE RECORDS SUMMARY | 2020-02-18 22:35 | XMS REPORT ---
Author Author [facility] Organization [facility] Address [address] [place] [address] Phone Care Team Providers Care Digital Media Planner Name Role Phone Alexandria Crespo PP Unavailable Celso Hughes MD PP Unavailable Problems Name Dates Details Asthma (Renamed from Airway hyperreactiv ity) (493.90, J45.909) Status: Active Allergic rhinitis (477.9, J30.9) Status: Active Toe pain, right (729.5) Status: Active Medications Name Dates Details ADVAIR HFA, 230-21MCG/ACT (Inhalation Ae rosol) 2 (two) Aerosol BID for 0 days Quantity: 1 Ordered : Alexandria Crespo * Started Active Comments: please dispense spacer with the MDI GEOFF, 60MG (Oral Tablet) - Historical Medication 1 daily Active CEPHALEXIN, 500MG (Oral Capsule) 1 (one) Capsule three times daily for 0 days * Quantity: 30 Refills: 0 Ordered : Alexandria Crespo * Started Active DIVALPROEX SODIUM, 250MG (Oral Tablet Extended Release 24 Hour) - Historical Med ication 1 two times daily Active LEXAPRO, 10MG (Oral Tablet) - Historical Medication 1 daily Active METHYLPHENIDATE HCL, 27MG (Oral Tablet Extended Release) - Historical Medication 2 daily Active Allergies and Adverse Reactions Name Dates Details Dust Status: Active No Known Drug Allergies Onset: Status: Active Past Medical History Name Dates Details None (Past Surgical History) Onset: Status: Active Family History Name Dates Details asthma-paternal aunt and uncle Status: Active Depression Status: Active Vital Signs Date Test Result Details 11:39 Temperature 98.4 F Comments: Method: T [...] Directives available. Insurance * Esequiel Carey ; keyur guarantor * [employer] [facility]
[2020-02-18 23:29] LABS: BASOPHILS % (AUTO) 0 % (0-10); EOSINOPHILS # (AUTO) 0.3 10^3/uL (0.0-0.3); EOSINOPHILS % (AUTO) 3 % (0-10); HEMATOCRIT 43 % (40-54); HEMOGLOBIN 15.5 G/DL (13.3-17.7); LYMPHOCYTES # (AUTO) 1.4 X 10^3 (1.0-4.0); LYMPHOCYTES % (AUTO) 14 % (12-44); MEAN CORPUSCULAR HEMOGLOBIN 30 PG (25-34); MEAN CORPUSCULAR HGB CONC 36 G/DL (32-36); MEAN CORPUSCULAR VOLUME 83 FL (80-99); MEAN PLATELET VOLUME 9.2 FL (7.4-10.4); MONOCYTES # (AUTO) 0.7 X 10^3 (0.0-1.0); MONOCYTES % (AUTO) 7 % (0-12); NEUTROPHILS # (AUTO) 7.3 X 10^3 (1.8-7.8); NEUTROPHILS % (AUTO) 76 % (42-75); PLATELET COUNT 292 10^3/uL (130-400); RED CELL DISTRIBUTION WIDTH 12.7 % (10.0-14.5); WHITE BLOOD COUNT 9.6 10^3/uL (4.3-11.0)
[2020-02-18 23:43] LABS: ALBUMIN 4.6 GM/DL (3.2-4.5); CHLORIDE 105 MMOL/L (98-107); POTASSIUM 3.9 MMOL/L (3.6-5.0); SODIUM 140 MMOL/L (135-145)
[2020-02-18 23:44] LABS: CALCIUM 9.7 MG/DL (8.5-10.1)
[2020-02-18 23:45] LABS: GLUCOSE 81 MG/DL (70-105)
[2020-02-18 23:46] LABS: CARBON DIOXIDE 25 MMOL/L (21-32); TOTAL PROTEIN 7.3 GM/DL (6.4-8.2)
[2020-02-18 23:47] LABS: BILIRUBIN,TOTAL 0.4 MG/DL (0.1-1.0)
[2020-02-18 23:49] LABS: ALKALINE PHOSPHATASE 47 U/L (40-136); CREATININE SERUM 0.92 MG/DL (0.60-1.30); GFR ESTIMATED > 60
[2020-02-18 23:50] LABS: BUN/CREATININE RATIO 14
[2020-02-18 23:52] LABS: ALANINE AMINOTRANSFERASE 21 U/L (0-55); SALICYLATE < 5.0 MG/DL (5.0-20.0)
[2020-02-18 23:54] LABS: BILIRUBIN,URINE NEGATIVE (NEGATIVE); CLARITY,URINE CLEAR; COLOR,URINE YELLOW; GLUCOSE, URINE (UA) NEGATIVE (NEGATIVE); KETONES,URINE NEGATIVE (NEGATIVE); LEUKOCYTE ESTERASE ,URINE NEGATIVE (NEGATIVE); NITRITE,URINE NEGATIVE (NEGATIVE); PROTEIN,URINE NEGATIVE (NEGATIVE)
[2020-02-19 00:01] LABS: ACETAMINOPHEN < 10 UG/ML (10-30)
[2020-02-19 00:03] LABS: BACTERIA,URINE NEGATIVE /HPF
[2020-02-19 00:10] LABS: AMPHETAMINE SCREEN, URINE NEGATIVE (NEGATIVE); BARBITURATE SCREEN URINE NEGATIVE (NEGATIVE); BENZODIAZEPINES SCREEN URINE NEGATIVE (NEGATIVE); CANNABINOID SCREEN, URINE POSITIVE (NEGATIVE); COCAINE SCREEN URINE NEGATIVE (NEGATIVE); METHADONE STAT NEGATIVE (NEGATIVE); METHAMPHETAMINE SCREEN URINE S NEGATIVE (NEGATIVE); OPIATE SCREEN URINE NEGATIVE (NEGATIVE); OXYCODONE STAT NEGATIVE (NEGATIVE); PROPOXYPHENE STAT NEGATIVE (NEGATIVE); TRICYCLIC ANTIDEPRESSANTS SCRE NEGATIVE (NEGATIVE)
[2020-02-19 00:12] LABS: TSH (THYROID ANALYZER) 1.13 UIU/ML (0.35-4.94)
--- NOTE | 2020-02-19 00:54 | ED Psychosocial ---
General Chief Complaint: Psych/Social Disorder Stated Complaint: PSYCH EVAL Nursing Triage Note: PT AMBULATE TO ROOM WITH C/O SUICIDAL THOUGHTS. PT STATES THAT HE WANTED TO TAKE SOME INSULIN THAT HIS FIANCE'S FRIEND HAD LEFT IN HIS REFRIGERATOR. Source: patient History of Present Illness Date Seen by Provider: Feb 18, 2020 Time Seen by Provider: 23:00 Initial Comments PT ARRIVES VIA POV FROM HOME C/O SUICIDAL IDEATIONS PLAN IS TO USE A FRIEND'S INSULIN AND GO TO SLEEP AND NOT WAKE UP HAS LONG STANDING HISTORY OF MENTAL HEALTH ISSUES, AND HAS HAD MULTIPLE PSYCH ADMITS SINCE ADOLESCENCE PT STATES SHE HAS NOT SEEN ANYONE FOR MENTAL HEALTH FOR A LONG TIME. HAD BEEN ON SERTRALINE AND ZOLOFT, BUT QUIT TAKING THEM 3 WEEKS AGO--JUST DIDN'T FEEL LIKE TAKING THEM ANYMORE HAS HAD INCREASING THOUGHTS OF SUICIDE, BUT NOT ACTUALLY MADE ANY ATTEMPT HAS OVERDOSED AND CUT HIS WRIST IN THE PAST PT DENIES ANY SPECIFIC TRIGGER, BUT FEELS LIKE HE HAS REALLY BEEN STRESSED LATELY. HAS NOT SOUGHT CARE AT ANY TIME RECENTLY FOR THIS ISSUE PT STATES "I'M EMOTIONALLY DESTABILIZED" "I'VE BEEN OSCILLATING BETWEEN 2 POLES--I'M EXTREMELY HAPPY AND CAPABLE OF BEING A GOOD PERSON AND OTHER TIMES, I'M NOT WANTING TO DO ANYTHING" STATES THIS IS A CHRONIC PROBLEM FOR YEARS STATES "IT WAS A CATALYST" "LIKE THE INSULIN AND WANTING TO NOT WAKE UP" STATES "I'VE JUST BEEN LOOKING AT EVERYTHING IN [place] AND FROM HEAD TO TOE" "AND I'VE BEEN REALLY STRESSED" STATES SYMPTOMS ARE NOT ANY DIFFERENT TODAY, BUT HAS BEEN GETTING WORSE PCP: [facility] Allergies and Home Medications Allergies Coded Allergies: No Known Drug Allergies (Unverified , 01/17/12) Home Medications Sertraline Hcl 50 Mg Tablet, 50 MG PO DAILY, (Reported) Patient Home Medication List Home Medication List Reviewed: Yes Review of Systems Constitutional: no symptoms reported; No chills, No diaphoresis, No dizziness, No fever, No malaise, No weakness EENTM: no symptoms reported; No nose congestion, No throat pain Respiratory: no symptoms reported; No cough, No short of breath Cardiovascular: no symptoms reported; No chest pain Gastrointestinal: no symptoms reported; No abdominal pain, No diarrhea, No nausea, No vomiting Genitourinary: no symptoms reported Musculoskeletal: no symptoms reported Skin: no symptoms reported Psychiatric/Neurological: See HPI, Anxiety, Depressed, Emotional Problems; Denies Headache, Denies Numbness, Denies Paresthesia, Denies Seizure, Denies Tingling, Denies Tremors, Denies Weakness Past Mqohdgx-Dgbxen-Nnoxws Hx Past Med/Social Hx: Reviewed and Corrections made Patient Social History Alcohol Use: Denies Use Recreational Drug Use: Yes (THC) Drug of Choice: THC Smoking Status: Never a Smoker 2nd Hand Smoke Exposure: No Recent Foreign Travel: No Contact w/Someone Who Travel: No Recent Infectious Disease Expo: No Physical Abuse: No Sexual Abuse: No Mistreated: No Fear: No Immunizations Up To Date PED Vaccines UTD: Yes Date of Influenza Vaccine: Jul 16, 2014 Seasonal Allergies Seasonal Allergies: No Past Medical History Surgeries: No Respiratory: No Cardiac: No Neurological: No Gastrointestinal: No Musculoskeletal: No Endocrine: No Cancer: No Psychosocial: Yes (MOOD DISORDER; OD'S AND CUT WRISTS; PSYCH ADMITS. ) Anxiety, Suicide Attempts, Depression Integumentary: No Blood Disorders: No Adverse Reaction/Blood Tranf: No Family Medical History Completed stroke GRANDMOTHER FH: breast cancer GRANDMOTHER Physical Exam Vital Signs - First Documented 02/18/20 02/19/20 23:17 05:18 Temp 36.9 Pulse 88 Resp 18 B/P (MAP) 136/82 (100) Pulse Ox 97 O2 Delivery Room Air Capillary Refill : Less Than 3 Seconds Height, Weight, BMI Height: 5'11.00" Weight: 154lbs. 7.0oz. 70.516830sq; 27.00 BMI Method:Stated General Appearance: WD/WN, no apparent distress, other (TALKATIVE, NON-CHALANT, COOPERATIVE, PLEASANT. MALODOROUS) HEENT: PERRL/EOMI Neck: normal inspection Respiratory: normal breath sounds, no respiratory distress, no accessory muscle use Cardiovascular: regular rate, rhythm, no murmur Gastrointestinal: non tender, soft Extremities: normal inspection, normal capillary refill Neurologic/Psychiatric: cutting inspector II-XII nml as tested, no motor/sensory deficits, alert, normal mood/affect, oriented x 3 Appearance/Memory: appropriate insight, no memory impairment Behavior/Eye Contact: cooperative, good eye contact, normal speech Thoughts/Hallucinations: no apparent hallucination Skin: normal color, warm/dry; No rash Progress/Results/Core Measures Results/Orders Lab Results Laboratory Tests Test 02/18/20 23:20 02/18/20 23:46 Range/Units White Blood Count 9.6 4.3-11.0 10^3/uL Red Blood Count 5.12 4.35-5.85 10^6/uL Hemoglobin 15.5 13.3-17.7 G/DL Hematocrit 43 40-54 % Mean Corpuscular Volume 83 80-99 FL Mean Corpuscular Hemoglobin 30 25-34 PG Mean Corpuscular Hemoglobin Concent 36 32-36 G/DL Red Cell Distribution Width 12.7 10.0-14.5 % Platelet Count 292 130-400 10^3/uL Mean Platelet Volume 9.2 7.4-10.4 FL Neutrophils (%) (Auto) 76 H 42-75 % Lymphocytes (%) (Auto) 14 12-44 % Monocytes (%) (Auto) 7 0-12 % Eosinophils (%) (Auto) 3 0-10 % Basophils (%) (Auto) 0 0-10 % Neutrophils # (Auto) 7.3 1.8-7.8 X 10^3 Lymphocytes # (Auto) 1.4 1.0-4.0 X 10^3 Monocytes # (Auto) 0.7 0.0-1.0 X 10^3 Eosinophils # (Auto) 0.3 0.0-0.3 10^3/uL Basophils # (Auto) 0.0 0.0-0.1 10^3/uL Sodium Level 140 135-145 MMOL/L Potassium Level 3.9 3.6-5.0 MMOL/L Chloride Level 105 98-107 MMOL/L Carbon Dioxide Level 25 21-32 MMOL/L Anion Gap 10 5-14 MMOL/L Blood Urea Nitrogen 13 7-18 MG/DL Creatinine 0.92 0.60-1.30 MG/DL Estimat Glomerular Filtration Rate > 60 BUN/Creatinine Ratio 14 Glucose Level 81 70-105 MG/DL Calcium Level 9.7 8.5-10.1 MG/DL Corrected Calcium 8.5-10.1 MG/DL Total Bilirubin 0.4 0.1-1.0 MG/DL Aspartate Amino Transf (AST/SGOT) 23 5-34 U/L Alanine Aminotransferase (ALT/SGPT) 21 0-55 U/L Alkaline Phosphatase 47 40-136 U/L Total Protein 7.3 6.4-8.2 GM/DL Albumin 4.6 H 3.2-4.5 GM/DL TSH Russell Testing 1.13 0.35-4.94 UIU/ML Salicylates Level < 5.0 L 5.0-20.0 MG/DL Acetaminophen Level < 10 L 10-30 UG/ML Serum Alcohol < 10 <10 MG/DL Urine Color YELLOW Urine Clarity CLEAR Urine pH 7.0 5-9 Urine Specific [place] 1.010 L 1.016-1.022 Urine Protein NEGATIVE NEGATIVE Urine Glucose (UA) NEGATIVE NEGATIVE Urine Ketones NEGATIVE NEGATIVE Urine Nitrite NEGATIVE NEGATIVE Urine Bilirubin NEGATIVE NEGATIVE Urine Urobilinogen 0.2 < = 1.0 MG/DL Urine Leukocyte Esterase NEGATIVE NEGATIVE Urine RBC (Auto) NEGATIVE NEGATIVE Urine RBC NONE /HPF Urine WBC NONE /HPF Urine Squamous Epithelial Cells NONE /HPF Urine Crystals NONE /LPF Urine Bacteria NEGATIVE /HPF Urine Casts NONE /LPF Urine Mucus NEGATIVE /LPF Urine Culture Indicated NO Urine Opiates Screen NEGATIVE NEGATIVE Urine Oxycodone Screen NEGATIVE NEGATIVE Urine Methadone Screen NEGATIVE NEGATIVE Urine Propoxyphene Screen NEGATIVE NEGATIVE Urine Barbiturates Screen NEGATIVE NEGATIVE Ur Tricyclic Antidepressants Screen NEGATIVE NEGATIVE Urine Phencyclidine Screen NEGATIVE NEGATIVE Urine Amphetamines Screen NEGATIVE NEGATIVE Urine Methamphetamines Screen NEGATIVE NEGATIVE Urine Benzodiazepines Screen NEGATIVE NEGATIVE Urine Cocaine Screen NEGATIVE NEGATIVE Urine Cannabinoids Screen POSITIVE H NEGATIVE My Orders Orders - SUZIE KENT DO Urinalysis (02/18/20 22:59) Thyroid Analyzer (02/18/20 22:59) Drug Screen Stat (Urine) (02/18/20 22:59) Cbc With Automated Diff (02/18/20 22:59) Comprehensive Metabolic Panel (02/18/20 22:59) Alcohol (02/18/20 22:59) Acetaminophen (02/18/20 22:59) Salicylate (02/18/20 22:59) Ekg Tracing (02/18/20 22:59) Vital Signs/I&O 02/18/20 02/19/20 23:17 05:18 Temp 36.9 36.5 Pulse 88 96 Resp 18 18 B/P (MAP) 136/82 (100) 148/76 (100) Pulse Ox 97 O2 Delivery Room Air Room Air Blood Pressure Mean: 100 Progress Progress Note : Progress Note UNEVENTFUL ER STAY Initial ECG Impression Date: Feb 18, 2020 Initial ECG Impression Time: 00:25 Initial ECG Rate: 78 Initial ECG Rhythm: Normal Sinus Departure Communication (Admissions) 0438--JIMMIE BARNARD, HAS ARRANGED TRANSPORT FOR PT--[employer] WILL BE TRANSPORTING PT, ETA APPROXIMATELY 0530 Impression Primary Impression: Passive suicidal ideations Disposition: 65 XFER TO PSYCH HOSP/UNIT Condition: Stable Transfer Transfer Reason: Exceeds level of care Transfer Facility: [facility]. CIERA PAL Method of Transfer: Private Vehicle (SECURE TRANSPORT, [facility] [employer] ([employer])JAMARCUS) Departure-Patient Inst. Referrals: NO,LOCAL PHYSICIAN (PCP/Family) Primary Care Physician SUZIE KENT DO Feb 19, 2020 00:54
--- NOTE | 2020-02-19 01:00 | NUR ---
ASSUMED CARE OF PT FROM GEOFFREY SMITH AT END OF HIS SHIFT. PT AWAKE SITTING ON SIDE OF BED. DENIES CONCERNS OR NEEDS AT THIS TIME.
--- NOTE | 2020-02-19 04:00 | NUR ---
[facility] STAFF CALLED TO SPEAK WITH PT AT THIS TIME.
--- NOTE | 2020-02-19 04:14 | NUR ---
[facility] STAFF CALLED TO NOTIFY PT ACCEPTED AT FACILITY BY DR. KOENIG.
--- NOTE | 2020-02-19 04:22 | NUR ---
JIMMIE BARNARD CONTACTED ABOUT SECURE TRANSPORT OF PT TO [facility]. WILL CALL BACK WITH ETA FOR TRANSPORT.
[2020-02-19 05:18] VITALS: BP 148/76
== END 2020-02-19 05:18 ==
LOC: EDUNIT# 21:48 → ER 21:48
DX: R45.851 Suicidal ideations (principal); F41.9 Anxiety disorder, unspecified; F32.9 Major depressive disorder, single episode, unspecified; Z91.5 Personal history of self-harm; Z80.3 Family history of malignant neoplasm of breast
CPT/HCPCS: 80053; 80306; 81000; 84443; 85025; 93005; 99283; G0480 ×3; 36415; 80320; 80329